=== PATIENT | female | born 1965 | race Caucasian/White ===

== ENCOUNTER → 2017-10-05 16:53 | Outpatient (CLI) | payer OTHER, SELFPAY ==
--- NOTE | 2017-10-05 17:00 | BI_ITS ---
MAMMOGRAPHY - BILATERAL SCREENING REASON FOR EXAM: Female, 51 years old. Routine annual screening examination. PERTINENT HISTORY: Grandmother with breast cancer. TECHNIQUE: Digital bilateral breast arabella (3D mammographic acquisition) in the CC and MLO projections. 2-D mediolateral oblique (MLO) and craniocaudad (CC) views of both breasts were obtained. CAD: Full Field Digital Mammography with Computer Added Detection was performed. COMPARISON: Comparison is made with prior study dated May 26, 2014. FINDINGS: Breast Composition: There are scattered areas of fibroglandular density. There are no dominant masses or suspicious calcifications. No other significant abnormalities are identified. There has been no significant change since the prior study. BI/SCREENING MAMM (CAD), BILAT IMPRESSION: Stable bilateral screening mammogram. Yearly follow-up mammogram recommended. (A) ASSESSMENT CATEGORY: BIRADS Category 1: Negative. A letter regarding these results will be sent to the patient by the facility within 30 days. Approximately 10% of breast cancers are not detected by mammography. A normal mammogram should not delay biopsy of a clinically suspicious abnormality. [id number] Electronically Signed: Almas Ramirez MD at 8:13 EDT Tel [phone], Service support ,
== END ==
PROVIDERS: Family Provider Family Medicine; PCP Family Medicine; Visit Provider Obstetrics & Gynecology
DX: Z12.31 Encounter for screening mammogram for malignant neoplasm of breast (principal)
CPT/HCPCS: 77063; 77067

== ENCOUNTER → 2017-11-21 07:52 | Outpatient (CLI) | payer OTHER, SELFPAY ==
[2017-11-21 08:50] LABS: Calcium,Total 8.8 mg/dL (8.5-10.1); Cholesterol 213 mg/dL (200); Glucose 103 mg/dL (74-106); High Density Lipoprotein 54 mg/dL; Triglycerides 186 mg/dL; Very Low Density Lipoprotein 37 mg/dL (5-40)
[2017-11-22 11:03] LABS: Vitamin D,25 Hydroxy 25.8 ng/mL (29.95-100.01)
== END ==
PROVIDERS: Family Provider Family Medicine; PCP Family Medicine; Visit Provider Family Medicine
DX: Z00.00 Encounter for general adult medical examination without abnormal findings (principal)
CPT/HCPCS: 36415; 80061; 82306; 82310; 82947

== ENCOUNTER 2017-11-24 06:16 | Day surgery (SDC) | payer OTHER, SELFPAY ==
[2017-11-24] VITALS (7 sets, daily range): BP systolic 87–112; BP diastolic 46–89; PULSE 60–78; RESP 14–16; TEMP 35.5–36.9; O2SAT 96–98; BMI 24.2
--- NOTE | 2017-11-24 06:53 | PCM.HP.STD ---
Problem List (1) Screening for intestinal cancer Status: Acute History of Present Illness Date of Admission: 11/24/17 The patient is a 52 year old F who presents for screening for intestinal cancer in the form of colonoscopy. She has never had a previous examination. She has no abdominal pain. No change of bowel habits. No bright red blood per rectum or melena. She is a good feeling of wellness. She enjoys good health. Past Medical History Allergies No Known Allergies Allergy (Verified 11/22/17 11:16) Home Medications: Ambulatory Orders Medication Instructions Recorded Aspirin/Acetaminophen/Caffeine 1 each PO PRN PRN 11/22/17 [Excedrin Extra Strength Caplet] Biocleanse 1 tab PO DAILY 11/22/17 Cetirizine HCl [Zyrtec] 10 mg PO DAILY 11/22/17 L.acidoph,Paracasei, B.lactis 1 each PO DAILY 11/22/17 [Probiotic] Naproxen Sodium [Aleve] 220 mg PO Q8H PRN PRN 11/22/17 Smoking Status: Never smoker Tobacco Use: Non-smoker Review of Systems Constitutional: Denies: Weight Change Eyes: Denies: Blurred vision, Vision Change HEENT: Denies: Ear Pain, Eye Pain Cardiovascular: Denies: Chest Pain, Claudication Respiratory: Denies: Cough, Shortness of Breath Gastrointestinal: Denies: Hematemesis, Hematochezia Genitourinary: Denies: Dysuria, Hematuria Musculoskeletal: Denies: Leg Pain Skin: Denies: Jaundice Neurological: Denies: Confusion Psychiatric: Denies: Depression Endocrine: Denies: Change in Body Habitus Hematologic/ Lymphatic: Denies: Easy Bleeding VTE Information - Inpt Only VTE Present on Admission: No Patient Problems: Active and Suspected Problems Screening for intestinal cancer (Acute) - Physical Exam General: Alert, Oriented x3, Cooperative, No apparent distress HEENT: Atraumatic Oral: Moist Mucosa Neck: Supple, No JVD Lungs: Clear to auscultation Cardiovascular: Regular rate, Regular Rhythm Abdomen: Bowel Sounds Present Extremities: No clubbing Skin: No rashes Musculoskeletal: No Tenderness to Palpation of Joints or Extremities Lymphatic: No Cervical, Supraclavicular, or Inguinal Adenopathy Neurological: Cranial nerves II-XII grossly intact Psych/Mental Status: Normal Affect Vital Signs Temp Pulse Resp BP Pulse Ox 96 F L 62 14 112/89 H 98 05/25/18 06:38 11/24/17 06:38 11/24/17 06:38 11/24/17 06:38 11/24/17 06:38 Oxygen Delivery Method Room Air Weight: 149 lb 14.629 oz Body Mass Index (BMI) 24.2 Assessment/Plan Active and Suspected Problems Screening for intestinal cancer (Acute) I plan to proceed with colonoscopy with possible biopsy or polypectomy is indicated. The patient is aware of the technique, benefits, risks, alternatives. She has had an opportunity to ask and have questions answered. She has tolerated her bowel preparation. She presents via open access. We will proceed as noted. Lee Hinkle M.D., F.A.C.S.
--- NOTE | 2017-11-24 07:23 | PCM.OPRPT ---
Problem List (1) Screening for intestinal cancer Status: Acute Report of Operation Date of Procedure: 11/24/17 Pre-Operative Diagnosis: Screening for intestinal cancer Post-Operative Diagnosis: Normal colonoscopy Surgery/Procedure Performed:: Colonoscopy Description of Surgical Findings:: Timeout and informed consent was obtained. 52-year-old female was taken to the endoscopy suite. Throughout the procedure she received a total of 100 mg Demerol and 4.5 mg of Versed is intravenous sedation. Digital rectal exam performed. Normal anal tone. No mass lesions. Flexible colonoscope inserted the rectum advanced through a quite tortuous sigmoid colon. Slowly and carefully the scope was advanced in the transverse colon the looping of the sigmoid could be reduced and then with transabdominal pressure the scope was advanced through the transverse colon to the cecum. The cecum ileocecal valve area was nicely achieved. Bowel prep was good there was still some liquid and scattered solid stool throughout the colon but it could be irrigated and aspirated for the most part. I felt that I had adequate visualization of mucosa. The scope was carefully withdrawn from the cecum ascending colon transverse colon descending colon and sigmoid. Again the distinct tortuosity of the sigmoid noted. Excess fluid and air was aspirated free the scope was retroflexed within the rectum anorectal verge inspected this too was not remarkable. The procedure was completed with the patient tolerating it well. Impression Normal colonoscopy with tortuous sigmoid colon. No previous screening examination. Next screening examination anticipated in 10 years. Cc: Dr. Ruddy Phelps Medications were given at 0700. Scope inserted at 0703. The cecum was reached at 0713.28. The procedure was completed at 0720.42. Lee Hinkle M.D., F.A.C.S. Type of Anesthesia:: IV Sedation
== END 2017-11-24 08:05 | disposition home or self-care (01) ==
LOC: EN 06:17 → AC 06:18
PROVIDERS: Family Provider Family Medicine; PCP Family Medicine; Visit Provider Surgery
PROC: 0DJD8ZZ Inspection of Lower Intestinal Tract, Via Natural or Artificial Opening Endoscopic (ICD-10-PCS; CPT 45378; principal; 2017-11-24 07:10)
DX: Z12.11 Encounter for screening for malignant neoplasm of colon (principal); Z79.82 Long term (current) use of aspirin
CPT/HCPCS: 45378; 99152; 99153; J7120

== ENCOUNTER → 2020-01-08 | Outpatient (CLI) | payer OTHER, SELFPAY ==
[2017-11-24 06:38] VITALS: BMI 24.2
[2020-01-08 17:00] LABS: Hematocrit 41.1 % (37-47); Hemoglobin 13.3 g/dL (12.0-15.0); Mean Corp Hgb Conc 32.4 g/dL (32-36); Mean Corpuscular Hgb 31.9 pg (27.0-32.0); Mean Corpuscular Volume 98.6 fL (81-99); Mean Platelet Vol. 10.3 fl (6.2-12.0); Platelet Count 387 K/mm3 (150-450); RBC Distribution Width CV 12.9 % (11.6-14.6); RBC Distribution Width SD 46.2 fl (35.1-43.9); Red Blood Count 4.17 M/mm3 (4.2-5.4); White Blood Count 8.6 K/mm3 (4.4-11.0)
[2020-01-08 17:36] LABS: ALB/GLOB Ratio 1.1 RATIO (0.9-2.4); AST(SGOT) 26 U/L (15-37); Alanine Aminotransfer ALT/SGPT 39 U/L (13-56); Albumin, Serum 3.8 g/dL (3.2-5.0); Alkaline Phosphatase 87 U/L (45-117); Anion Gap 6 (5-15); BUN 22 mg/dL (7-18); BUN/Creat Ratio 34.2 RATIO (10-20); Calcium,Total 8.3 mg/dL (8.5-10.1); Chloride 104 mmol/L (98-107); Creatinine, Serum 0.64 mg/dL (0.55-1.02); EST Glomerular Filtration Rate 102 mL/min (>60); Est Glom Filt Rate - Afr Amer 124 mL/min (>60); Globulin 3.5 g/dL (2.2-4.2); Glucose 88 mg/dL (74-106); Protein, Total 7.3 g/dL (6.4-8.2); Sodium Level 138 mmol/L (136-145); Thyroid Stim Hormone (TSH) 2.74 uIU/mL (0.358-3.74)
== END | disposition home or self-care (01) ==
LOC: LAB 16:30
PROVIDERS: PCP Nurse Practitioner Family; Referring Provider Nurse Practitioner Family; Visit Provider Nurse Practitioner Family
DX: R53.82 Chronic fatigue, unspecified (principal)
CPT/HCPCS: 36415; 80053; 84439; 84443; 85027

== ENCOUNTER → 2022-08-26 | Outpatient (CLI) | payer OTHER, SELFPAY ==
[2022-08-26 10:19] LABS: Hematocrit 44.3 % (37-47); Hemoglobin 14.1 g/dL (12.0-15.0); Mean Corp Hgb Conc 31.8 g/dL (32-36); Mean Corpuscular Hgb 30.9 pg (27.0-32.0); Mean Corpuscular Volume 97.1 fL (81-99); Mean Platelet Vol. 10.4 fl (6.2-12.0); Platelet Count 508 K/mm3 (150-450); RBC Distribution Width SD 46.5 fl (35.1-43.9); Red Blood Count 4.56 M/mm3 (4.2-5.4); White Blood Count 8.2 K/mm3 (4.4-11.0)
[2022-08-26 11:12] LABS: ALB/GLOB Ratio 1.1 RATIO (0.9-2.4); AST(SGOT) 17 U/L (15-37); Alanine Aminotransfer ALT/SGPT 26 U/L (13-56); Albumin, Serum 3.8 g/dL (3.2-5.0); Alkaline Phosphatase 90 U/L (45-117); Anion Gap 6 (5-15); BUN 24 mg/dL (7-18); BUN/Creat Ratio 34.4 RATIO (10-20); Calcium,Total 9.2 mg/dL (8.5-10.1); Chloride 105 mmol/L (98-107); Cholesterol 202 mg/dL (200); EST Glomerular Filtration Rate 92 mL/min (>60); Est Glom Filt Rate - Afr Amer 112 mL/min (>60); Globulin 3.6 g/dL (2.2-4.2); Glucose 112 mg/dL (74-106); High Density Lipoprotein 52 mg/dL; Potassium 4.3 mmol/L (3.5-5.1); Protein, Total 7.4 g/dL (6.4-8.2); Sodium Level 139 mmol/L (136-145); Thyroid Stim Hormone (TSH) 1.23 uIU/mL (0.358-3.74); Triglycerides 93 mg/dL; Very Low Density Lipoprotein 19 mg/dL (5-40)
== END | disposition home or self-care (01) ==
LOC: LAB 08:57
PROVIDERS: PCP Nurse Practitioner Family; Referring Provider Nurse Practitioner Family; Visit Provider Nurse Practitioner Family
DX: R53.82 Chronic fatigue, unspecified (principal); Z13.1 Encounter for screening for diabetes mellitus; Z13.6 Encounter for screening for cardiovascular disorders
CPT/HCPCS: 36415; 80053; 80061; 84443; 85027

== ENCOUNTER → 2022-11-18 | Outpatient (CLI) | payer OTHER, SELFPAY ==
--- NOTE | 2022-11-18 08:03 | BI_ITS ---
MAMMOGRAPHY - BILATERAL SCREENING REASON FOR EXAM: Female, 56 years old. Routine annual screening examination. PERTINENT HISTORY: Grandmother with breast cancer. History of prior bilateral breast reduction surgery. TECHNIQUE: Digital bilateral breast dajuan (3D mammographic acquisition) in the CC and MLO projections. 2-D mediolateral oblique (MLO) and craniocaudad (CC) views of both breasts were obtained. CAD: Full Field Digital Mammography with Computer Added Detection was performed. COMPARISON: Comparison is made with prior study dated October 05, 2017 and May 26, 2014. FINDINGS: Breast Composition: There are scattered areas of fibroglandular density. There are no dominant masses or suspicious calcifications. Since prior study, the patient underwent bilateral breast reduction surgery. No other significant abnormalities are identified. There has been no significant change since the prior study. BI/SCRN MAMM (CAD)W/DAJUAN BILAT IMPRESSION: Stable bilateral screening mammogram. Yearly follow-up mammogram recommended. (A) ASSESSMENT CATEGORY: BIRADS Category 2: Benign. A letter regarding these results will be sent to the patient by the facility within 30 days. Approximately 10% of breast cancers are not detected by mammography. A normal mammogram should not delay biopsy of a clinically suspicious abnormality. [id number] Electronically Signed: Almas Ramirez MD at 9:48 EDT ,
== END | disposition home or self-care (01) ==
LOC: OPBI 08:01
PROVIDERS: PCP Nurse Practitioner Family; Referring Provider Nurse Practitioner Family; Visit Provider Nurse Practitioner Family
DX: Z12.31 Encounter for screening mammogram for malignant neoplasm of breast (principal)
CPT/HCPCS: 77063; 77067

== ENCOUNTER → 2023-10-10 | Outpatient (CLI) | payer OTHER, SELFPAY ==
[2023-10-10 17:13] LABS: Absolute Lymphocyte Count 3.07 X10^3/uL (0.83-4.51); Absolute Neutrophil Count 4.6 X10^3/uL (2.0-7.7); Basophil# 0.09 X10^3/uL; Eosinophil# 0.19 X10^3/uL; Eosinophils% 2.2 % (0-5); Hematocrit 41.6 % (37-47); Hemoglobin 13.6 g/dL (12.0-15.0); Lymphocyte # 3.07 X10^3/ul (0.83-4.51); Lymphocyte % 35.3 % (19-41); Mean Corp Hgb Conc 32.7 g/dL (32-36); Mean Corpuscular Hgb 31.2 pg (27.0-32.0); Mean Corpuscular Volume 95.4 fL (81-99); Mean Platelet Vol. 10.1 fl (6.2-12.0); Monocyte# 0.69 X10^3/uL; Monocyte% 7.9 % (0-10); NRBC Flagged by Analyzer 0 % (0-5); Neutrophil # 4.63 X10^3/uL (2.7-7.7); Neutrophil % 53.4 % (47-70); Platelet Count 423 K/mm3 (150-450); RBC Distribution Width CV 13.4 % (11.6-14.6); RBC Distribution Width SD 47.6 fl (35.1-43.9); Red Blood Count 4.36 M/mm3 (4.2-5.4); White Blood Count 8.7 K/mm3 (4.4-11.0)
[2023-10-10 17:47] LABS: ALB/GLOB Ratio 1.1 RATIO (0.9-2.4); AST(SGOT) 25 U/L (15-37); Alanine Aminotransfer ALT/SGPT 45 U/L (13-56); Albumin, Serum 3.9 g/dL (3.2-5.0); Alkaline Phosphatase 76 U/L (45-117); Anion Gap 6 (5-15); BUN 23 mg/dL (7-18); BUN/Creat Ratio 29.8 RATIO (10-20); Calcium,Total 8.7 mg/dL (8.5-10.1); Chloride 105 mmol/L (98-107); Cholesterol 258 mg/dL (200); Creatinine, Serum 0.77 mg/dL (0.55-1.02); EST Glomerular Filtration Rate 82 mL/min (>60); Est Glom Filt Rate - Afr Amer 99 mL/min (>60); Globulin 3.4 g/dL (2.2-4.2); Glucose 102 mg/dL (74-106); High Density Lipoprotein 46 mg/dL; Potassium 3.8 mmol/L (3.5-5.1); Protein, Total 7.3 g/dL (6.4-8.2); Sodium Level 138 mmol/L (136-145); T4 Free Direct 0.84 ng/dL (0.76-1.46); Triglycerides 402 mg/dL
[2023-10-10 17:48] LABS: Hemoglobin A1c 5.9 % (3.8-5.6)
== END | disposition home or self-care (01) ==
LOC: LAB 16:41
PROVIDERS: PCP Nurse Practitioner Family; Referring Provider Nurse Practitioner Family; Visit Provider Nurse Practitioner Family
DX: Z00.00 Encounter for general adult medical examination without abnormal findings (principal); Z13.1 Encounter for screening for diabetes mellitus; E55.9 Vitamin D deficiency, unspecified; Z13.5 Encounter for screening for eye and ear disorders; Z13.6 Encounter for screening for cardiovascular disorders; E04.9 Nontoxic goiter, unspecified; D69.6 Thrombocytopenia, unspecified
CPT/HCPCS: 36415; 80053; 80061; 82306; 83036; 84439; 84443; 85025

== ENCOUNTER → 2023-11-24 | Outpatient (CLI) | payer OTHER, SELFPAY ==
--- NOTE | 2023-11-24 08:15 | BI_ITS ---
MAMMOGRAPHY - BILATERAL SCREENING 3-D TOMOSYNTHESIS REASON FOR EXAM: Female, 58 years old. SCREENING PERTINENT HISTORY: No significant family history. TECHNIQUE: 2-D mammograms and 3-D Tomosynthesis of the breast (s) were performed. CAD was performed. COMPARISON: 11/18/2022 FINDINGS: The breast composition is composed of scattered fibroglandular density. Scattered benign calcifications are seen. No dense spiculated masses or suspicious microcalcifications are identified. No architectural distortion is identified. There is no skin thickening or retraction. There has been no significant change since the prior study. BI/SCRN MAMM (CAD)W/DAJUAN BILAT IMPRESSION: No mammographic signs of malignancy. Routine yearly mammograms recommended. ASSESSMENT CATEGORY: BIRADS Category 1: Negative. A letter regarding these results will be sent to the patient by the facility within 30 days. FOLLOW UP RECOMMENDATION: Yearly follow up mammogram recommended. (A) Approximately 10% of breast cancers are not detected by mammography. A normal mammogram should not delay biopsy of a clinically suspicious abnormality. Electronically Signed: Andrea Felix MD at 18:26 EDT ,
[2023-11-24 09:59] LABS: Follicle Stimulating Hormone 67.7 mIU/mL
[2023-11-25 04:07] LABS: PROGESTERONE 0.2 ng/mL (.)
[2023-12-02 02:07] LABS: Estrogen, Total, Serum 120 pg/mL (40-244)
== END | disposition home or self-care (01) ==
PROVIDERS: PCP Nurse Practitioner Family; Referring Provider Family Medicine; Visit Provider Nurse Practitioner Family
DX: Z12.31 Encounter for screening mammogram for malignant neoplasm of breast (principal)
CPT/HCPCS: 36415; 77063; 77067; 82672; 83001; 83002; 84144

== ENCOUNTER → 2024-08-07 | Outpatient (CLI) | payer BC, SELFPAY ==
[2024-08-13 17:07] LABS: HPV APTIMA, High Risk Negative (Negative)
== END | disposition home or self-care (01) ==
PROVIDERS: PCP Nurse Practitioner Family; Visit Provider Advanced Practice Midwife
DX: Z12.4 Encounter for screening for malignant neoplasm of cervix (principal); Z78.0 Asymptomatic menopausal state
CPT/HCPCS: 87624; 88175; G0145

== ENCOUNTER → 2025-02-21 | Outpatient (CLI) | payer BC, SELFPAY ==
--- OUTSIDE RECORDS SUMMARY | 2025-02-21 07:12 | XMS RPT_ITS | CCD ---
Author Organization [facility] Team Providers Care Magnetizer Name Role Phone Ruddy Phelps DO Primary Care Provider Aure vailable Andrea Tapia CNP Primary Care Provider Andrea Tapia CNP Primary Care Provider ANDREA TAPIA Primary Care Unavailable ANDREA TAPIA Primary Care Unavailable MARYA MCDERMOTT Referring Unavailable ANDREA TAPIA Primary Care Unavailable ANDREA TAPIA Primary Care Unavailable Knox PATIENT CARE ASSOCIATE-C, Andrea Diggs Primary Care Provi layla Willie PATIENT CARE ASSOCIATE-C, Andrea Diggs Referring Provider Griselda PATIENT CARE ASSOCIATE-CMonet Attending Provider Monet Villalobos Attending Unavailable Knox PATIENT CARE ASSOCIATE, Andrea Diggs Primary Care Unav ailable Knox PATIENT CARE ASSOCIATE, Andrea Diggs Referring Unav ailable Monet Villalobos Attending Unavailable Willie PATIENT CARE ASSOCIATE, Andrea Diggs Referring Unav ailable Knox PATIENT CARE ASSOCIATE, Andrea Diggs Primary Care Unav ailable Kenny PATIENT CARE ASSOCIATERobi Attending Unavailable Knox PATIENT CARE ASSOCIATE, Andrea Diggs Primary Care Unav ailable Knox PATIENT CARE ASSOCIATE, Andrea Diggs Referring Unav ailable Knox PATIENT CARE ASSOCIATE, Andrea Diggs Primary Care Unav ailable Salena Robins Attending Unavailable Willie PATIENT CARE ASSOCIATE, Andrea Diggs Referring Unav ailable Monet Villalobos Attending Unavailable Willie PATIENT CARE ASSOCIATE, Andrea Diggs Referring Unav ailable Knox PATIENT CARE ASSOCIATE, Andrea Diggs Primary Care Unav ailTari Price Attending Unavailable Willie PATIENT CARE ASSOCIATE, Andrea Diggs Referring Unav ailable Willie PATIENT CARE ASSOCIATE, Andrea Diggs Primary Care Unav ailable Knox PATIENT CARE ASSOCIATE, Andrea Diggs Primary Care Unav ailSalena Lamb Attending Unavailable Allergies Allergy Classification Reported Allergen(s) Allergy Type Date of Onset Reaction(s) Facility (9 sources) Multivitamin Additive; Translations: [MULTIVITAMIN ADDITIVE] Drug Intolerance 2 Rash [facility] Work Phone: Medications Current Medications Medication Drug Class(es) Dates Sig (Normalized) Sig (Original) acetaminophen 250 mg / aspirin 250 mg / caffeine 65 mg oral tablet (4 sources) Platelet Aggregation Inhibitor, Nonsteroidal Anti-inflammatory Drug, Central Nervous System Stimulant, Methylxanthine Start: 11-22-2017 Aspirin-Acetamin ophen-Caffeine (Excedrin Extra Strength Caplet) 1 EACH tablet Active 1 NMA PO NEEDED as needed for Pain November 22, 2017 12:00am [id number] 200 actuat albuterol 0.09 mg/actuat metered dose inhaler (6 sources) beta2-Adrenergic Agonist Start: 07-02-2023 take 2 puff(s) by inhalation every six hours as needed albuterol HFA (PROAIR HFA) 90 mcg/actuation inhaler Inhale 2 Puffs as instructed every 6 hours as needed. 1 Each 07/02/2023 Active Comment on above: Inhale 2 Puffs as in structed every 6 hours as needed. apremilast 30 mg oral tablet (6 sources) Start: 02-06-2025 take 1 tablet by mouth once daily Apremilast (Otezla) 30 mg tablet Active 30 mg PO .COMPLEX February 06, 2025 12:00am 30 mg orally once a day; take 1 tablet by mouth twice shannan ly apremilast (OTEZLA) 30 mg tablet Take 30 mg by mouth two times a day. Active Comment on above: Take 30 mg by mouth two times a day. benzonatate 100 mg oral capsule (4 sources) Non-narcotic Antitussive Start: take 1 capsule by mouth every eight hours as needed benzonatate (TESSALON PERLES) 100 mg capsule Take 1 capsule by mouth three times a day as needed for cough. 28 capsule 08/01/2023 Active Comment on above: Take 1 capsule by [facility] three times a day as needed for cough. Collagen (1 source) Start: 5 collagen Active PO February 06, 2025 12:00am doxycycline hyclate 100 mg oral tablet (3 sources) Tetracycline-class Drug Start: 4 End: 4 take 1 tablet by mouth twice daily doxycycline (VIBRA-TABS) 100 mg tablet Take 1 tablet by mouth two times a day for 7 days. 14 tablet 0 08/03/2023 08/10/2023 Active Start: 07-02-2023 End: 07-09-2023 take 1 tablet by mouth twice daily doxycycline (VIBRA-TABS) 100 mg tablet Take 1 tablet by mouth two times a day for 7 days. 14 tablet 0 07/02/2023 07/09/2023 Active Comment on above: Take 1 tablet by dario th two times a day for 7 days. DULoxetine 60 mg delayed release oral capsule (8 sources) Serotonin and Norepinephrine Reuptake Inhibitor Start: 04-29-20 21 DULoxetine (CYMBALTA) 60 mg capsule 04/29/2021 Active escitalopram 10 mg oral tablet (8 sources) Serotonin Reuptake Inhibitor Start: 11-02-19 19 take 1 tablet by mouth once daily escitalopram oxalate (LEXAPRO) 10 mg tablet Take 1 tablet by mouth once daily. 11/01/2018 Active Comment on above: Take 1 tablet by dario th once daily. FLUoxetine 20 mg oral tablet (3 sources) Serotonin Reuptake Inhibitor Start: 07-21-19 25 take 1 tablet by mouth once daily Fluoxetine 20 mg tablet Active 20 mg PO daily July 21, 2024 1:00am take 1 capsule by mouth once shannan ly FLUoxetine (PROZAC) 20 mg capsule Take 20 mg by mouth once daily. Active fluticasone propionate 0.05 mg/actuat metered dose nasal spray (8 sources) Corticosteroid Start: 11-15-2018 take 2 spray(s) by mouth once daily fluticasone (FLONASE) 50 mcg/actuation nasal spray Indications: Sinusitis, unspecified chronicity, unspecified location Use 2 Sprays in each nostril once daily. Rinse mouth after use. 1 Bottle 11/15/2018 Active Comment on above: Use 2 Sprays in each nostril once daily. Rinse mouth after use. 12 hr guaiFENesin 600 mg extended release oral tablet (2 sources) Start: 08-03-2023 End: 08-10-2023 take 1 tablet by mouth twice daily as needed guaiFENesin (MUCINEX) 600 mg 12 hr tablet Take 1 tablet by mouth two times a day as needed for cold/allergy symptoms (cough) for up to 7 days. 14 tablet 0 08/03/2023 08/10/2023 Active Comment on above: Take 1 tablet by dario two times a day as needed for cold/allergy symptoms (cough) for up to 7 days. L.Acidoph, Paracasei,B. Lactis (3 sources) Start: 11-22-2017 L.Acidoph, Paracasei,B. Lactis Active 1 EACH PO DAILY November 22, 2017 12:00am Start: 11-22-2017 L.Acidoph, Par acasei,B. Lactis Active 1 EACH PO DAILY 2017 11:00pm L.Acidoph,Paracasei,B.Animal is 1 EACH capsule (1 source) Start: 11-22-2017 take 1 capsule by mouth once daily L.Acidoph,Paracasei,B.Animalis 1 EACH capsule Active 1 NMA PO DAILY November 22, 2017 12:00am Lactobacillus acidophilus (8 sources) Lactobacillus ac idophilus (PROBIOTIC ORAL) Take by mouth. Active Lactobacillus ac idophilus (PROBIOTIC ORAL) Take by mouth. 0 Active Comment on above: Take by mouth. levocetirizine dihydrochloride 5 mg oral tablet (1 source) Histamine-1 Receptor Antagonist Start: take 1 tablet by mouth once daily Levocetirizine (Xyzal) 5 mg tablet Active 5 mg PO daily February 06, 2025 12:00am meloxicam 15 mg oral tablet (8 sources) Nonsteroidal Anti-inflammatory Drug Start: meloxicam (MOBIC) 15 mg tablet 06/28/2021 Active Multivit With Min-Folic Acid 0.4 mg tablet (1 source) Start: Multivit With Min-Folic Acid 0.4 mg tablet Active {tbl} PO February 06, 2025 12:00am omeprazole 20 mg delayed release oral capsule (1 source) Proton Pump Inhibitor Start: take 1 capsule by mouth once daily Omeprazole 20 mg capsule,delayed release(DR/EC) Active 20 mg PO daily February 06, 2025 12:00am prebiotic (1 source) Start: prebiotic Active PO February 06, 2025 12:00am rOPINIRole 0.5 mg oral tablet (9 sources) Nonergot Dopamine Agonist Start: 025 take 1 tablet by mouth once daily Ropinirole 0.5 mg tablet Active 0.5 mg PO daily August 21, 2024 1:00am Start: 06-24-2022 rOPINIRole (RE QUIP) 0.5 mg tablet 06/24/2022 Active 1 mg dose 1.5 ml semaglutide 1.34 mg/ml pen injector (2 sources) Start: 07-10-2024 inject 1 mg by subcutaneous injection every week semaglutide (OZEMPIC) 1 mg/0.75 ml subcutaneous pen injector Inject 1 mg subcutaneously one time a week. 07/10/2024 Active Completed/Discontinued Medications Medication Drug Class(es) Dates Sig (Normalized) Sig (Original) amoxicillin 500 mg oral tablet (1 source) Penicillin-class Antibacterial Start: 07-21-2024 End: 07-31-2024 take 1 tablet by mouth every twelve hours Amoxicillin 500 mg tablet Discontinued 500 mg PO Q12H 20 10 0 July 21, 2024 1:00am July 30, 2024 1:00am July 31, 2024 1:09am Biocleanse (4 sources) Start: 11-22-2017 End: 08-21-2024 Biocleanse Discontinued 1 {tbl} PO DAILY November 22, 2017 12:00am August 21, 2024 9:17am Start: 11-22-2017 take 1 tablet by dario th once daily Biocleanse Active 1 TABLET PO DAILY November 22, 2017 12:00am Start: 11-22-2017 take 1 tablet by dario th once daily Biocleanse Active 1 TABLET PO DAILY 2017 11:00pm cetirizine hydrochloride 10 mg oral capsule (4 sources) Histamine-1 Receptor Antagonist Start: 11-22-2017 End: 08-21-2024 take 1 capsule by mouth once daily Cetirizine (Zyrtec) 10 MG capsule Discontinued 10 mg PO DAILY November 22, 2017 12:00am August 21, 2024 9:17am estradiol 0.1 mg/ml vaginal cream (1 source) Estrogen Start: 08-21-2024 End: 02-06-2025 Estradiol 0.01 % (0.1 mg/gram) cream Discontinued 0 VAGINAL DAILY 42.5 0 August 21, 2024 1:00am February 06, 2025 1:23pm pea sized amount using finger tip method every night x 2 weeks then 2-3 times a week there after. naproxen sodium 220 mg oral tablet (4 sources) Nonsteroidal Anti-inflammatory Drug Start: 11-22-2017 End: 08-21-2024 take 1 tablet by mouth every eight hours as needed for pain Naproxen Sodium (Aleve) 220 MG tablet Discontinued 220 mg PO EVERY 8 HOURS NEEDED as needed for Pain November 22, 2017 12:00am August 21, 2024 9:17am Semaglutide 3 mg tablet (1 source) Start: 08-21-2024 End: 02-06-2025 take 1 tablet by mouth once daily Semaglutide 3 mg tablet Discontinued 3 mg PO daily August 21, 2024 1:00am February 06, 2025 1:23pm Problems Active Problems Problem Classification Problem Date Documented Date Episodic/Chronic Fever of unknown origin (1 source) Fever; Translations: [Fever, unspecified] 08-03-2023 Episodic Menopausal disorders (2 sources) Atrophy of vagina; Translations: [Postmenopausal atrophic vaginitis] Onset: 09-05-2024 08-21-2024 Chronic Other lower respiratory disease (1 source) Lower respiratory tract infection; Translations: [Unspecified acute lower respiratory infection] 07-02-2023 Episodic Other lower respiratory disease (1 source) Cough; Translations: [Acute cough] 08-01-2023 Episodic Other nutritional; endocrine; and metabolic disorders (2 sources) Body mass index 25-29 - overweight; Translations: [Overweight] 08-21-2024 Episodic Residual codes; unclassified (2 sources) Postmenopausal state; Translations: [Asymptomatic menopausal state] 08-21-2024 Episodic Unclassified (1 source) Acute cough; Translations: [Acute cough] Onset: 08-01-2023 Viral infection (1 source) Viral disease; Translations: [Viral infection, unspecified] 08-03-2023 Episodic Past or Other Problems Problem Classification Problem Date Documented Da te Episodic/Chronic Malaise and fatigue (8 sources) Fatigue; Translations: [Other fatigue] Onset: 04-10-2012 04-10-2012 Episodic Other nutritional; endocrine; and metabolic disorders (1 source) Overweight; Translations: [Overweight] Onset: 09-05-2024 Episodic Other screening for suspected conditions (not mental disorders or infectious disease) (13 sources) Thyroid function tests abnormal; Translations: [Other specified abnormal findings of blood chemistry] Onset: 04-10-2012 04-10-2012 Episodic Other upper respiratory infections (6 sources) Viral upper respiratory tract infection; Translations: [Acute upper respiratory infection, unspecified] Onset: 07-29-2024 Episodic Residual codes; unclassified (1 source) Asymptomatic menopausal state; Translations: [Asymptomatic menopausal state] Onset: 09-05-2024 Episodic Results Test Name Value Interpretation Reference Range Facility Solvent Plant Treater Office Visit Reporton 02-06-2025 Solvent Plant Treater Office Visit Report [facility]'s [address], [address] [place] [address] OFFICE VISIT Date of Service: 02/06/25 MR#: [id number] Acct: [id number] Name: TOMEKA ALEXANDRE Rep #: [id number] : 1965 Provider: DAMIEN Leigh Age/Sex: 59/F [place] [facility] [place]: Signed Intake Vital Signs 08/21/24 08:14 01/31/25 08:41 02/06/25 13:17 Height 5 ft 6 in 5 ft 6 in 5 ft 6 in Weight: 161 lb 174 lb 9 oz BMI 25.9 28.1 BP 114/77 142/76 H Pulse 72 Intake Visit Reasons: NEW WEIGHT MANAGEMENT (ok per AW) Level Vial Inside Grinder Required: No Is patient in pain?: No Allergies No Known Allergies Allergy (Verified 02/06/25 13:16) Medications ???Medication ???Instructions ???Recorded ???Confirmed ???Type L.acidoph,paracasei,B .animalis 10 1 ea PO DAILY 11/22/17 02/06/25 H istory billion cell capsule aspirin-acetaminophen -caffeine 250 1 ea PO PRN PRN Pain 11/22/17 History mg-250 mg-65 mg tablet (Excedrin Extra Strength) fluoxetine 20 mg tablet 20 mg PO QDAY 07/21/24 02/06/25 Hi story ropinirole 0.5 mg tablet 0.5 mg PO QDAY 08/21/24 02/06/25 H istory apremilast 30 mg tablet (Otezla) 30 mg PO .COMPLEX 02/06/25 5 History collagen PO 02/06/25 02/06/25 History levocetirizine 5 mg tablet (Xyzal) 5 mg PO QDAY 02/06/25 02/06/25 H istory multivitamin with minerals-folic tab PO 02/06/25 02/06/25 History acid 0.4 mg tablet omeprazole 20 mg capsule,delayed 20 mg PO QDAY 02/06/25 02/06/25 Hi story release prebiotic PO 02/06/25 History Last Menstrual Period: 07/03/14 Zika: Zika virus screening: Negative : No Have you fallen in the past year?: No PFSH PFSH Medical History Pneumonia Kidney stones Headache Seasonal allergies Surgical History Hx of breast reduction, elective H/O splenectomy Family History Father Alcoholism Mother Diabetes Hypertension High cholesterol Social History adopted: No household members: spouse housing: house number of children: 2 current occupational status: employed current occupation: [employer] pets and animals: Yes pets and animals: cat(s) and dog(s) history of recent travel: No sexually active: Yes Smoking Status: Never smoker second hand exposure: No alcohol intake: never substance use type: does not use well-balanced diet: daily or most days caffeine: Yes Type: coffee Number of servings: 1 eating out: other details: during the past year weight has: remained stable what type of physical activity do you participate in: yoga frequency: 3-4 times per week yola/jainism: Hoahaoism seatbelt use: always do you feel safe at home: Yes additional social history: - Yossi CHRISTIANO 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 She reports she feels sluggish; feels disgusting. She eats right and exercises and feels she can still not find a budge in her weight loss. She would like to make changes now so that her future health can benefit from it. She was previously taking semaglutide (most recent) compounded and got sick from this (nausea/vomiting); was on 2.5mg dosing x 6 months. Prior to this she was taking phentermine--did well with this and lost approx 10-15 lbs. Female Reproductive History Last Menstrual Period: 07/03/14 ROS Const Reports as per HPI, Denies difficulty sleeping, Denies excessive sweating, Denies fatigue (new onset severe) and Denies fever(s) Eyes Denies change in vision and Denies diplopia ENT Denies dizziness Card Denies chest pain, Denies dyspnea, Denies dyspnea on exertion, Denies palpitations and Denies rapid heart rate Resp Denies dyspnea and Denies dyspnea on exertion GI Reports as per HPI, Denies abdominal pain and Denies constipation Musc Denies numbness Neuro No confusion, No dizziness, No memory loss and No numbness Psych Denies confusion, Denies depression, Denies memory loss, Denies mood swings and Denies suicidal ideation Endo Denies excessive sweating, Denies fatigue (new onset severe), Denies palpitations and Reports other (denies symptoms of hypoglycemia) Exam Const General: cooperative, healthy appearing, comfortable and no acute distress Orientation: alert HENMT Head: normal to inspection and normocephalic Eyes General: appearance normal, both eyes and all related structures Neck Neck: normal visual inspection, no lymphadenopathy and trachea midline Thyroid: thyroid normal Resp Effort Inspection: normal respiratory effort Auscultation: clear to auscult (more content not included)... Normal [facility] Solvent Plant Treater Office Visit Reporton 08-21-2024 Solvent Plant Treater Office Visit Report [facility] [address], [address] [place] [address] OFFICE VISIT Date of Service: 08/21/24 MR#: [id number] Acct: [id number] Name: TOMEKA ALEXANDRE Rep #: [id number] : 1965 Provider: DAMIEN Leigh Age/Sex: 58/F [place] [facility] [place]: Signed Intake Vital Signs 08/07/24 11:01 08/21/24 08:14 Height 5 ft 6 in 5 ft 6 in Weight: 161 lb BMI 25.9 BP 114/77 Intake Visit Reasons: HRT Level Vial Inside Grinder Required: No Is patient in pain?: No Allergies No Known Allergies Allergy (Verified 08/21/24 08:12) Medications ???Medication ???Instructions ???Recorded ???Confirmed ???Type L.acidoph,paracasei,B .animalis 10 1 ea PO DAILY 11/22/17 08/21/24 H istory billion cell capsule aspirin-acetaminophen -caffeine 250 1 ea PO PRN PRN Pain 11/22/17 History mg-250 mg-65 mg tablet (Excedrin Extra Strength) fluoxetine 20 mg tablet 20 mg PO QDAY 07/21/24 08/21/24 Hi story ropinirole 0.5 mg tablet 0.5 mg PO QDAY 08/21/24 08/21/24 H istory semaglutide 3 mg tablet 3 mg PO QDAY 08/21/24 08/21/24 His tory PFSH Medical History Pneumonia Kidney stones Headache Seasonal allergies Surgical History Hx of breast reduction, elective H/O splenectomy Family History Father Alcoholism Mother Diabetes Hypertension High cholesterol Social History adopted: No household members: spouse housing: house number of children: 2 current occupational status: employed current occupation: [employer] pets and animals: Yes pets and animals: cat(s) and dog(s) history of recent travel: No sexually active: Yes Smoking Status: Never smoker second hand exposure: No alcohol intake: never substance use type: does not use well-balanced diet: daily or most days caffeine: Yes Type: coffee Number of servings: 1 eating out: other details: during the past year weight has: remained stable what type of physical activity do you participate in: yoga frequency: 3-4 times per week yola/jainism: Hoahaoism seatbelt use: always do you feel safe at home: Yes additional social history: - [employer] HRT Details: TOMEKA ALEXANDRE is a 58 year old who presents for discussion regarding post menopausal symptoms. She reports she is experiencing low libido; vaginal dryness; and resistant weight loss. She is currently taking semaglutide compound. Previously took phentermine and did well on this. Female Reproductive History Menopausal Symptoms: Yes change in libido ROS Const Constitutional: Reports weight loss (with medication-intentiona l); Denies chills Cardio Card: Denies palpitations Resp Resp: Reports cough (ongoing since ) : Reports sexual dysfunction (painful due to dryness) and vaginal dryness; Denies pelvic pain, vaginal discharge, vaginal odor or vaginal pruritus Psych Psych: Reports change in libido Exam Const General: cooperative, healthy appearing, comfortable and no acute distress Orientation: alert, awake and oriented x3 Resp Effort Inspection: normal respiratory effort, able to speak in complete sentences and symmetric chest movement Skin General: no rashes or lesions noted Neuro General: patient alert, patient awake and patient oriented x3 Cognition: normal cognition Speech: speech normal Gait: normal gait Psych Appearance: grossly normal and well kempt Mental Status: mental status grossly normal Affect: normal affect Speech and Movement: speech and movement normal Attitude: cooperative Thought Process: normal Thought Content: normal Judgment: judgment good Coding Level of Care Code Established Pt Off vis,est,level 3 Patient Type Established Diagnoses Vaginal atrophy N95.2 Post-menopausal Z78.0 Overweight (BMI 25.0-29.9) E66.3 Assessment and Plan Assessment and Plan (1) Vaginal atrophy: Status: Acute Plan: Start estradiol-instruction s for use given to patient. Side effects advised. Expectations of results discussed. RTO for med check in 12 weeks. (2) Post-menopausal: Status: Acute Plan: Discussed HRT--will defer this treatment for now. Enroll into Weight Management Program--current BMI stable; interested in different lifestyle modifications. (3) Overweight (BMI 25.0-29.9): Status: Acute Plan: WM program--currently on compounded semaglutide--prescrib ed elsewhere. 08/21/24 7471 Date Monet QUEZADA Cosigner Signature: Date (if applicable) CC: Normal [facility] PAP IG HPV APTIMA 16/18,45on 08-13-2024 ADEQ Comment Normal . [facility] Comment on above: Order Comment: Speci men Comment: [id number] Specimen Comment: Source.............Cervix Specimen Comment: Other..............Post Menopausal Specimen Comment: No. of containers..01 ThinPrep Vial Result Comment: Sati sfactory for evaluation. Endocervical and/or squamous metaplastic cells (endocervical component) are present. Performed By: #### L 7400.0280 #### [facility] [address] [place], [address] COMM . Normal . [facility] Comment on above: Order Comment: Speci men Comment: [id number] Specimen Comment: Source.............Cervix Specimen Comment: Other..............Post Menopausal Specimen Comment: No. of containers..01 ThinPrep Vial Performed By: #### L 7400.0280 #### [facility] [address] [place], [address] COMMENT Comment Normal . [facility] Comment on above: Order Comment: Speci men Comment: [id number] Specimen Comment: Source.............Cervix Specimen Comment: Other..............Post Menopausal Specimen Comment: No. of containers..01 ThinPrep Vial Result Comment: This liquid based ThinPrep(R) pap test was screened with the use of an image guided system. Performed By: #### L 7400.0280 #### [facility] [address] [place], [place], [id number] DIAG Comment Normal . [facility] Comment on above: Order Comment: Speci men Comment: [id number] Specimen Comment: Source.............Cervix Specimen Comment: Other..............Post Menopausal Specimen Comment: No. of containers..01 ThinPrep Vial Result Comment: NEGA TIVE FOR INTRAEPITHELIAL LESION OR MALIGNANCY. Performed By: #### L [id number] #### [facility] [address] [place], [place], [id number] HPV APTIMA, HR Negative Normal Negative [facility] Comment on above: Order Comment: Speci men Comment: [id number] Specimen Comment: Source.............Cervix Specimen Comment: Other..............Post Menopausal Specimen Comment: No. of containers..01 ThinPrep Vial Result Comment: This nucleic acid amplification test detects fourteen high- risk HPV types (16,18,31,33,35,39,45,51,52,56,58,59,66,68) without differentiation. Performed By: #### L 7400.0280 #### [facility] [address] [facility] [place], [place], [id number] HPV Lynn Rfx Comment Normal . [facility] Comment on above: Order Comment: Speci men Comment: [id number] Specimen Comment: Source.............Cervix Specimen Comment: Other..............Post Menopausal Specimen Comment: No. of containers..01 ThinPrep Vial Result Comment: Crit eria not met, HPV Genotype not performed. Performed at: [address] [id number] Road[address] Engineer: Sultana Dela Cruz MD, Phone: [phone] Performed at: =[address] [id number] Road[address] Engineer: Sultana Dela Cruz MD, Phone: [phone] Performed By: #### L [id number] #### [facility] [address] [place], [address] PAPSMR Comment Normal . [facility] [facility] Comment on above: Order Comment: Speci men Comment: [id number] Specimen Comment: Source.............Cervix Specimen Comment: Other..............Post Menopausal Specimen Comment: No. of containers..01 ThinPrep Vial Result Comment: The Pap smear is a screening test designed to aid in the detection of premalignant and malignant conditions of the uterine cervix. It is not a diagnostic procedure and should not be used as the sole means of detecting cervical cancer. Both false-positive and false-negative reports do occur. Performed By: #### L [id number] #### [facility] [address] [place], [place], [address] PERFORM Comment Normal . [facility] Comment on above: Order Comment: Speci men Comment: [id number] Specimen Comment: Source.............Cervix Specimen Comment: Other..............Post Menopausal Specimen Comment: No. of containers..01 ThinPrep Vial Result Comment: Yas Mayberry, Material Combiner (ASCP) Performed By: #### L [id number] #### [facility] [address] [place], [place], [address] Solvent Plant Treater Office Visit Reporton 08-07-2024 Solvent Plant Treater Office Visit Report [facility] [address], [address] [place] [address] OFFICE VISIT Date of Service: 08/07/24 MR#: [id number] Acct: [id number] Name: TOMEKA ALEXANDRE Rep #: [id number] : 1965 Provider: DONOVAN Batista ams Age/Sex: 58/F Location[place] [facility] Status: Signed Intake Vital Signs 11/24/17 06:38 07/21/24 08:58 08/07/24 10:51 08/07/24 11:01 Height 5 ft 6 in 5 ft 6 in 5 ft 6 in 5 ft 6 in Weight: 160 lb BMI 25.8 BP 116/74 Intake Visit Reasons: Annual (LANDMEN) Level Vial Inside Grinder Required: No Is patient in pain?: No Allergies No Known Allergies Allergy (Verified 08/07/24 10:52) Medications ???Medication ???Instructions ???Recorded ???Confirmed ???Type Biocleanse 1 tab PO DAILY 11/22/17 08/07/24 H istory L.acidoph,paracasei,B .animalis 10 1 ea PO DAILY 11/22/17 08/07/24 H istory billion cell capsule aspirin-acetaminophen -caffeine 250 1 ea PO PRN PRN Pain 11/22/17 History mg-250 mg-65 mg tablet (Excedrin Extra Strength) cetirizine 10 mg capsule (Zyrtec) 10 mg PO DAILY 11/22/17 08/07/24 History naproxen sodium 220 mg tablet 220 mg PO Q8H PRN PRN Pain 8 08/07/24 History (Aleve) fluoxetine 20 mg tablet 20 mg PO QDAY 07/21/24 08/07/24 Hi story Post menopausal: Yes Patient : No : No Current gender identity: female [facility] Medical History (Updated 08/07/24 @ 11:01 by Martha Gray) Pneumonia Kidney stones Headache Seasonal allergies Surgical History (Updated 08/07/24 @ 10:59 by Martha Gray) Hx of breast reduction, elective H/O splenectomy Family History (Updated 08/07/24 @ 10:58 by Martha Gray) Father Alcoholism Mother Diabetes Hypertension High cholesterol Social History adopted: No household members: spouse housing: house number of children: 2 current occupational status: employed current occupation: [employer] pets and animals: Yes pets and animals: cat(s) and dog(s) history of recent travel: No sexually active: Yes Smoking Status: Never smoker second hand exposure: No alcohol intake: never substance use type: does not use well-balanced diet: daily or most days caffeine: Yes Type: coffee Number of servings: 1 eating out: other details: during the past year weight has: remained stable what type of physical activity do you participate in: yoga frequency: 3-4 times per week yola/jainism: Hoahaoism seatbelt use: always do you feel safe at home: Yes additional social history: - Yossi HPI Encounter for routine gynecological examination Details: TOMEKA ALEXANDRE is a 58 year old who presents for new annual exam. had yeast infection from antibiotics and was on Monistat. went through menopause at age 44 and does have some vaginal dryness. would like to try different lubricants for intercourse and vitamin E oil before any estrogen cream. On Semaglutide for weight loss without much success. would like to discuss weight loss options at follow up visit Last PAP: 2017 History of abnormal PAP: no Last mammogram: - ordered by PCP History of abnormal mammogram: no Colon cancer screenin Other preventative health care screenings: PCP Female Reproductive History Questions: metorrhagia: No, sexually active: Yes, dyspareunia: No and PCB: No ROS Const Constitutional: Reports system reviewed and no additional complaints, except as documented Cardio Card: Reports system reviewed and no additional complaints, except as documented Resp Resp: Reports system reviewed and no additional complaints, except as documented GI GI: Reports system reviewed and no additional complaints, except as documented : Reports system reviewed and no additional complaints, except as documented; Denies difficulty voiding, dysuria or urinary frequency Skin Skin/Breast: Reports system reviewed and no additional complaints, except as documented Neuro Neuro: Reports system reviewed and no additional complaints, except as documented Psych Psych: Reports system reviewed and no additional complaints, except as documented; Denies anhedonia, anxiety or depression Exam Const General: cooperative, healthy appearing, comfortable and no acute distress Orientation: alert, awake and oriented x3 Neck Neck: normal visual inspection and full ROM Thyroid: thyroid normal Chest Breast inspection: normal inspection of the breasts and normal inspection of the axillae Breast palpation: normal palpation of the breasts and normal palpation of the axillae Resp Effort Inspection: normal respiratory effort, able to speak in complete sentences and symmetric chest movement GI Inspection: normal to inspection Palpation: soft Rectal Exam: visual inspection normal External Female Exam: normal ext (more content not included)... Normal [facility] Mary Kate 07-21-2024 [facility] Telephone ([facility]) TOMEKA ALEXANDRE ([id number]) 1965 F Date Time Provider Department 07/21/24 MARYA MCDERMOTT [facility] During your visit today, we recorded the following information about you: Marya Mcdermott APRN.PROFESSOR OF FOOD BIOCHEMISTRY 07/21/2024 8:08 AM Signed You tested negative for COVID, Influenza, and RSV. Please contact us if your symptoms are worsening or not improving. Please advise Marya Mcdermott APRN.CNP 07/21/2024 8:29 AM Signed Attempted to call patient. Requested call back. Please discuss when calls back. Rohini Miller MA 07/22/2024 8:04 AM Signed Patient given results and verbalized understanding of instructions given. Rohini Miller MA Allergies As of Date: 07/21/2024 Noted Allergy Reaction MULTIVITAMIN ADDITIVE 04/10/2012 2 - Rash Comments: Took a multivitamin for energy which had lots of B vitamins. Broke out in a rash after 2 days. Date Reviewed: 07/20/2024 Reviewed by: Elsi Sampson LPN - Fully Assessed Reason for Visit: Results [95] Prescriptions as of 07/22/2024 - semaglutide (OZEMPIC) 1 mg/0.75 ml subcutaneous pen injector Inject 1 mg subcutaneously one time a week. - FLUoxetine (PROZAC) 20 mg capsule Take 20 mg by mouth once daily. - apremilast (OTEZLA) 30 mg tablet Take 30 mg by mouth two times a day. - benzonatate (TESSALON PERLES) 100 mg capsule Take 1 capsule by mouth three times a day as needed for cough. - albuterol HFA (PROAIR HFA) 90 mcg/actuation inhaler Inhale 2 Puffs as instructed every 6 hours as needed. - rOPINIRole (REQUIP) 0.5 mg tablet - meloxicam (MOBIC) 15 mg tablet - DULoxetine (CYMBALTA) 60 mg capsule - Lactobacillus acidophilus (PROBIOTIC ORAL) Take by mouth. - escitalopram oxalate (LEXAPRO) 10 mg tablet Take 1 tablet by mouth once daily. - fluticasone (FLONASE) 50 mcg/actuation nasal spray Use 2 Sprays in each nostril once daily. Rinse mouth after use. Problem List As Of Date 07/21/2024 Noted Resolved Abnormal thyroid blood test [R79.89] 04/10/2012 Fatigue [R53.83] 04/10/2012 Encounter Status:Closed by ROHINI MILLER on 07/22/24 Normal [facility] Urgent Care Visit Reporton 0 07-21-2024 Urgent Care Visit Report [facility] [address], [address] [place] [id number] OFFICE VISIT Date of Service: 07/21/24 MR#: [id number] Acct: [id number] Name: TOMEKA ALEXANDRE Rep #: [id number] : 1965 Provider: [facility] Age/Sex: 58/F Location[place] [facility] Status: Signed Intake Vital Signs 11/24/17 06:38 07/21/24 08:58 Height 5 ft 6 in 5 ft 6 in Weight: 161 lb BMI 25.9 Blood Pressure Location Lt brachial Position Sitting Respiration 12 Pulse 104 H Pulse Source NIBP Temp 99.2 F H Temp Source Oral Pulse Oximetry (%) 96 Oxygen Delivery Method room air Intake Visit Reasons: sore throat, drainage, fever Allergies No Known Allergies Allergy (Verified 07/21/24 08:59) Medications ???Medication ???Instructions ???Recorded ???Confirmed ???Type Biocleanse 1 tab PO DAILY 11/22/17 07/21/24 History L.acidoph,paracasei,B .animalis 10 1 ea PO DAILY 11/22/17 07/21/24 History billion cell capsule aspirin-acetaminophen -caffeine 250 1 ea PO PRN PRN Pain 11/22/17 07/21/24 History mg-250 mg-65 mg tablet (Excedrin Extra Strength) cetirizine 10 mg capsule (Zyrtec) 10 mg PO DAILY 11/22/17 07/21/24 History naproxen sodium 220 mg tablet 220 mg PO Q8H PRN PRN Pain 11/22/17 07/21/24 History (Deni) amoxicillin 500 mg tablet 500 mg PO Q12H 10 days #20 tabs 07/21/24 07/21/24 Rx fluoxetine 20 mg tablet 20 mg PO QDAY 07/21/24 07/21/24 History PFSH Social History Smoking Status: Never smoker HPI HPI Details: TOMEKA ALEXANDRE, is a 58 F who presents to the office today for fever, severe sore throat, white puss pockets on tonsils. Ran isaac strep test that was negative. This is worsening over the last two days. She has tried OTC medications with minimal relieve. She states probable sick contacts. ROS Const Constitutional: Positive for fever(s) (Tmax: 100.8); No body ache, chills, fatigue, headache(s) or change in appetite Eyes Eyes: No blurry vision, change in vision, double vision, irritation, discharge, vision loss, dry eyes, bulging eyes, floaters, visual disturbances, eye pain, Light sensitivity, spots in vision, tunnel vision or other ENT ENT: Positive for nasal congestion (at night), sinus pain, nasal discharge, post nasal drip, hoarseness, neck pain and sore throat; No ear or mastoid pain, ear discharge, ear pressure, tinnitus, dizziness/vertigo, nosebleed/epistaxis, nose pain, sinus pressure, headache(s), facial pain, dental pain, difficulty swallowing, bad breath, lip swelling, mouth lesions, mouth pain, tongue swelling or throat swelling Resp Respiratory: Positive for cough Cough: Yes non-productive; No change in phlegm color, chest congestion, hemoptysis, pain on inspiration, shortness of breath, pain with cough, stridor or wheezing Cardio Cardiology: No chest pain at rest, chest pain with exertion, shortness of breath, dyspnea on exertion or lightheadedness Gastro GI: No abdominal pain, change in bowel habits, constipation, diarrhea, difficulty swallowing, nausea/dyspepsia or vomiting Genitourinary-Female: No burning urination or urinary frequency Musc Musculoskeletal: Positive for neck pain; No joint pain Skin Skin: No rash Neuro Neurology: No headache(s) or visual disturbances Psych Psychiatric: No change in appetite Endo Endocrine: No fatigue Aller/Imm Allergy/Immunologic: No lip swelling, throat swelling, tongue swelling or wheezing Exam Const General: cooperative, healthy appearing, comfortable and no acute distress Orientation: alert, awake and oriented x3 [facility] Head: normal to inspection and normocephalic Ears: hearing grossly normal bilaterally, external ears normal and TM's normal bilaterally Nose: external nose normal, nares normal and no nasal discharge Face and sinus: normal facial exam and sinuses nontender Mouth: oral mucosae normal, lip normal, tongue normal, oropharynx normal and moist mucous membranes Throat: uvula midline, abnormal tonsil bilaterally exudates, posterior oropharynx abnormal erythema and exudates and postnasal drainage Eyes General: appearance normal, both eyes and all related structures Neck Neck: normal visual inspection and no lymphadenopathy Carotids: normal carotid upstroke Lymphatic: no lymphadenopathy noted Chest Chest palpation inspection: normal inspection of the chest Resp Effort Inspection: normal respiratory effort, able to speak in complete sentences, symmetric chest movement, no cough and no stridor Auscultation: Bilateral: Clear to Auscultation Cardio Rate: regular rate Rhythm: regular rhythm Heart Sounds: S1 normal, S2 normal and no murmurs GI Inspection: normal to inspection Auscultation: normal bowel sounds Palpation: soft Skin General: no rashes or lesions noted Neuro Speech: s (more content not included)... Normal [facility] CNOVon 07-20-2024 CNOV Office Visit (UCWSTR ) TOMEKA ALEXANDRE ([id number]) 1965 F Date Time Provider Department 07/20/24 9:45 AM RADHA SULTANA [facility] During your visit today, we recorded the following information about you: Temperature Pulse Respiration Blood pressure 99.4 degrees 93/minute 18/minute 110/71 Weight 75 kg Radha Sultana APRN.PROFESSOR OF FOOD BIOCHEMISTRY 07/20/2024 10:17 AM Signed Subjective HPI Tomeka Alexandre is a 58 year old female who presents with one day of fever, body aches, sore throat, headache. She has had some intermittent nausea. Fever at home was 100.5 F. She took tylenol this morning. A coworker's daughter was treated for strep last week. . Review of Systems Constitutional: Positive for fever. HENT: Positive for congestion and sore throat. Negative for ear pain. Respiratory: Negative for cough. Cardiovascular: Negative. Gastrointestinal: Negative for diarrhea, nausea and vomiting. Musculoskeletal: Positive for myalgias. Neurological: Positive for headaches. BP 110/71 Pulse 93 Temp 37.4 ?C (99.4 ?F) Resp 18 Wt 75 kg (165 lb 5.5 oz) LMP 04/15/2011 SpO2 96% BMI 26.69 kg/m? PAST MEDICAL HISTORY Diagnosis Date NEGATIVE MEDICAL HISTORY PAST SURGICAL HISTORY Procedure Laterality Date LIGATE FALLOPIAN TUBE 1998 REDUCTION OF LARGE BREAST 2018 REMOVAL OF SPLEEN TOTAL ALLERGIES Multivitamin Additive MEDICATIONS semaglutide (OZEMPIC) 1 mg/0.75 ml subcutaneous pen injector Inject 1 mg subcutaneously one time a week. FLUoxetine (PROZAC) 20 mg capsule Take 20 mg by mouth once daily. rOPINIRole (REQUIP) 0.5 mg tablet Lactobacillus acidophilus (PROBIOTIC ORAL) Take by mouth. apremilast (OTEZLA) 30 mg tablet Take 30 mg by mouth two times a day. (Patient not taking: Reported on 07/20/2024) benzonatate (TESSALON PERLES) 100 mg capsule Take 1 capsule by mouth three times a day as needed for cough. (Patient not taking: Reported on 07/20/2024) albuterol HFA (PROAIR HFA) 90 mcg/actuation inhaler Inhale 2 Puffs as instructed every 6 hours as needed. (Patient not taking: Reported on 08/01/2023) meloxicam (MOBIC) 15 mg tablet (Patient not taking: Reported on 07/10/2022) DULoxetine (CYMBALTA) 60 mg capsule (Patient not taking: Reported on 07/20/2024) escitalopram oxalate (LEXAPRO) 10 mg tablet Take 1 tablet by mouth once daily. (Patient not taking: Reported on 07/10/2022) fluticasone (FLONASE) 50 mcg/actuation nasal spray Use 2 Sprays in each nostril once daily. Rinse mouth after use. (Patient not taking: Reported on 07/02/2023) No family history on file. Social History Tobacco Use Smoking status: Never Smokeless tobacco: Never Vaping Use Vaping status: Never Used Substance Use Topics Alcohol use: Yes Comment: rare Drug use: Never Objective Physical Exam Vitals and nursing note reviewed. Constitutional: General: She is not in acute distress. Appearance: Normal appearance. She is not ill-appearing. HENT: Right Ear: Tympanic membrane, ear canal and external ear normal. Left Ear: Tympanic membrane, ear canal and external ear normal. Nose: Nose normal. Mouth/Throat: Mouth: Mucous membranes are moist. Pharynx: Oropharynx is clear. Uvula midline. No oropharyngeal exudate or posterior oropharyngeal erythema. Cardiovascular: Rate and Rhythm: Normal rate and regular rhythm. Heart sounds: Normal heart sounds. Pulmonary: Effort: Pulmonary effort is normal. No respiratory distress. Breath sounds: Normal breath sounds. No wheezing or rales. Musculoskeletal: Cervical back: Neck supple. Skin: General: Skin is warm and dry. Findings: No erythema or rash. Neurological: Mental Status: She is alert. ASSESSMENT/PLAN: 1. Sore throat - ICD9: 462, ICD10: J02.9 (primary diagnosis) - Group A strep molecular testing negative - Discussed supportive care treatment with fluids, rest and analgesia. - STREP A MOLECULAR (POC) 2. Viral URI - ICD9: 465.9, ICD10: J06.9 - Discussed viral etiology and rationale for treatment. - Symptomatic treatment with prn analgesia - Supportive care with fluids and rest - COVID AND INFLUENZA A/B AND RSV PCR, ROUTINE - Follow-up with your PCP in 3-5 days if symptoms have not improved or sooner if symptoms worsen - Discussed red flags and need for immediate medical evaluation if any occur. - Discussed supportive care treatment with fluids, rest and analgesia. - Discussed expected course of illness Radha Sultana APRN.Radha Vivas APRN.LUIS MIGUEL 07/20/2024 10:17 AM Signed ASSESSMENT/PLAN: 1. Sore throat - ICD9: 462, ICD10: J02.9 (primary diagnosis) - Group A strep molecular testing negative - Discussed supportive care treatment with fluids, rest and analgesia. - STREP A MOLECULAR (POC) 2. Viral URI - ICD9: 465.9, ICD10: J06.9 - Discussed viral etiology and rationale for treatment. - Symptomatic treatment with prn an (more content not included)... Normal [facility] COVID AND INFLUENZA A/B AND RSV PCR, ROUTINEon 07-20-2024 SARS-CoV-2 (COVID-19) RNA IVAN+probe Ql (Unsp spec) SARS-COV-2 (AGENT OF COVID-19) RNA: Not detected INFLUENZA A RNA: Not detected INFLUENZA B RNA: Not detected RESPIRATORY SYNCYTIAL VIRUS (RSV) RNA: Not detected Normal [facility] Comment on above: Performed By: #### C VFLRS #### [facility] CLIA [id number] [address] [place] [address] [place] STREP A MOLECULAR (POC)on Procedural Control Valid [facility] Strep A (POCT) Negative Negative [facility] Absolute lymphocyte countOrd ered By: Andrea Tapia on 10-10-2023 Lymphocytes Auto (Unsp spec) [#/Vol] 3.07 10*3/uL 0.83-4.51 [facility] Automated lymphocyte count a s percentage of total leukocytesOrdered By: Andrea Tapia on 10-10-2023 Lymphocytes/100 WBC Auto (Unsp spec) 35.3 % 19-41 [facility] Basophil percentageOrdered B y: Andrea Tapia on 10-10-2023 Basophils/100 WBC (Bld) 1.0 % 0-1 [facility] Bilirubin [Mass/Vol] 0.30 mg/dL 0.20-1.00 [facility] Comment on above: For patients on eltr ombopag therapy, use of Dimension [place] TBIL is not recommended. Chloride [Moles/Vol] 105 mmol/L 98-107 [facility] Cholesterol [Mass/Vol] 258 mg/dL <200 [facility] Comment on above: <200 mg/dL Desirable 200-240 mg/dL Borderline >240 mg/dL High Risk Eosinophils/100 WBC (Bld) 2.2 % 0-5 [facility] Glucose [Mass/Vol] 102 mg/dL 74-106 [facility] Comment on above: Fasting Glucose resu lt from 100 to 125 mg/dL suggests IMPAIRED HOMEOSTASIS per A.D.A. criteria. Hemoglobin (Bld) [Mass/Vol] 13.6 g/dL 12.0-15.0 [facility] Monocytes/100 WBC (Bld) 7.9 % 0-10 [facility] Neutrophils (Bld) [#/Vol] 4.6 10*3/uL 2.0-7.7 [facility] Neutrophils/100 WBC (Bld) 53.4 % 47-70 [facility] Potassium [Moles/Vol] 3.8 mmol/L 3.5-5.1 [facility] Protein [Mass/Vol] 7.3 g/dL 6.4-8.2 [facility] Sodium [Moles/Vol] 138 mmol/L 136-145 [facility] Triglyceride [Mass/Vol] 402 mg/dL <199 [facility] Comment on above: The drugs N-Acetylcy steine and Metamizole may falsely depress this assay. TRIGLYCERIDE IS GREATER THAN 400 mg/dL. LDL RESULT IS INVALID AND WILL NOT BE REPORTED.Serum Triglycerides Reference Interval Normal <150 mg/dL Borderline high 150 - 199 mg/dL High 200 - 499 mg/dL Very High > or = 500 mg/dL WBC (Bld) [#/Vol] 8.7 10*3/uL 4.4-11.0 [facility] Determination of erythrocyte mean corpuscular volume (MCV)Ordered By: Andrea Tapia on 10-10-2023 MCV (RBC) [Entitic vol] 95.4 fL 81-99 [facility] Erythrocyte distribution wid th ratioOrdered By: Andrea Tapia on 10-10-2023 Erythrocyte distribution width (RBC) [Ratio] 13.4 % 11.6-14.6 [facility] Erythrocyte distribution wid th standard deviationOrdered By: Andrea Tapia on 10-10-2023 Erythrocyte distribution width (RBC) [Entitic vol] 47.6 fL 35.1-43.9 [facility] Hematocrit Auto (Bld) [Volum e fraction]Ordered By: Andrea Tapia on 10-10-2023 Hematocrit (Bld) [Volume fraction] 41.6 % 37-47 [facility] Immature granulocytes/100 WB C Auto (Bld)Ordered By: Andrea Tapia on 10-10-2023 Immature granulocytes/100 WBC (Bld) 0.200 % 0.0-0.9 [facility] Comment on above: IG% - Immature Granu locytes (promyelocytes, myelocytes and metamyelocytes) > 1% indicates that a LEFT SHIFT is Present. Laboratory - Chemistry and C hemistry - challengeOrdered By: Andrea Tapia on 10-10-2023 Albumin/Globulin [Mass ratio] 1.1 {ratio} 0.9-2.4 [facility] ALP [Catalytic activity/Vol] 76 U/L 45-117 [facility] ALT [Catalytic activity/Vol] 45 U/L 13-56 [facility] Cholesterol in HDL [Mass/Vol] 46 mg/dL >40 [facility] Comment on above: The drugs N-Acetylcy steine and Metamizole may falsely depress this assay. Reference Range HDL <40 mg/dL Low HDL Cholesterol HDL >or= 60 mg/dL High HDL Cholesterol CO2 [Moles/Vol] 27.0 mmol/L 21.0-32.0 [facility] Globulin (S) [Mass/Vol] 3.4 g/dL 2.2-4.2 [facility] Urea nitrogen/Creatinine [Mass ratio] 29.8 mg/mg 10-20 [facility] - Hematology and Cell countsOrdered By: Andrea Tapia on 10-10-2023 MCH (RBC) [Entitic mass] 31.2 pg 27.0-32.0 [facility] MCHC (RBC) [Mass/Vol] 32.7 g/dL 32-36 [facility] Nucleated RBC/100 WBC (Bld) [Ratio] 0 % 0-5 [facility] Platelet mean volume (Bld) [Entitic vol] 10.1 fL 6.2-12.0 [facility] Platelets (Bld) [#/Vol] 423 10*3/uL 150-450 [facility] No Panel InformationOrdered By: Andrea Tapia on 10-10-2023 Estimated GFR (MDRD) Amer 99 mL/min >60 [facility] Comment on above: GFR Calc Estimated GFR (MDRD) Non-Af Amer 82 mL/min >60 [facility] Comment on above: Non- GFR Calc LDL Cholesterol TNP [facility] Comment on above: Test not performed Vitamin D 25-Hydroxy 34.0 ng/mL [facility] Comment on above: Vitamin D 25(OH) Sta tus Range Deficiency <20 ng/mL (50nmol/L) Insufficiency 20 - 30 ng/mL (50 - 75 nmol/L) Sufficiency 30 - 100 ng/mL (75 - 250 nmol/L) Toxicity >100 ng/mL (>250 nmol/L) VLDL Cholesterol TNP [facility] Comment on above: Test not performed RBC Auto (Bld) [#/Vol]Ordere d By: Andrea Tapia on 10-10-2023 RBC (Bld) [#/Vol] 4.36 10*6/uL 4.2-5.4 [facility] Serum or plasma calcium case urement (mass/volume)Ordered By: Andrea Tapia on 10-10-2023 Calcium [Mass/Vol] 8.7 mg/dL 8.5-10.1 [facility] Serum or plasma creatinine m easurement (mass/volume)Ordered By: Andrea Tapia on 10-10-2023 Creatinine [Mass/Vol] 0.77 mg/dL 0.55-1.02 [facility] Comment on above: The validity of the calculated GFR & GFRAA in patients over 70 years has not been determined. Clinical correlation is essential. Serum or plasma thyroid stim ulating hormone (TSH) measurement (units/volume)Ordered By: Andrea Tapia on 10-10-2023 TSH Qn 1.30 uIU/mL 0.358-3.74 [facility] Serum or plasma urea nitroge n measurement (mass/volume)Ordered By: Andrea Tapia on 10-10-2023 Urea nitrogen [Mass/Vol] 23 mg/dL 7-18 [facility] Thin prep Papanicolaou smear with manual screeningOrdered By: Andrea Tapia on 10-10-2023 Thin prep Papanicolaou smear with manual screening 3.9 g/dL 3.2-5.0 [facility] Thin prep Papanicolaou smear with manual screening 25 U/L 15-37 [facility] Thin prep Papanicolaou smear with manual screening 6 5-15 [facility] Thin prep Papanicolaou smear with manual screening 0.84 ng/dL 0.76-1.46 [facility] Whole blood hemoglobin A1c/t otal hemoglobin ratio (mass fraction)Ordered By: Andrea Tapia on 10-10-2023 HbA1c (Bld) [Mass fraction] 5.9 % 3.8-5.6 [facility] Comment on above: Normal < 5.7 % Predi abetic 5.7 - 6.4 % Diabetic >or= 6.5 % Please note range changes. Mary Kate [facility] TOMEKA ALEXANDRE ([id number]) 1965 F Date Time Provider Department 08/04/23 PIA HENSON [facility] During your visit today, we recorded the following information about you: Pia Henson PA 08/04/2023 7:17 AM Signed Please let patient know she tested positive for influenza A. She is out of the window for treatment with Tamiflu. Supportive measures at home. Jeanine Garsia MA 08/04/2023 9:21 AM Signed Left VM instructing patient to return call to receive results. MOISES Foreman Sandra, LPN 08/04/2023 5:42 PM Signed Still unable to reach patient but she did review her results on my chart.Denise Blackmon LPN Allergies As of Date: 08/04/2023 Noted Allergy Reaction MULTIVITAMIN ADDITIVE 04/10/2012 2 - Rash Comments: Took a multivitamin for energy which had lots of B vitamins. Broke out in a rash after 2 days. Date Reviewed: 08/03/2023 Reviewed by: Regis Flowers APRN.PROFESSOR OF FOOD BIOCHEMISTRY - Fully Assessed Reason for Visit: Results [95] Prescriptions as of 08/04/2023 - guaiFENesin (MUCINEX) 600 mg 12 hr tablet Take 1 tablet by mouth two times a day as needed for cold/allergy symptoms (cough) for up to 7 days. - doxycycline (VIBRA-TABS) 100 mg tablet Take 1 tablet by mouth two times a day for 7 days. - apremilast (OTEZLA) 30 mg tablet Take 30 mg by mouth two times a day. - benzonatate (TESSALON PERLES) 100 mg capsule Take 1 capsule by mouth three times a day as needed for cough. - albuterol HFA (PROAIR HFA) 90 mcg/actuation inhaler Inhale 2 Puffs as instructed every 6 hours as needed. - rOPINIRole (REQUIP) 0.5 mg tablet - meloxicam (MOBIC) 15 mg tablet - DULoxetine (CYMBALTA) 60 mg capsule - Lactobacillus acidophilus (PROBIOTIC ORAL) Take by mouth. - escitalopram oxalate (LEXAPRO) 10 mg tablet Take 1 tablet by mouth once daily. - fluticasone (FLONASE) 50 mcg/actuation nasal spray Use 2 Sprays in each nostril once daily. Rinse mouth after use. Problem List As Of Date 08/04/2023 Noted Resolved Abnormal thyroid blood test [R79.89] 04/10/2012 Fatigue [R53.83] 04/10/2012 Encounter Status:Closed by DENISE BLACKMON on 08/04/23 Normal [facility] COVID & INFLUENZA A/B & RSV NAAT, ROUTINEon 08-04-2023 FLUAV RNA IVAN+probe Ql (Unsp spec) Detected Abnormal Not Detected [facility] FLUBV RNA IVAN+probe Ql (Unsp spec) Not detected Not Detected [facility] RSV A RNA IVAN+probe Ql (Unsp spec) Not detected Not Detected [facility] SARS-CoV-2 (COVID-19) RNA IVAN+probe Ql (Resp) Not detected See comment Zakiya hooper [facility] CNOVon 08-03-2023 CNOV Office Visit (UCWSTR ) TOMEKA ALEXANDRE ([id number]) 1965 F Date Time Provider Department 2/1/24 2:30 PM [facility] During your visit today, we recorded the following information about you: Temperature Pulse Respiration Blood pressure 100.7 degrees 92/minute 18/minute 120/74 Weight 76.2 kg LionelRegisAPRN.PROFESSOR OF FOOD BIOCHEMISTRY 08/03/2023 2:51 PM Signed Subjective HPI Nontoxic-appearing female presents urgent care chief complaint of cough and fever. Duration of symptoms 4 days. Associated symptoms fever body aches chills nasal congestion cough. Was seen here on Monday diagnosed with acute cough negative chest x-ray negative vocbu-in-sobw flu. States symptoms have stayed persistent. Most bothersome symptom today is cough body aches and fever. No known sick contacts. Has been using OTC medications have helped some. Denies any productive cough chest pain shortness of breath pleuritic pain hemoptysis nausea vomiting abdominal pain change in bowel or bladder meds. Past medical history prescription medication use allergies reviewed. Risk factors removal spleen. .Patient presents with: Flu Like Symptoms: Fever, body aches, sinus drainage, cough, x 4 days PAST MEDICAL HISTORY Diagnosis Date NEGATIVE MEDICAL HISTORY PAST SURGICAL HISTORY Procedure Laterality Date LIGATE FALLOPIAN TUBE 1998 REDUCTION OF LARGE BREAST 2017 REMOVAL OF SPLEEN TOTAL ALLERGIES Multivitamin Additive MEDICATIONS apremilast (OTEZLA) 30 mg tablet Take 30 mg by mouth two times a day. benzonatate (TESSALON PERLES) 100 mg capsule Take 1 capsule by mouth three times a day as needed for cough. rOPINIRole (REQUIP) 0.5 mg tablet DULoxetine (CYMBALTA) 60 mg capsule Lactobacillus acidophilus (PROBIOTIC ORAL) Take by mouth. albuterol HFA (PROAIR HFA) 90 mcg/actuation inhaler Inhale 2 Puffs as instructed every 6 hours as needed. (Patient not taking: Reported on 08/01/2023) meloxicam (MOBIC) 15 mg tablet (Patient not taking: Reported on 07/10/2022) escitalopram oxalate (LEXAPRO) 10 mg tablet Take 1 tablet by mouth once daily. (Patient not taking: Reported on 07/10/2022) fluticasone (FLONASE) 50 mcg/actuation nasal spray Use 2 Sprays in each nostril once daily. Rinse mouth after use. (Patient not taking: Reported on 07/02/2023) History reviewed. No pertinent family history. Social History Tobacco Use Smoking status: Never Smokeless tobacco: Never Vaping Use Vaping Use: Never used Substance Use Topics Alcohol use: Yes Comment: rare Drug use: Never BP 120/74 Pulse 92 Temp (!) 38.2 ?C (100.7 ?F) Resp 18 Wt 76.2 kg (168 lb) LMP 04/15/2011 SpO2 96% BMI 27.12 kg/m? Review of Systems Constitutional: Positive for chills, fever and malaise/fatigue. HENT: Positive for congestion and sore throat. Negative for ear discharge, ear pain and sinus pain. Eyes: Negative for blurred vision, pain, discharge and redness. Respiratory: Positive for cough. Negative for hemoptysis, sputum production, shortness of breath, wheezing and stridor. Cardiovascular: Negative for chest pain. Gastrointestinal: Negative for abdominal pain, diarrhea, nausea and vomiting. Musculoskeletal: Positive for myalgias. Skin: Negative for itching and rash. Neurological: Negative for dizziness and headaches. Objective Physical Exam Constitutional: General: She is not in acute distress. Appearance: She is not diaphoretic. HENT: Head: Normocephalic. Jaw: No trismus, tenderness, swelling or pain on movement. Right Ear: Tympanic membrane, ear canal and external ear normal. Left Ear: Tympanic membrane, ear canal and external ear normal. Nose: Congestion present. Mouth/Throat: Mouth: Mucous membranes are moist. Pharynx: Oropharynx is clear. Uvula midline. No pharyngeal swelling, oropharyngeal exudate, posterior oropharyngeal erythema or uvula swelling. Eyes: Conjunctiva/sclera: Conjunctivae normal. Pupils: Pupils are equal, round, and reactive to light. Cardiovascular: Rate and Rhythm: Normal rate and regular rhythm. Heart sounds: Normal heart sounds. Pulmonary: Effort: Pulmonary effort is normal. No tachypnea, accessory muscle usage or respiratory distress. Breath sounds: Normal breath sounds. No stridor. No wheezing, rhonchi or rales. Abdominal: General: There is no distension. Palpations: Abdomen is soft. Tenderness: There is no abdominal tenderness. There is no guarding or rebound. Musculoskeletal: Cervical back: Normal range of motion and neck supple. No edema, erythema, rigidity or tenderness. No pain with movement. Normal range of motion. Lymphadenopathy: Cervical: No cervical adenopathy. Skin: General: Skin is warm and dry. Neurological: Mental Status: She is alert and oriented to person, place, and time. ASSESSMENT/PLAN: 1. Viral illness - ICD9: 079.99, ICD10: B34.9 (primary diagn (more content not included)... Normal [facility] COVID AND INFLUENZA A/B AND RSV NAAT, ROUTINEon 08-03-2023 SARS-CoV-2 (COVID-19) RNA IVAN+probe Ql (Unsp spec) COVID 19 RESULT: Not detected The method used is RT-PCR or an equivalent NAAT method. Reference Range (the expected result in uninfected individuals): Not detected INFLUENZA A PCR: Detected INFLUENZA B PCR: Not detected RSV PCR: Not detected Abnormal [facility] Comment on above: Performed By: #### C VFLRS #### [facility] CLIA [id number] [address] [place] [address] OF [facility] CNOVon 08-01-2023 CNOV Office Visit (WSTR ) TOMEKA ALEXANDRE ([id number]) 1965 F Date Time Provider Department 08/01/23 9:15 AM MARYA MCDERMOTT [facility] During your visit today, we recorded the following information about you: Temperature Pulse Respiration Blood pressure 99.6 degrees 118/minute 21/minute 156/90 Weight 77.1 kg Marya Mcdermott APRN.PROFESSOR OF FOOD BIOCHEMISTRY 08/01/2023 9:56 AM Signed This note was created using [employer]. Subjective Tomeka Alexandre is a 57 year old female. 57 year old female with psoriasis, RLS, depression presents for illness. Acute onset yesterday Upon awakening + headache + cough +chest tightness +winded with activity +body aches +fatigue +chills Denies fever Denies ear, nose, or throat Denies tobacco usage Mucinex @ 0600 Endorses that she was treated for a pneumonia 07/02/23. The history is provided by the patient. No retail office manager was used. Cough This is a new problem. The current episode started yesterday. The problem occurs constantly. The problem has been gradually worsening. The cough is Non-productive. There has been no fever. Associated symptoms include chills, headaches and myalgias. Pertinent negatives include no chest pain, no sweats, no weight loss, no ear congestion, no ear pain, no rhinorrhea, no sore throat, no shortness of breath, no wheezing and no eye redness. She has tried decongestants for the symptoms. The treatment provided no relief. She is not a smoker. Her past medical history does not include bronchitis, pneumonia, bronchiectasis, COPD, emphysema or asthma. PAST MEDICAL HISTORY Diagnosis Date NEGATIVE MEDICAL HISTORY PAST SURGICAL HISTORY Procedure Laterality Date LIGATE FALLOPIAN TUBE 1998 REDUCTION OF LARGE BREAST 2017 REMOVAL OF SPLEEN TOTAL ALLERGIES Multivitamin Additive MEDICATIONS apremilast (OTEZLA) 30 mg tablet Take 30 mg by mouth two times a day. rOPINIRole (REQUIP) 0.5 mg tablet DULoxetine (CYMBALTA) 60 mg capsule Lactobacillus acidophilus (PROBIOTIC ORAL) Take by mouth. benzonatate (TESSALON PERLES) 100 mg capsule Take 1 capsule by mouth three times a day as needed for cough. albuterol HFA (PROAIR HFA) 90 mcg/actuation inhaler Inhale 2 Puffs as instructed every 6 hours as needed. (Patient not taking: Reported on 08/01/2023) meloxicam (MOBIC) 15 mg tablet (Patient not taking: Reported on 07/10/2022) escitalopram oxalate (LEXAPRO) 10 mg tablet Take 1 tablet by mouth once daily. (Patient not taking: Reported on 07/10/2022) fluticasone (FLONASE) 50 mcg/actuation nasal spray Use 2 Sprays in each nostril once daily. Rinse mouth after use. (Patient not taking: Reported on 07/02/2023) No family history on file. Social History Tobacco Use Smoking status: Never Smokeless tobacco: Never Vaping Use Vaping Use: Never used Substance Use Topics Alcohol use: Yes Comment: rare Drug use: Never Review of Systems Constitutional: Positive for chills and fatigue. Negative for weight loss. HENT: Positive for congestion. Negative for ear pain, rhinorrhea and sore throat. Eyes: Negative for discharge, redness and itching. Respiratory: Positive for cough. Negative for apnea, chest tightness, shortness of breath and wheezing. Cardiovascular: Negative for chest pain. Gastrointestinal: Negative for abdominal pain, diarrhea, nausea and vomiting. Musculoskeletal: Positive for myalgias. Skin: Negative for color change, pallor, rash and wound. Allergic/Immunologic: Negative for environmental allergies, food allergies and immunocompromised state. Neurological: Positive for headaches. Negative for dizziness and facial asymmetry. Hematological: Negative for adenopathy. Does not bruise/bleed easily. Psychiatric/Behaviora l: Negative for agitation and behavioral problems. Objective BP 156/90 Pulse 118 Temp 37.6 ?C (99.6 ?F) Resp 21 Wt 77.1 kg (170 lb) LMP 04/15/2011 SpO2 96% BMI 27.44 kg/m? Physical Exam Vitals and nursing note reviewed. Constitutional: General: She is not in acute distress. Appearance: Normal appearance. She is normal weight. She is not ill-appearing, toxic-appearing or diaphoretic. HENT: Head: Normocephalic and atraumatic. Right Ear: Ear canal and external ear normal. Left Ear: Ear canal and external ear normal. Nose: Congestion present. No rhinorrhea. Mouth/Throat: Mouth: Mucous membranes are moist. Pharynx: Posterior oropharyngeal erythema present. No oropharyngeal exudate. Eyes: General: Right eye: No discharge. Left eye: No discharge. Extraocular Movements: Extraocular movements intact. Conjunctiva/sclera: Conjunctivae normal. Pupils: Pupils are equal, round, and reactive to light. Cardiovascular: Rate and Rhythm: Normal rate and regular rhythm. Pulses: Normal pulses. Heart sounds: Normal heart sounds. No murmur heard. No friction rub. Pulmonary: Effort: Pulmonary e (more content not included)... Normal [facility] XR CHEST 2V FRONTAL/LATon XR CHEST 2V FRONTAL/LAT * * *Final Repor t* * * DATE OF EXAM: Aug 01 2023 9:39AM WOX [id number] - XR CHEST 2V FRONTAL/LAT / PROCEDURE REASON: Acute cough * * * * Physician Interpretation * * * * EXAMINATION: CHEST RADIOGRAPH (2 VIEW FRONTAL and LATERAL) CLINICAL HISTORY: Acute cough MQ: XC2_6 EXAM DATE/TIME: 08/01/2023 9:39 AM COMPARISON: No relevant prior studies available. RESULT: Lines, tubes, and devices: None. Lungs and pleura: No consolidation. No lung mass. No pleural effusion. No pneumothorax. Cardiomediastinal silhouette: Normal cardiomediastinal silhouette. Bones and soft tissues: Unremarkable. IMPRESSION: No acute radiographic abnormality. Timber Selector: PSCB Transcribe Date/Time: Aug 01 2023 9:41A Dictated by : TARIQ PEARL MD This examination was interpreted and the report reviewed and electronically signed by: TARIQ PEARL MD on Aug 01 2023 9:43AM EST [id number] Normal [facility] XR Chest PA and Lateralon IMPRESSION: No acute radiographic abnormality. Timber Selector: PSCB Transcribe Date/Time: Aug 01 2023 9:41A Dictated by : TARIQ PEARL MD This examination was interpreted and the report reviewed and electronically signed by: TARIQ PEARL MD on Aug 01 2023 9:43AM EST DIVISION OF RADIOLOGY * * *Final Report* * * DATE OF EXAM: Aug 01 2023 9:39AM WOX [id number] - XR CHEST 2V FRONTAL/LAT / PROCEDURE REASON: Acute cough * * * * Physician Interpretation * * * * EXAMINATION: CHEST RADIOGRAPH (2 VIEW FRONTAL & LATERAL) CLINICAL HISTORY: Acute cough MQ: XC2_6 EXAM DATE/TIME: 08/01/2023 9:39 AM COMPARISON: No relevant prior studies available. RESULT: Lines, tubes, and devices: None. Lungs and pleura: No consolidation. No lung mass. No pleural effusion. No pneumothorax. Cardiomediastinal silhouette: Normal cardiomediastinal silhouette. Bones and soft tissues: Unremarkable. DIVISION OF RADIOLOGY Provider, [facility] - 08/01/2023 * * *Final Report* * * DATE OF EXAM: Aug 01 2023 9:39AM WOX [id number] - XR CHEST 2V FRONTAL/LAT / PROCEDURE REASON: Acute cough * * * * Physician Interpretation * * * * EXAMINATION: CHEST RADIOGRAPH (2 VIEW FRONTAL & LATERAL) CLINICAL HISTORY: Acute cough MQ: XC2_6 EXAM DATE/TIME: 08/01/2023 9:39 AM COMPARISON: No relevant prior studies available. RESULT: Lines, tubes, and devices: None. Lungs and pleura: No consolidation. No lung mass. No pleural effusion. No pneumothorax. Cardiomediastinal silhouette: Normal cardiomediastinal silhouette. Bones and soft tissues: Unremarkable. IMPRESSION IMPRESSION: No acute radiographic abnormality. Timber Selector: PSCB Transcribe Date/Time: Aug 01 2023 9:41A Dictated by : TARIQ PEARL MD This examination was interpreted and the report reviewed and electronically signed by: TARIQ PEARL MD on Aug 01 2023 9:43AM EST [facility] Radiology Study observation (narrative) Zakiya hooper [facility] XR Chest PA and LateralOrder ed By: [facility] Provider on 08-01-2023 [facility] STREP A MOLECULAR (POC)on Procedural Control Valid [facility] Strep A (POCT) Negative Negative [facility] Basophil percentageOrdered B y: Andrea Tapia on 08-26-2022 Bilirubin [Mass/Vol] 0.40 mg/dL 0.20-1.00 [facility] Comment on above: For patients on eltr ombopag therapy, use of Dimension [place] TBIL is not recommended. Chloride [Moles/Vol] 105 mmol/L 98-107 [facility] Cholesterol [Mass/Vol] 202 mg/dL <200 [facility] Comment on above: <200 mg/dL Desirable 200-240 mg/dL Borderline >240 mg/dL High Risk Glucose [Mass/Vol] 112 mg/dL 74-106 [facility] Comment on above: Fasting Glucose resu lt from 100 to 125 mg/dL suggests IMPAIRED HOMEOSTASIS per A.D.A. criteria. Potassium [Moles/Vol] 4.3 mmol/L 3.5-5.1 [facility] Protein [Mass/Vol] 7.4 g/dL 6.4-8.2 [facility] Sodium [Moles/Vol] 139 mmol/L 136-145 [facility] Triglyceride [Mass/Vol] 93 mg/dL <199 [facility] Comment on above: The drugs N-Acetylcy steine and Metamizole may falsely depress this assay.Serum Triglycerides Reference Interval Normal <150 mg/dL Borderline high 150 - 199 mg/dL High 200 - 499 mg/dL Very High > or = 500 mg/dL WBC (Bld) [#/Vol] 8.2 10*3/uL 4.4-11.0 [facility] Blood erythrocytes count (nu mber/volume)Ordered By: Andrea Tapia on 08-26-2022 RBC (Bld) [#/Vol] 4.56 10*6/uL 4.2-5.4 [facility] Blood hemoglobin measurement (mass/volume)Ordered By: Andrea Tapia on 08-26-2022 Hemoglobin (Bld) [Mass/Vol] 14.1 g/dL 12.0-15.0 [facility] Blood platelet mean volumeOr dered By: Andrea Tapia on 08-26-2022 Platelet mean volume (Bld) [Entitic vol] 10.4 fL 6.2-12.0 [facility] Determination of erythrocyte mean corpuscular volume (MCV)Ordered By: Andrea Tapia on 08-26-2022 MCV (RBC) [Entitic vol] 97.1 fL 81-99 [facility] Hematocrit Auto (Bld) [Volum e fraction]Ordered By: Andrea Tapia on 08-26-2022 Hematocrit (Bld) [Volume fraction] 44.3 % 37-47 [facility] Laboratory - Chemistry and C hemistry - challengeOrdered By: Andrea Tapia on 08-26-2022 ALP [Catalytic activity/Vol] 90 U/L 45-117 [facility] ALT [Catalytic activity/Vol] 26 U/L 13-56 [facility] CO2 [Moles/Vol] 28.0 mmol/L 21.0-32.0 [facility] Globulin (S) [Mass/Vol] 3.6 g/dL 2.2-4.2 [facility] Urea nitrogen/Creatinine [Mass ratio] 34.4 mg/mg 10-20 [facility] Laboratory - Hematology and Cell countsOrdered By: Andrea Tapia on 08-26-2022 Erythrocyte distribution width (RBC) [Entitic vol] 46.5 fL 35.1-43.9 [facility] Erythrocyte distribution width (RBC) [Ratio] 13.0 % 11.6-14.6 [facility] MCH (RBC) [Entitic mass] 30.9 pg 27.0-32.0 [facility] MCHC Auto (RBC) [Mass/Vol]Or dered By: Andrea Tapia on 08-26-2022 MCHC (RBC) [Mass/Vol] 31.8 g/dL 32-36 [facility] No Panel InformationOrdered By: Andrea Tapia on 08-26-2022 Estimated GFR (MDRD) Amer 112 mL/min >60 [facility] Comment on above: GFR Calc Estimated GFR (MDRD) Non-Af Amer 92 mL/min >60 [facility] Comment on above: Non- GFR Calc Thyroid Stimulating Hormone (TSH) 1.23 uIU/mL 0.358-3.74 [facility] Platelets bldOrdered By: Andrea Tapia on 08-26-2022 Platelets (Bld) [#/Vol] 508 10*3/uL 150-450 [facility] Serum or plasma albumin case urement (mass/volume)Ordered By: nAdrea Tapia on 08-26-2022 Albumin [Mass/Vol] 3.8 g/dL 3.2-5.0 [facility] Serum or plasma albumin/glob ulin mass ratioOrdered By: Andrea Tapia on 08-26-2022 Albumin/Globulin [Mass ratio] 1.1 {ratio} 0.9-2.4 [facility] Serum or plasma calcium case urement (mass/volume)Ordered By: Andrea Tapia on 08-26-2022 Calcium [Mass/Vol] 9.2 mg/dL 8.5-10.1 [facility] Serum or plasma cholesterol in HDL measurement (mass/volume)Ordered By: Andrea Tapia on 08-26-2022 Cholesterol in HDL [Mass/Vol] 52 mg/dL >40 [facility] Comment on above: The drugs N-Acetylcy steine and Metamizole may falsely depress this assay. Reference Range HDL <40 mg/dL Low HDL Cholesterol HDL >or= 60 mg/dL High HDL Cholesterol Serum or plasma cholesterol in VLDL measurement (mass/volume)Ordered By: Andrea Tapia on 08-26-2022 Cholesterol in VLDL [Mass/Vol] 19 mg/dL 5-40 [facility] Serum or plasma creatinine m easurement (mass/volume)Ordered By: Andrea Tapia on 08-26-2022 Creatinine [Mass/Vol] 0.70 mg/dL 0.55-1.02 [facility] Comment on above: The validity of the calculated GFR & GFRAA in patients over 70 years has not been determined. Clinical correlation is essential. Serum or plasma low density lipoprotein (LDL) cholesterol measurement (mass/volume)Ordered By: Andrea Tapia on 08-26-2022 Cholesterol in LDL [Mass/Vol] 131 mg/dL 0-130 [facility] Serum or plasma urea nitroge n measurement (mass/volume)Ordered By: Andrea Tapia on 08-26-2022 Urea nitrogen [Mass/Vol] 24 mg/dL 7-18 [facility] Thin prep Papanicolaou smear with manual screeningOrdered By: Andrea Tapia on 08-26-2022 Thin prep Papanicolaou smear with manual screening 17 U/L 15-37 [facility] Thin prep Papanicolaou smear with manual screening 6 5-15 [facility] STREP A MOLECULAR (POC)on Procedural Control Valid [facility] Strep A (POCT) Negative Negative [facility] Vital Signs Date Time Vital Sign Value Performing Clinician Facility 02-06-2025 13:17-0400 Body height 167.64 cm Andrea Tapia PATIENT CARE ASSOCIATE-C Work Phone: [facility] 02-06-2025 13:17-0400 Body mass index (BMI) [Ratio] 28.1 kg/m2 Andrea Tapia PATIENT CARE ASSOCIATE-C Work Phone: [facility] 02-06-2025 13:17-0400 Body weight 79.18 kg Andrea Tapia PATIENT CARE ASSOCIATE-C Work Phone: [facility] 02-06-2025 13:17-0400 Diastolic blood pressure 76 mm[Hg] Andrea Tapia PATIENT CARE ASSOCIATE-C Work Phone: [facility] 02-06-2025 13:17-0400 Heart rate 72 /min Andrea Sterlingpkins PATIENT CARE ASSOCIATE-C Work Phone: [facility] 02-06-2025 13:17-0400 Systolic blood pressure 142 mm[Hg] Andrea Tapia PATIENT CARE ASSOCIATE-C Work Phone: [facility] 07-20-2024 09:56-0500 Body mass index (BMI) [Ratio] 26.69 kg/m2 Radha Praisler-Wood PUBLIC HEALTH MICROBIOLOGIST.PROFESSOR OF FOOD BIOCHEMISTRY Work Phone: [facility] 07-20-2024 09:56-0500 Body temperature 99.39 [degF] Radha Praisler-Wood PUBLIC HEALTH MICROBIOLOGIST.PROFESSOR OF FOOD BIOCHEMISTRY Work Phone: [facility] 07-20-2024 09:56-0500 Body weight 75 kg Radha Praisler-Wood PUBLIC HEALTH MICROBIOLOGIST.PROFESSOR OF FOOD BIOCHEMISTRY Work Phone: [facility] 07-20-2024 09:56-0500 Diastolic blood pressure 71 mm[Hg] Radha Praisler-Wood PUBLIC HEALTH MICROBIOLOGIST.PROFESSOR OF FOOD BIOCHEMISTRY Work Phone: [facility] 07-20-2024 09:56-0500 Heart rate 93 /min Radha Praisler-Wood PUBLIC HEALTH MICROBIOLOGIST.PROFESSOR OF FOOD BIOCHEMISTRY Work Phone: [facility] 07-20-2024 09:56-0500 Respiratory rate 18 /min Radha Praisler-Wood PUBLIC HEALTH MICROBIOLOGIST.PROFESSOR OF FOOD BIOCHEMISTRY Work Phone: [facility] 07-20-2024 09:56-0500 SaO2% (BldA) [Mass fraction] 96 % Radha Praisler-Wood PUBLIC HEALTH MICROBIOLOGIST.PROFESSOR OF FOOD BIOCHEMISTRY Work Phone: [facility] 07-20-2024 09:56-0500 Systolic blood pressure 110 mm[Hg] Radha Praisler-Wood PUBLIC HEALTH MICROBIOLOGIST.PROFESSOR OF FOOD BIOCHEMISTRY Work Phone: [facility] 08-03-2023 14:24-0500 Body temperature 100.71 [degF] Regis Flowers PUBLIC HEALTH MICROBIOLOGIST.PROFESSOR OF FOOD BIOCHEMISTRY Work Phone: [facility] 08-03-2023 14:24-0500 Body weight 76.2 kg Regis Flowers PUBLIC HEALTH MICROBIOLOGIST.PROFESSOR OF FOOD BIOCHEMISTRY Work Phone: [facility] 08-03-2023 14:24-0500 Diastolic blood pressure 74 mm[Hg] [facility] PUBLIC HEALTH MICROBIOLOGIST.PROFESSOR OF FOOD BIOCHEMISTRY Work Phone: [facility] 08-03-2023 14:24-0500 Heart rate 92 /min [facility] PUBLIC HEALTH MICROBIOLOGIST.PROFESSOR OF FOOD BIOCHEMISTRY Work Phone: [facility] 08-03-2023 14:24-0500 Respiratory rate 18 /min [facility] PUBLIC HEALTH MICROBIOLOGIST.PROFESSOR OF FOOD BIOCHEMISTRY Work Phone: [facility] 08-03-2023 14:24-0500 SaO2% (BldA) [Mass fraction] 96 % [facility] PUBLIC HEALTH MICROBIOLOGIST.PROFESSOR OF FOOD BIOCHEMISTRY Work Phone: [facility] 08-03-2023 14:24-0500 Systolic blood pressure 120 mm[Hg] [facility] PUBLIC HEALTH MICROBIOLOGIST.PROFESSOR OF FOOD BIOCHEMISTRY Work Phone: [facility] 07-02-2023 09:19-0500 Body temperature 98.01 [degF] Polina Athy PA-C Work Phone: [facility] 07-02-2023 09:19-0500 Body weight 78.93 kg Polina Athy PA-C Work Phone: [facility] 07-02-2023 09:19-0500 Diastolic blood pressure 80 mm[Hg] Polina Athy PA-C Work Phone: [facility] 07-02-2023 09:19-0500 Heart rate 84 /min Polina Athy PA-C Work Phone: [facility] 07-02-2023 09:19-0500 Respiratory rate 16 /min Polina Athy PA-C Work Phone: [facility] 07-02-2023 09:19-0500 SaO2% (BldA) [Mass fraction] 94 % Polina Athy PA-C Work Phone: [facility] 07-02-2023 09:19-0500 Systolic blood pressure 126 mm[Hg] Polina Athy PA-C Work Phone: [facility] 03-15-2023 07:26-0400 Body temperature 99.5 [degF] [facility] PUBLIC HEALTH MICROBIOLOGIST.PROFESSOR OF FOOD BIOCHEMISTRY Work Phone: [facility] 03-15-2023 07:26-0400 Body weight 77.11 kg [facility] PUBLIC HEALTH MICROBIOLOGIST.PROFESSOR OF FOOD BIOCHEMISTRY Work Phone: [facility] 03-15-2023 07:26-0400 Diastolic blood pressure 80 mm[Hg] [facility] PUBLIC HEALTH MICROBIOLOGIST.PROFESSOR OF FOOD BIOCHEMISTRY Work Phone: [facility] 03-15-2023 07:26-0400 Heart rate 106 /min [facility] PUBLIC HEALTH MICROBIOLOGIST.PROFESSOR OF FOOD BIOCHEMISTRY Work Phone: [facility] 03-15-2023 07:26-0400 Respiratory rate 16 /min [facility] PUBLIC HEALTH MICROBIOLOGIST.PROFESSOR OF FOOD BIOCHEMISTRY Work Phone: [facility] 03-15-2023 07:26-0400 SaO2% (BldA) [Mass fraction] 98 % [facility] PUBLIC HEALTH MICROBIOLOGIST.PROFESSOR OF FOOD BIOCHEMISTRY Work Phone: [facility] 03-15-2023 07:26-0400 Systolic blood pressure 122 mm[Hg] [facility] PUBLIC HEALTH MICROBIOLOGIST.PROFESSOR OF FOOD BIOCHEMISTRY Work Phone: [facility] 07-10-2022 14:54-0500 Body temperature 99.7 [degF] Polina Athy PA-C Work Phone: [facility] 07-10-2022 14:54-0500 Body weight 76.66 kg Polina Athy PA-C Work Phone: [facility] 07-10-2022 14:54-0500 Diastolic blood pressure 86 mm[Hg] Polina Athy PA-C Work Phone: [facility] 07-10-2022 14:54-0500 Heart rate 93 /min Polina Athy PA-C Work Phone: [facility] 07-10-2022 14:54-0500 Respiratory rate 16 /min Polina Athy PA-C Work Phone: [facility] 07-10-2022 14:54-0500 SaO2% (BldA) [Mass fraction] 97 % Polina Stone PA-C Work Phone: [facility] 07-10-2022 14:54-0500 Systolic blood pressure 114 mm[Hg] Polina Stone PA-C Work Phone: [facility] Encounters Encounter Date Encounter Type Care Provider Facility Start: 02-28-2025 ambulatory Tari Pan lity:[facility] Start: 02-06-2025 End: 02-06-2025 Patient encounter procedure Monet Villalobos PATIENT CARE ASSOCIATE-C -[facility] Work Phone: Start: 02-06-2025 End: 02-06-2025 ambulatory Andrea Tapia PATIENT CARE ASSOCIATE-C Work Phone: -[facility] Start: 08-21-2024 End: 08-21-2024 ambulatory Monet Villalobos [place] Start: 08-07-2024 Encounter for gynecological examination (general) (routine) without abnormal findings Salena Robins [facility] Start: 08-07-2024 End: 08-07-2024 ambulatory Andrea Tapia PATIENT CARE ASSOCIATE [place] Start: 08-07-2024 End: 08-07-2024 ambulatory Andrea Tapia PATIENT CARE ASSOCIATE Facility:[facility] Start: 07-21-2024 End: 07-22-2024 Telephone encounter Marya Mcdermott APRN.PROFESSOR OF FOOD BIOCHEMISTRY Work Phone: [facility] Comment on above: Results Start: 07-21-2024 End: 07-21-2024 ambulatory Robi Cox PATIENT CARE ASSOCIATE Facility[place] Start: 07-20-2024 End: 07-20-2024 ambulatory ANDREA TAPIA Facility:[facility] Start: 07-20-2024 End: 07-20-2024 Patient encounter procedure Radha Sultana APRN.CNP Work Phone: [facility] Comment on above: Sore throat (Primary Dx); Viral URI Start: 03-13-2024 ambulatory Monet Vilallobos Facility :[facility] Start: 10-10-2023 End: 10-10-2023 ambulatory [facility] Work Phone: Start: 10-10-2023 End: 10-10-2023 Patient encounter procedure [facility]Labor[facility] Work Phone: Start: 08-04-2023 Telephone encounter Pia SLAUGHTER Work Phone: [facility] Comment on above: Results Start: 08-03-2023 End: 08-03-2023 ambulatory ANDREA STERLINGPKINS Facility:[facility] Start: 08-03-2023 End: 08-03-2023 Office outpatient visit 25 minutes Regis Flowers APRN.PROFESSOR OF FOOD BIOCHEMISTRY Work Phone: [facility] Comment on above: Viral illness (Prima ry Dx); Fever, unspecified fever cause Start: 08-01-2023 End: 08-01-2023 Subsequent hospital visit by physician Xr [facility] Work Phone: Radiology Comment on above: Acute cough [R05.1] Start: 08-01-2023 End: 08-01-2023 ambulatory ANDREA STERLINGPKINS Facility:[facility] Start: 07-02-2023 End: 07-02-2023 Patient encounter procedure Polina Stone PA-C Work Phone: [facility] Comment on above: Lower resp. tract in fection (Primary Dx) Start: 03-15-2023 End: 03-15-2023 Office outpatient visit 15 minutes Regis Flowers APRN.PROFESSOR OF FOOD BIOCHEMISTRY Work Phone: [facility] Comment on above: Viral URI (Primary D x) Start: 11-18-2022 End: 11-18-2022 ambulatory [facility] Work Phone: Start: 11-18-2022 End: 11-18-2022 Patient encounter procedure [facility] Work Phone: Start: 08-26-2022 End: 08-26-2022 ambulatory [facility] Work Phone: Start: 08-26-2022 End: 08-26-2022 Patient encounter procedure [facility] Start: 07-10-2022 End: 07-10-2022 Patient encounter procedure Polina Stone PA-C Work Phone: [facility] Comment on above: Viral URI (Primary D x) Procedures Date Procedure Procedure Detail Performing Clinician Start: 07-20-2024 STREP A MOLECULAR (POC) Pia SLAUGHTER Work Phone: Start: 08-03-2023 COVID & INFLUENZA A/ B & RSV NAAT, ROUTINE Regis Flowers PUBLIC HEALTH MICROBIOLOGIST.PROFESSOR OF FOOD BIOCHEMISTRY Work Phone: Start: 08-01-2023 Radiologic exam ches t 2 views Marya Mcdermott PUBLIC HEALTH MICROBIOLOGIST.PROFESSOR OF FOOD BIOCHEMISTRY Work Phone: Start: 07-02-2023 STREP A MOLECULAR (POC) Polina Stone PA-C Work Phone: Start: 11-18-2022 Screening mammography Start: 07-10-2022 STREP A MOLECULAR (POC) Polina Stone PA-C Work Phone: Plan of Treatment Date Care Activity Detail Author Start: 07-05-2026 HPV TESTING HPV TESTING [facility] Start: 07-05-2026 PAP TESTING PAP TESTING [facility] Start: 07-05-2026 Screening for malign ant neoplasm of cervix [facility] Start: 03-03-2024 Influenza vaccination Influenza Vacc ine (#1) [facility] Start: 07-03-2023 Depression Assessment Depression Ass essment [facility] Start: 03-03-2023 Influenza vaccination Influenza Vacc ine (#1) [facility] Start: 07-10-2022 End: 07-24-2022 Influenza virus A and B RNA and SARS-CoV-2 (COVID-19) N gene panel - Respiratory specimen by IAVN with probe detection [facility] Work Phone: Comment on above: Expected: 07/10/2022 , Expires: 07/24/2022 Start: 07-05-2022 Screening for malign ant neoplasm of cervix Cervical Cancer Screening [facility] Start: 07-03-2022 DEPRESSION ASSESSMENT DEPRESSION ASS ESSMENT [facility] Start: 03-03-2022 Influenza vaccination INFLUENZA (#1) [facility] Start: 2016 SHINGRIX VACCINE (1 of 2) SHINGRIX VACCINE (1 of 2) [facility] Start: 11-22-2011 COLOGUARD (FIT-DNA) COLOGUARD (FIT-D NA) [facility] Start: 11-22-2011 Colonoscopy COLONOSCOPY [facility] Start: 11-22-2011 COLORECTAL CANCER SCREENING COLORECTAL CANCER SCREENING [facility] Start: 11-22-[address] COLONOGRAPHY [facility] Start: 11-22-2011 DIABETES SCREEN DIABETES SCREEN [facility] Start: 11-22-2011 Diabetes Screening Diabetes Screenin g [facility] Start: 11-22-2011 FECAL OCCULT BLOOD FECAL OCCULT BLOO D [facility] Start: 11-22-2011 Lipid 1996 panel - S pushpa or Plasma Lipid Screening [facility] Start: 11-22-2011 Lipid panel Lipid Screening [facility] Start: 11-22-2011 LIPID SCREEN LIPID SCREEN [facility] Start: 11-22-2011 Screening for malign ant neoplasm of colon [facility] Start: 11-22-2011 SIGMOIDOSCOPY SIGMOIDOSCOPY [facility] Start: 2006 Mammography [facility] Start: 2006 Screening for malign ant neoplasm of breast Mammogram Screening [facility] Start: 1985 Hepatitis B Vaccine (1 of 3 - 19+ 3-dose series) Hepatitis B Vaccine (1 of 3 - 19+ 3-dose series) [facility] Start: 1985 Pneumococcal Vaccine : 50+ (1 of 2 - PCV) Pneumococcal Vaccine: 50+ (1 of 2 - PCV) [facility] Start: 1985 Shingrix Vaccine (1 of 2) Shingrix Vaccine (1 of 2) [facility] Start: 1985 Urine microalbumin profile [facility] Start: 1984 Anxiety Screening Anxiety Screening [facility] Start: 1984 Depression Screening Depression Scre ening [facility] Start: 1984 HEPATITIS C SCREENING HEPATITIS C [facility] Start: 1984 Hepatitis C screening Hepatitis C [facility] Start: 1984 HIV SCREENING HIV SCREENING [facility] Start: 1984 HIV screening HIV Screening [facility] Start: 1972 Pneumococcal vaccination Pneum ococcal Vaccine (1 of 2 - PCV) [facility] Start: 11-22-1971 Covid-19 Vaccine (#1) Covid-19 Vacci ne (#1) [facility] Start: 05-24-1967 COVID-19 VACCINE (#1) COVID-19 VACCI NE (#1) [facility] Start: 1966 HEPATITIS B (1 of 3 - 3-dose series) HEPATITIS B (1 of 3 - 3-dose series) [facility] Start: 1966 Hepatitis B Vaccine (1 of 3 - 3-dose series) Hepatitis B Vaccine (1 of 3 - 3-dose series) [facility] COVID & INFLUENZA A/ B & RSV PCR, ROUTINE COVID & INFLUENZA A/B & RSV PCR, ROUTINE Microbiology Routine Viral URI Ordered: 07/20/2024 [facility] Work Phone: Comment on above: Ordered: 07/20/2024 [facility] c Payers Date Payer Category Payer Unknown [id number] 2024 Self-pay [id number] 2021 Unknown [id number] 2021 Unknown [id number] Unknown [id number] Unknown [id number] Unknown [id number] [id number] Unknown [id number] Unknown [id number] [id number] [id number] Unknown [id number] Unknown [id number] [id number] Social History Date Type Detail Facility Start: 07-10-2022 End: 02-06-2025 Tobacco smoking status NHIS Never smoked tobacco [facility] Start: 07-10-2022 Tobacco use and exposure Smokeless tobacco non-user [facility] Start: 07-10-2022 End: 07-20-2024 Alcohol intake Current drinker of alcohol (finding) [facility] Start: 07-05-2021 Alcohol Comment rare [facility] Start: 1965 Sex Assigned At Not on file [facility] Start: 11-24-2017 End: 11-24-2017 Tobacco smoking status NHIS Unknown if ever smoked [facility] Start: 11-24-2017 Non-smoker [facility] Start: 1965 Sex Assigned At Female [facility] Start: 06-10-2020 End: 03-15-2023 History of Social function [facility] Start: 06-10-2020 End: 03-15-2023 Tobacco use panel [facility] National Score (1-100), lower number is lower risk Not on file [facility] Clinical Notes 07-10-2022 to 07-22-2024 Telephone Encounter - Rohini Miller MA - 07/22/2024 8:04 AM ESTTelephone Encounter - Rohini Miller MA - 07/22/2024 8:04 AM ESTPatient InstructionsPatient Instructions Note Date & Type Note Facility 07-22-2024 Telephone encount er Note Patient given results and verbalized understanding of instructions given. Rohini Miller MA [facility] 07-22-2024 Miscellaneous Notes Formattin g of this note might be different from the original. Patient given results and verbalized understanding of instructions given. Rohini Miller MA Attempted to call patient. Requested call back. Please discuss when calls back. You tested negative for COVID, Influenza, and RSV. Please contact us if your symptoms are worsening or not improving. Please advise documented in this encounter [facility] 07-21-2024 Telephone encount er Note Attempted to call patient. Requested call back. Please discuss when calls back. [facility] 07-21-2024 Telephone encount er Note You tested negative for COVID, Influenza, and RSV. Please contact us if your symptoms are worsening or not improving. Please advise [facility] 07-20-2024 Radha Tovar APRN.CNP - 07/20/2024 10:17 AM EST ASSESSMENT/PLAN: 1. Sore throat - ICD9: 462, ICD10: J02.9 (primary diagnosis) - Group A strep molecular testing negative - Discussed supportive care treatment with fluids, rest and analgesia. - STREP A MOLECULAR (POC) 2. Viral URI - ICD9: 465.9, ICD10: J06.9 - Discussed viral etiology and rationale for treatment. - Symptomatic treatment with prn analgesia - Supportive care with fluids and rest - COVID & INFLUENZA A/B & RSV PCR, ROUTINE - Follow-up with your PCP in 3-5 days if symptoms have not improved or sooner if symptoms worsen - Discussed red flags and need for immediate medical evaluation if any occur. - Discussed supportive care treatment with fluids, rest and analgesia. - Discussed expected course of illness Radha Sultana APRN.CNP Treatment for Viral Upper Respiratory Tract Infections Your body will kill off the virus by itself. Additionally, you can prime your body's immune system. This may help you get better more quickly. Drink lots of fluids Make sure you are eating well Get plenty of rest We do not have any medications that kill off these viruses. Antibiotics are used to treat bacterial infections; however, they are not active against viral infections. There are some things that might help you feel better, though. Vaporizers, humidifiers, hot showers, and hot fluids help open respiratory and sinus passages [employer] may offer relief of nasal and head congestion [employer]'s Vapor Rub may relieve congestion Tylenol and Advil help control fevers and headaches Salt water gargles help relieve sore throats Chloraceptic spray or throat lozenges may also help relieve sore throat symptoms Occasionally, viral infections turn into something more serious. You should see your doctor or return to the Urgent Care if: You have fevers for longer than five days You have fevers above 102 degrees You are still sick after 10 days You have shortness of breath or wheezing After several days you are getting worse rather than better documented in this encounter [facility] 07-20-2024 Note HNO ID: [id number] Author: RADHA SULTANA APRN.PROFESSOR OF FOOD BIOCHEMISTRY Service: ? Author Type: Nurse Practitioner Type: Progress Notes Filed: 07/20/2024 10:17 Note Text: Subjective HPI Tomeka Alexandre is a 58 year old female who presents with one day of fever, body aches, sore throat, headache. She has had some intermittent nausea. Fever at home was 100.5 F. She took tylenol this morning. A coworker's daughter was treated for strep last week. . Review of Systems Constitutional: Positive for fever. HENT: Positive for congestion and sore throat. Negative for ear pain. Respiratory: Negative for cough. Cardiovascular: Negative. Gastrointestinal: Negative for diarrhea, nausea and vomiting. Musculoskeletal: Positive for myalgias. Neurological: Positive for headaches. BP 110/71 Pulse 93 Temp 37.4 ?C (99.4 ?F) Resp 18 Wt 75 kg (165 lb 5.5 oz) LMP 04/15/2011 SpO2 96% BMI 26.69 kg/m? PAST MEDICAL HISTORY Diagnosis Date NEGATIVE MEDICAL HISTORY PAST SURGICAL HISTORY Procedure Laterality Date LIGATE FALLOPIAN TUBE 1998 REDUCTION OF LARGE BREAST 2018 REMOVAL OF SPLEEN TOTAL ALLERGIES Multivitamin Additive MEDICATIONS semaglutide (OZEMPIC) 1 mg/0.75 ml subcutaneous pen injector Inject 1 mg subcutaneously one time a week. FLUoxetine (PROZAC) 20 mg capsule Take 20 mg by mouth once daily. rOPINIRole (REQUIP) 0.5 mg tablet Lactobacillus acidophilus (PROBIOTIC ORAL) Take by mouth. apremilast (OTEZLA) 30 mg tablet Take 30 mg by mouth two times a day. (Patient not taking: Reported on 07/20/2024) benzonatate (TESSALON PERLES) 100 mg capsule Take 1 capsule by mouth three times a day as needed for cough. (Patient not taking: Reported on 07/20/2024) albuterol HFA (PROAIR HFA) 90 mcg/actuation inhaler Inhale 2 Puffs as instructed every 6 hours as needed. (Patient not taking: Reported on 08/01/2023) meloxicam (MOBIC) 15 mg tablet (Patient not taking: Reported on 07/10/2022) DULoxetine (CYMBALTA) 60 mg capsule (Patient not taking: Reported on 07/20/2024) escitalopram oxalate (LEXAPRO) 10 mg tablet Take 1 tablet by mouth once daily. (Patient not taking: Reported on 07/10/2022) fluticasone (FLONASE) 50 mcg/actuation nasal spray Use 2 Sprays in each nostril once daily. Rinse mouth after use. (Patient not taking: Reported on 07/02/2023) No family history on file. Social History Tobacco Use Smoking status: Never Smokeless tobacco: Never Vaping Use Vaping status: Never Used Substance Use Topics Alcohol use: Yes Comment: rare Drug use: Never Objective Physical Exam Vitals and nursing note reviewed. Constitutional: General: She is not in acute distress. Appearance: Normal appearance. She is not ill-appearing. HENT: Right Ear: Tympanic membrane, ear canal and external ear normal. Left Ear: Tympanic membrane, ear canal and external ear normal. Nose: Nose normal. Mouth/Throat: Mouth: Mucous membranes are moist. Pharynx: Oropharynx is clear. Uvula midline. No oropharyngeal exudate or posterior oropharyngeal erythema. Cardiovascular: Rate and Rhythm: Normal rate and regular rhythm. Heart sounds: Normal heart sounds. Pulmonary: Effort: Pulmonary effort is normal. No respiratory distress. Breath sounds: Normal breath sounds. No wheezing or rales. Musculoskeletal: Cervical back: Neck supple. Skin: General: Skin is warm and dry. Findings: No erythema or rash. Neurological: Mental Status: She is alert. ASSESSMENT/PLAN: 1. Sore throat - ICD9: 462, ICD10: J02.9 (primary diagnosis) - Group A strep molecular testing negative - Discussed supportive care treatment with fluids, rest and analgesia. - STREP A MOLECULAR (POC) 2. Viral URI - ICD9: 465.9, ICD10: J06.9 - Discussed viral etiology and rationale for treatment. - Symptomatic treatment with prn analgesia - Supportive care with fluids and rest - COVID AND INFLUENZA A/B AND RSV PCR, ROUTINE - Follow-up with your PCP in 3-5 days if symptoms have not improved or sooner if symptoms worsen - Discussed red flags and need for immediate medical evaluation if any occur. - Discussed supportive care treatment with fluids, rest and analgesia. - Discussed expected course of illness Radha Sultana APRN.[facility] 07-20-2024 History of Presen t illness Narrative Subjective HPI Tomeka Alexandre is a 58 year old female who presents with one day of fever, body aches, sore throat, headache. She has had some intermittent nausea. Fever at home was 100.5 F. She took tylenol this morning. A coworker's daughter was treated for strep last week. . Review of Systems Constitutional: Positive for fever. HENT: Positive for congestion and sore throat. Negative for ear pain. Respiratory: Negative for cough. Cardiovascular: Negative. Gastrointestinal: Negative for diarrhea, nausea and vomiting. Musculoskeletal: Positive for myalgias. Neurological: Positive for headaches. BP 110/71 Pulse 93 Temp 37.4 C (99.4 F) Resp 18 Wt 75 kg (165 lb 5.5 oz) LMP 04/15/2011 SpO2 96% BMI 26.69 kg/m PAST MEDICAL HISTORY Diagnosis Date NEGATIVE MEDICAL HISTORY PAST SURGICAL HISTORY Procedure Laterality Date LIGATE FALLOPIAN TUBE 1998 REDUCTION OF LARGE BREAST 2017 REMOVAL OF SPLEEN TOTAL ALLERGIES Multivitamin Additive MEDICATIONS semaglutide (OZEMPIC) 1 mg/0.75 ml subcutaneous pen injector Inject 1 mg subcutaneously one time a week. FLUoxetine (PROZAC) 20 mg capsule Take 20 mg by mouth once daily. rOPINIRole (REQUIP) 0.5 mg tablet Lactobacillus acidophilus (PROBIOTIC ORAL) Take by mouth. apremilast (OTEZLA) 30 mg tablet Take 30 mg by mouth two times a day. (Patient not taking: Reported on 07/20/2024) benzonatate (TESSALON PERLES) 100 mg capsule Take 1 capsule by mouth three times a day as needed for cough. (Patient not taking: Reported on 07/20/2024) albuterol HFA (PROAIR HFA) 90 mcg/actuation inhaler Inhale 2 Puffs as instructed every 6 hours as needed. (Patient not taking: Reported on 08/01/2023) meloxicam (MOBIC) 15 mg tablet (Patient not taking: Reported on 07/10/2022) DULoxetine (CYMBALTA) 60 mg capsule (Patient not taking: Reported on 07/20/2024) escitalopram oxalate (LEXAPRO) 10 mg tablet Take 1 tablet by mouth once daily. (Patient not taking: Reported on 07/10/2022) fluticasone (FLONASE) 50 mcg/actuation nasal spray Use 2 Sprays in each nostril once daily. Rinse mouth after use. (Patient not taking: Reported on 07/02/2023) No family history on file. Social History Tobacco Use Smoking status: Never Smokeless tobacco: Never Vaping Use Vaping status: Never Used Substance Use Topics Alcohol use: Yes Comment: rare Drug use: Never Objective Physical Exam Vitals and nursing note reviewed. Constitutional: General: She is not in acute distress. Appearance: Normal appearance. She is not ill-appearing. HENT: Right Ear: Tympanic membrane, ear canal and external ear normal. Left Ear: Tympanic membrane, ear canal and external ear normal. Nose: Nose normal. Mouth/Throat: Mouth: Mucous membranes are moist. Pharynx: Oropharynx is clear. Uvula midline. No oropharyngeal exudate or posterior oropharyngeal erythema. Cardiovascular: Rate and Rhythm: Normal rate and regular rhythm. Heart sounds: Normal heart sounds. Pulmonary: Effort: Pulmonary effort is normal. No respiratory distress. Breath sounds: Normal breath sounds. No wheezing or rales. Musculoskeletal: Cervical back: Neck supple. Skin: General: Skin is warm and dry. Findings: No erythema or rash. Neurological: Mental Status: She is alert. ASSESSMENT/PLAN: 1. Sore throat - ICD9: 462, ICD10: J02.9 (primary diagnosis) - Group A strep molecular testing negative - Discussed supportive care treatment with fluids, rest and analgesia. - STREP A MOLECULAR (POC) 2. Viral URI - ICD9: 465.9, ICD10: J06.9 - Discussed viral etiology and rationale for treatment. - Symptomatic treatment with prn analgesia - Supportive care with fluids and rest - COVID & INFLUENZA A/B & RSV PCR, ROUTINE - Follow-up with your PCP in 3-5 days if symptoms have not improved or sooner if symptoms worsen - Discussed red flags and need for immediate medical evaluation if any occur. - Discussed supportive care treatment with fluids, rest and analgesia. - Discussed expected course of illness Radha Sultana APRN.PROFESSOR OF FOOD BIOCHEMISTRY documented in this encounter [facility] 08-04-2023 Miscellaneous Notes Formattin g of this note might be different from the original. Still unable to reach patient but she did review her results on my chart.Denise Blackmon LPN Left VM instructing patient to return call to receive results. Jeanine Garsia MA Please let patient know she tested positive for influenza A. She is out of the window for treatment with Tamiflu. Supportive measures at home. documented in this encounter [facility] 08-03-2023 Note HNO ID: [id number] Author: REGIS FLOWERS APRN.PROFESSOR OF FOOD BIOCHEMISTRY Service: ? Author Type: Nurse Practitioner Type: Progress Notes Filed: 08/03/2023 14:51 Note Text: Subjective HPI Nontoxic-appearing female presents urgent care chief complaint of cough and fever. Duration of symptoms 4 days. Associated symptoms fever body aches chills nasal congestion cough. Was seen here on Monday diagnosed with acute cough negative chest x-ray negative [id number] flu. States symptoms have stayed persistent. Most bothersome symptom today is cough body aches and fever. No known sick contacts. Has been using OTC medications have helped some. Denies any productive cough chest pain shortness of breath pleuritic pain hemoptysis nausea vomiting abdominal pain change in bowel or bladder meds. Past medical history prescription medication use allergies reviewed. Risk factors removal spleen. .Patient presents with: Flu Like Symptoms: Fever, body aches, sinus drainage, cough, x 4 days PAST MEDICAL HISTORY Diagnosis Date NEGATIVE MEDICAL HISTORY PAST SURGICAL HISTORY Procedure Laterality Date LIGATE FALLOPIAN TUBE 1998 REDUCTION OF LARGE BREAST 2018 REMOVAL OF SPLEEN TOTAL ALLERGIES Multivitamin Additive MEDICATIONS apremilast (OTEZLA) 30 mg tablet Take 30 mg by mouth two times a day. benzonatate (TESSALON PERLES) 100 mg capsule Take 1 capsule by mouth three times a day as needed for cough. rOPINIRole (REQUIP) 0.5 mg tablet DULoxetine (CYMBALTA) 60 mg capsule Lactobacillus acidophilus (PROBIOTIC ORAL) Take by mouth. albuterol HFA (PROAIR HFA) 90 mcg/actuation inhaler Inhale 2 Puffs as instructed every 6 hours as needed. (Patient not taking: Reported on 08/01/2023) meloxicam (MOBIC) 15 mg tablet (Patient not taking: Reported on 07/10/2022) escitalopram oxalate (LEXAPRO) 10 mg tablet Take 1 tablet by mouth once daily. (Patient not taking: Reported on 07/10/2022) fluticasone (FLONASE) 50 mcg/actuation nasal spray Use 2 Sprays in each nostril once daily. Rinse mouth after use. (Patient not taking: Reported on 07/02/2023) History reviewed. No pertinent family history. Social History Tobacco Use Smoking status: Never Smokeless tobacco: Never Vaping Use Vaping Use: Never used Substance Use Topics Alcohol use: Yes Comment: rare Drug use: Never BP 120/74 Pulse 92 Temp (!) 38.2 ?C (100.7 ?F) Resp 18 Wt 76.2 kg (168 lb) LMP 04/15/2011 SpO2 96% BMI 27.12 kg/m? Review of Systems Constitutional: Positive for chills, fever and malaise/fatigue. HENT: Positive for congestion and sore throat. Negative for ear discharge, ear pain and sinus pain. Eyes: Negative for blurred vision, pain, discharge and redness. Respiratory: Positive for cough. Negative for hemoptysis, sputum production, shortness of breath, wheezing and stridor. Cardiovascular: Negative for chest pain. Gastrointestinal: Negative for abdominal pain, diarrhea, nausea and vomiting. Musculoskeletal: Positive for myalgias. Skin: Negative for itching and rash. Neurological: Negative for dizziness and headaches. Objective Physical Exam Constitutional: General: She is not in acute distress. Appearance: She is not diaphoretic. HENT: Head: Normocephalic. Jaw: No trismus, tenderness, swelling or pain on movement. Right Ear: Tympanic membrane, ear canal and external ear normal. Left Ear: Tympanic membrane, ear canal and external ear normal. Nose: Congestion present. Mouth/Throat: Mouth: Mucous membranes are moist. Pharynx: Oropharynx is clear. Uvula midline. No pharyngeal swelling, oropharyngeal exudate, posterior oropharyngeal erythema or uvula swelling. Eyes: Conjunctiva/sclera: Conjunctivae normal. Pupils: Pupils are equal, round, and reactive to light. Cardiovascular: Rate and Rhythm: Normal rate and regular rhythm. Heart sounds: Normal heart sounds. Pulmonary: Effort: Pulmonary effort is normal. No tachypnea, accessory muscle usage or respiratory distress. Breath sounds: Normal breath sounds. No stridor. No wheezing, rhonchi or rales. Abdominal: General: There is no distension. Palpations: Abdomen is soft. Tenderness: There is no abdominal tenderness. There is no guarding or rebound. Musculoskeletal: Cervical back: Normal range of motion and neck supple. No edema, erythema, rigidity or tenderness. No pain with movement. Normal range of motion. Lymphadenopathy: Cervical: No cervical adenopathy. Skin: General: Skin is warm and dry. Neurological: Mental Status: She is alert and oriented to person, place, and time. ASSESSMENT/PLAN: 1. Viral illness - ICD9: 079.99, ICD10: B34.9 (primary diagnosis) - COVID AND INFLUENZA A/B AND RSV NAAT, ROUTINE 2. Fever, unspecified fever cause - ICD9: 780.60, ICD10: R50.9 Diagnosed with viral illness and fever. Suspicious of viral etiology at this point. No evidence of bacterial infection noted on today exam. No adventitious lung sounds. (more content not included)... [facility] 08-03-2023 History of Presen t illness Narrative Subjective HPI Nontoxic-appearing female presents urgent care chief complaint of cough and fever. Duration of symptoms 4 days. Associated symptoms fever body aches chills nasal congestion cough. Was seen here on Monday diagnosed with acute cough negative chest x-ray negative [id number] flu. States symptoms have stayed persistent. Most bothersome symptom today is cough body aches and fever. No known sick contacts. Has been using OTC medications have helped some. Denies any productive cough chest pain shortness of breath pleuritic pain hemoptysis nausea vomiting abdominal pain change in bowel or bladder meds. Past medical history prescription medication use allergies reviewed. Risk factors removal spleen. .Patient presents with: Flu Like Symptoms: Fever, body aches, sinus drainage, cough, x 4 days PAST MEDICAL HISTORY Diagnosis Date NEGATIVE MEDICAL HISTORY PAST SURGICAL HISTORY Procedure Laterality Date LIGATE FALLOPIAN TUBE 1998 REDUCTION OF LARGE BREAST 2017 REMOVAL OF SPLEEN TOTAL ALLERGIES Multivitamin Additive MEDICATIONS apremilast (OTEZLA) 30 mg tablet Take 30 mg by mouth two times a day. benzonatate (TESSALON PERLES) 100 mg capsule Take 1 capsule by mouth three times a day as needed for cough. rOPINIRole (REQUIP) 0.5 mg tablet DULoxetine (CYMBALTA) 60 mg capsule Lactobacillus acidophilus (PROBIOTIC ORAL) Take by mouth. albuterol HFA (PROAIR HFA) 90 mcg/actuation inhaler Inhale 2 Puffs as instructed every 6 hours as needed. (Patient not taking: Reported on 08/01/2023) meloxicam (MOBIC) 15 mg tablet (Patient not taking: Reported on 07/10/2022) escitalopram oxalate (LEXAPRO) 10 mg tablet Take 1 tablet by mouth once daily. (Patient not taking: Reported on 07/10/2022) fluticasone (FLONASE) 50 mcg/actuation nasal spray Use 2 Sprays in each nostril once daily. Rinse mouth after use. (Patient not taking: Reported on 07/02/2023) History reviewed. No pertinent family history. Social History Tobacco Use Smoking status: Never Smokeless tobacco: Never Vaping Use Vaping Use: Never used Substance Use Topics Alcohol use: Yes Comment: rare Drug use: Never BP 120/74 Pulse 92 Temp (!) 38.2 C (100.7 F) Resp 18 Wt 76.2 kg (168 lb) LMP 04/15/2011 SpO2 96% BMI 27.12 kg/m Review of Systems Constitutional: Positive for chills, fever and malaise/fatigue. HENT: Positive for congestion and sore throat. Negative for ear discharge, ear pain and sinus pain. Eyes: Negative for blurred vision, pain, discharge and redness. Respiratory: Positive for cough. Negative for hemoptysis, sputum production, shortness of breath, wheezing and stridor. Cardiovascular: Negative for chest pain. Gastrointestinal: Negative for abdominal pain, diarrhea, nausea and vomiting. Musculoskeletal: Positive for myalgias. Skin: Negative for itching and rash. Neurological: Negative for dizziness and headaches. Objective Physical Exam Constitutional: General: She is not in acute distress. Appearance: She is not diaphoretic. HENT: Head: Normocephalic. Jaw: No trismus, tenderness, swelling or pain on movement. Right Ear: Tympanic membrane, ear canal and external ear normal. Left Ear: Tympanic membrane, ear canal and external ear normal. Nose: Congestion present. Mouth/Throat: Mouth: Mucous membranes are moist. Pharynx: Oropharynx is clear. Uvula midline. No pharyngeal swelling, oropharyngeal exudate, posterior oropharyngeal erythema or uvula swelling. Eyes: Conjunctiva/sclera: Conjunctivae normal. Pupils: Pupils are equal, round, and reactive to light. Cardiovascular: Rate and Rhythm: Normal rate and regular rhythm. Heart sounds: Normal heart sounds. Pulmonary: Effort: Pulmonary effort is normal. No tachypnea, accessory muscle usage or respiratory distress. Breath sounds: Normal breath sounds. No stridor. No wheezing, rhonchi or rales. Abdominal: General: There is no distension. Palpations: Abdomen is soft. Tenderness: There is no abdominal tenderness. There is no guarding or rebound. Musculoskeletal: Cervical back: Normal range of motion and neck supple. No edema, erythema, rigidity or tenderness. No pain with movement. Normal range of motion. Lymphadenopathy: Cervical: No cervical adenopathy. Skin: General: Skin is warm and dry. Neurological: Mental Status: She is alert and oriented to person, place, and time. ASSESSMENT/PLAN: 1. Viral illness - ICD9: 079.99, ICD10: B34.9 (primary diagnosis) - COVID & INFLUENZA A/B & RSV NAAT, ROUTINE 2. Fever, unspecified fever cause - ICD9: 780.60, ICD10: R50.9 Diagnosed with viral illness and fever. Suspicious of viral etiology at this point. No evidence of bacterial infection noted on today exam. No adventitious lung sounds. Will test for COVID-19. Treat accordingly test results. If COVID-19 test is negative fever still persist will take doxycycline follow-up PCP. Patient was educated on supportive therapies. Patient will follow up with primary care provider as needed. Patient was instructed to immediately proceed to emergency room for any new, worsening, or symptoms lasting longer than anticipated. The patient's clinical presentation is otherwise unremarkable at this time. Based on exam and clinical finding, the patient is stable for discharge. Plan of care was discussed with patient. Patient verbalizes understanding and agrees to plan of care. This note was generated using [employer] software. It may contain errors in wording, punctuation, or spelling. Regis Flowers APRN.LUIS MIGUEL documented in this encounter [facility] 08-03-2023 Instructions Regis Flowers APRN.LUIS MIGUEL - 08/03/2023 2:40 PM EST How to Manage Common Symptoms Associated with COVID for Adults Fever- Fever is a temperature over 100.4 F and can occur when the body is fighting an infection. To help treat a fever: Drink plenty of fluids and stay well hydrated. Eat small amounts of easy to digest food. Rest. Your body needs rest to recover, but getting up and moving around the house frequently is a good idea. You should try to continue doing your normal daily activities (bathing, toileting, grooming, cooking), though you will probably feel tired, and need to rest often. Avoid any heavy activity or exercise, as this will increase your body temperature. Dress in light clothing and stay covered in a light sheet. Keep the room temperature cool. Take a slightly warm (not cold or cool) bath, or apply damp washcloths to the forehead and wrists. Cough- Cough is a common symptom associated with COVID and can be bothersome. To help treat a cough: Stay well hydrated. Try warm water or tea with lemon and/or honey to help soothe the cough. Use a humidifier to add moisture to the air. Try a product with menthol, like a cough drop or a rub for your chest such as Vicks, which can help reduce cough. Try cough drops. Avoid smoking and other strong odors or perfumes. Try breathing exercises to keep your lungs open and clear. Take a big deep breath through your nose and hold for 5 seconds before slowly releasing. Repeat frequently, while you are awake. Congestion- Runny nose or nasal congestion can occur with COVID. Treatment can help relieve symptoms: Try OTC nasal saline spray, or nasal saline rinse to relieve mucus congestion. Nasal strips can help keep nasal passages open, to increase airflow. Elevating your head with an extra pillow in bed can help reduce congestion. Using a humidifier can increase moisture in the air, and make breathing easier. Sore Throat- Another common symptom with COVID, can be managed at home by: Stay well hydrated. Gargle with salt water - mix teaspoon salt with 1 cup of warm water and gargle. This helps to loosen mucus in the back of the throat and may reduce discomfort. Try ice chips, popsicles or lozenges to soothe the throat. Nausea/Vomiting/Diarrhea- These are common symptoms, and staying hydrated is most important. If you are nauseous or vomiting, start with small sips of water every 10-15 minutes and increase as tolerated. You can try sucking an ice cube too. If tolerating, you can try pedialyte or Gatorade, or flat sprite or kate-sarah. Start slowly and increase as you are able to. Instead of meals, try smaller, more frequent snacks. Try eating bland foods like crackers, toast, rice, and applesauce. Avoid spicy, greasy or fried foods and dairy containing foods. Even if you aren't feeling hungry due to lack of smell or taste, it is important to try to take in some food when you are able. After drinking and eating, rest in an upright position for up to two hours as needed to help decrease nauseous feelings. Try closing your eyes, avoid moving and watching TV. Avoid strong odors that can make you feel more nauseated. When to seek emergency medical attention Look for emergency warning signs for COVID-19. If having any of these symptoms, seek emergency medical care immediately: Trouble breathing Persistent pain or pressure in the chest New confusion Inability to wake or stay awake Bluish lips or face *This list is not all possible symptoms. Please call your medical provider for any other symptoms that are severe or concerning to you. documented in this encounter [facility] 08-01-2023 History of Presen t illness Narrative Radiology Service Progress Note PATIENT NAME: Tomeka Alexandre DATE OF SERVICE: August 01, 2023 TIME: 9:32 AM PATIENT IDENTITY VERIFICATION COMPLETED USING TWO (2) IDENTIFIERS: Name and Date of confirmed by patient verbally. FALL SCREENING: Has the patient had 2 falls in the last year or 1 fall with injury or currently using an Ambulatory Assistive Device (Walker, Cane, Wheelchair, Crutches, etc.)? No PATIENT GENDER DATA: Female. status: : No status: NO. PATIENT RELEVANT IMPLANT DATA REVIEWED: Yes PATIENT PRESENTS WITH AN IMPLANTABLE OR ATTACHED ARTIFICIAL LEATHER CALENDER OPERATOR: No RADIOLOGY DEPARTMENT: General X-ray: Exam(s) Completed: Chest X-Ray PERIPHERAL IV DATA: Not applicable SIGNED BY: RT Estephanie(R) August 01, 2023 9:32 AM documented in this encounter [facility] 08-01-2023 Note HNO ID: [id number] Author: SELAM CURTIS RT(Rosey) Service: ? Author Type: Test Pilot Type: Progress Notes Filed: 08/01/2023 09:38 Note Text: Radiology Service Progress Note PATIENT NAME: Tomeka Alexandre DATE OF SERVICE: August 01, 2023 TIME: 9:32 AM PATIENT IDENTITY VERIFICATION COMPLETED USING TWO (2) IDENTIFIERS: Name and Date of confirmed by patient verbally. FALL SCREENING: Has the patient had 2 falls in the last year or 1 fall with injury or currently using an Ambulatory Assistive Device (Walker, Cane, Wheelchair, Crutches, etc.)? No PATIENT GENDER DATA: Female. status: : No status: NO. PATIENT RELEVANT IMPLANT DATA REVIEWED: Yes PATIENT PRESENTS WITH AN IMPLANTABLE OR ATTACHED ARTIFICIAL LEATHER CALENDER OPERATOR: No RADIOLOGY DEPARTMENT: General X-ray: Exam(s) Completed: Chest X-Ray PERIPHERAL IV DATA: Not applicable SIGNED BY: RT Estephanie(R) August 01, 2023 9:32 AM [facility] 08-01-2023 Note HNO ID: [id number] Author: MARYA MCDERMOTT APRN.PROFESSOR OF FOOD BIOCHEMISTRY Service: ? Author Type: Nurse Practitioner Type: Progress Notes Filed: 08/01/2023 09:56 Note Text: This note was created using [employer]. Subjective Tomeka Alexandre is a 57 year old female. 57 year old female with psoriasis, RLS, depression presents for illness. Acute onset yesterday Upon awakening + headache + cough +chest tightness +winded with activity +body aches +fatigue +chills Denies fever Denies ear, nose, or throat Denies tobacco usage Mucinex @ 0600 Endorses that she was treated for a pneumonia 07/02/23. The history is provided by the patient. No retail office manager was used. Cough This is a new problem. The current episode started yesterday. The problem occurs constantly. The problem has been gradually worsening. The cough is Non-productive. There has been no fever. Associated symptoms include chills, headaches and myalgias. Pertinent negatives include no chest pain, no sweats, no weight loss, no ear congestion, no ear pain, no rhinorrhea, no sore throat, no shortness of breath, no wheezing and no eye redness. She has tried decongestants for the symptoms. The treatment provided no relief. She is not a smoker. Her past medical history does not include bronchitis, pneumonia, bronchiectasis, COPD, emphysema or asthma. PAST MEDICAL HISTORY Diagnosis Date NEGATIVE MEDICAL HISTORY PAST SURGICAL HISTORY Procedure Laterality Date LIGATE FALLOPIAN TUBE 1998 REDUCTION OF LARGE BREAST 2018 REMOVAL OF SPLEEN TOTAL ALLERGIES Multivitamin Additive MEDICATIONS apremilast (OTEZLA) 30 mg tablet Take 30 mg by mouth two times a day. rOPINIRole (REQUIP) 0.5 mg tablet DULoxetine (CYMBALTA) 60 mg capsule Lactobacillus acidophilus (PROBIOTIC ORAL) Take by mouth. benzonatate (TESSALON PERLES) 100 mg capsule Take 1 capsule by mouth three times a day as needed for cough. albuterol HFA (PROAIR HFA) 90 mcg/actuation inhaler Inhale 2 Puffs as instructed every 6 hours as needed. (Patient not taking: Reported on 08/01/2023) meloxicam (MOBIC) 15 mg tablet (Patient not taking: Reported on 07/10/2022) escitalopram oxalate (LEXAPRO) 10 mg tablet Take 1 tablet by mouth once daily. (Patient not taking: Reported on 07/10/2022) fluticasone (FLONASE) 50 mcg/actuation nasal spray Use 2 Sprays in each nostril once daily. Rinse mouth after use. (Patient not taking: Reported on 07/02/2023) No family history on file. Social History Tobacco Use Smoking status: Never Smokeless tobacco: Never Vaping Use Vaping Use: Never used Substance Use Topics Alcohol use: Yes Comment: rare Drug use: Never Review of Systems Constitutional: Positive for chills and fatigue. Negative for weight loss. HENT: Positive for congestion. Negative for ear pain, rhinorrhea and sore throat. Eyes: Negative for discharge, redness and itching. Respiratory: Positive for cough. Negative for apnea, chest tightness, shortness of breath and wheezing. Cardiovascular: Negative for chest pain. Gastrointestinal: Negative for abdominal pain, diarrhea, nausea and vomiting. Musculoskeletal: Positive for myalgias. Skin: Negative for color change, pallor, rash and wound. Allergic/Immunologic: Negative for environmental allergies, food allergies and immunocompromised state. Neurological: Positive for headaches. Negative for dizziness and facial asymmetry. Hematological: Negative for adenopathy. Does not bruise/bleed easily. Psychiatric/Behavioral: Negative for agitation and behavioral problems. Objective BP 156/90 Pulse 118 Temp 37.6 ?C (99.6 ?F) Resp 21 Wt 77.1 kg (170 lb) LMP 04/15/2011 SpO2 96% BMI 27.44 kg/m? Physical Exam Vitals and nursing note reviewed. Constitutional: General: She is not in acute distress. Appearance: Normal appearance. She is normal weight. She is not ill-appearing, toxic-appearing or diaphoretic. HENT: Head: Normocephalic and atraumatic. Right Ear: Ear canal and external ear normal. Left Ear: Ear canal and external ear normal. Nose: Congestion present. No rhinorrhea. Mouth/Throat: Mouth: Mucous membranes are moist. Pharynx: Posterior oropharyngeal erythema present. No oropharyngeal exudate. Eyes: General: Right eye: No discharge. Left eye: No discharge. Extraocular Movements: Extraocular movements intact. Conjunctiva/sclera: Conjunctivae normal. Pupils: Pupils are equal, round, and reactive to light. Cardiovascular: Rate and Rhythm: Normal rate and regular rhythm. Pulses: Normal pulses. Heart sounds: Normal heart sounds. No murmur heard. No friction rub. Pulmonary: Effort: Pulmonary effort is normal. No respiratory distress. Breath sounds: Normal breath sounds. No stridor. No wheezing, rhonchi or rales. Chest: Chest wall: No tenderness. Abdominal: General: Abdomen is flat. There is no distension. Palpations: Abdomen is soft. There is no mass. Tenderness: (more content not included)... [facility] 07-02-2023 History of Presen t illness Narrative This note was created using [employer]. Subjective Tomeka Alexandre is a 57 year old female. HPI Presents with a chief complaint of cough and congestion over the past 8 days. She had a fever last night of 101. She had not had a fever otherwise during her illness. She states cough is not improving. She has used some Mucinex [id number]. No diarrhea or vomiting. No home COVID test done. She states it does hurt in her chest when she coughs. She is not a smoker. Denies history of asthma. Review of Systems Constitutional: Positive for fatigue and fever. HENT: Positive for congestion and sore throat. Negative for ear pain. Respiratory: Positive for cough and chest tightness. Negative for shortness of breath and wheezing. Cardiovascular: Negative. Gastrointestinal: Negative. Genitourinary: Negative. Musculoskeletal: Negative. All other systems reviewed and are negative. PAST MEDICAL HISTORY Diagnosis Date NEGATIVE MEDICAL HISTORY Current Outpatient Medications Medication Sig Dispense Refill rOPINIRole (REQUIP) 0.5 mg tablet DULoxetine (CYMBALTA) 60 mg capsule Lactobacillus acidophilus (PROBIOTIC ORAL) Take by mouth. doxycycline (VIBRA-TABS) 100 mg tablet Take 1 tablet by mouth two times a day for 7 days. 14 tablet 0 albuterol HFA (PROAIR HFA) 90 mcg/actuation inhaler Inhale 2 Puffs as instructed every 6 hours as needed. 1 Each 0 meloxicam (MOBIC) 15 mg tablet (Patient not taking: Reported on 07/10/2022) escitalopram oxalate (LEXAPRO) 10 mg tablet Take 1 tablet by mouth once daily. (Patient not taking: Reported on 07/10/2022) fluticasone (FLONASE) 50 mcg/actuation nasal spray Use 2 Sprays in each nostril once daily. Rinse mouth after use. (Patient not taking: Reported on 07/02/2023) 1 Bottle 0 No current facility-administered medications for this visit. PAST SURGICAL HISTORY Procedure Laterality Date LIGATE FALLOPIAN TUBE 1998 REDUCTION OF LARGE BREAST 2018 REMOVAL OF SPLEEN TOTAL No family history on file. Social History Tobacco Use Smoking status: Never Smokeless tobacco: Never Vaping Use Vaping Use: Never used Substance Use Topics Alcohol use: Yes Comment: rare Drug use: Never Objective BP 126/80 Pulse 84 Temp 36.7 C (98 F) Resp 16 Wt 78.9 kg (174 lb) LMP 04/15/2011 SpO2 94% BMI 28.08 kg/m Physical Exam Vitals reviewed. Constitutional: Appearance: Normal appearance. HENT: Head: Normocephalic and atraumatic. Right Ear: Tympanic membrane, ear canal and external ear normal. Left Ear: Tympanic membrane, ear canal and external ear normal. Nose: Congestion present. Mouth/Throat: Mouth: Mucous membranes are moist. Pharynx: Oropharynx is clear. Cardiovascular: Rate and Rhythm: Normal rate and regular rhythm. Heart sounds: Normal heart sounds. Pulmonary: Effort: Pulmonary effort is normal. Breath sounds: Normal breath sounds. Musculoskeletal: Cervical back: Neck supple. Skin: General: Skin is warm and dry. Neurological: Mental Status: She is alert. Assessment and Plan ASSESSMENT/PLAN: 1. Lower resp. tract infection - ICD9: 519.8, ICD10: J22 Has been ill for 8 days, she did have a fever on day 7 yesterday. Concerning for secondary bacterial infection/pneumonia. Strep test is negative. Will treat with doxycycline empirically. X-ray not available today. Discussed if not improving by Monday to be seen again. Patient agreeable with plan. - STREP A MOLECULAR (POC) Polina Stone PA-C documented in this encounter [facility] 03-15-2023 History of Presen t illness Narrative Subjective HPI Nontoxic-appearing female presents to urgent care with chief complaint of fever and cough. Duration of symptoms 2 days Associated symptoms with today's chief complaint are on and off headache, muscle aches, fatigue, sore throat, nonproductive cough, and fever. Patient stated symptoms started abruptly. Patient states they have used [id number] medication with some success. No known sick contacts. Patient denies any pain at this time. Patient denies any visual changes, visual disturbance, shortness of breath, rash, exercise intolerance, pleuritic pain, productive cough, abdominal pain, nausea, vomiting, chest pain, or change in bowel or bladder habits. Past medical history prescription medication use allergies reviewed. .Patient presents with: Head Congestion: sinus pressure, drainage, bodyaches, sore throat and fever x 2 days PAST MEDICAL HISTORY Diagnosis Date NEGATIVE MEDICAL HISTORY PAST SURGICAL HISTORY Procedure Laterality Date LIGATE FALLOPIAN TUBE 1998 REDUCTION OF LARGE BREAST 2018 REMOVAL OF SPLEEN TOTAL ALLERGIES Multivitamin Additive MEDICATIONS rOPINIRole (REQUIP) 0.5 mg tablet DULoxetine (CYMBALTA) 60 mg capsule Lactobacillus acidophilus (PROBIOTIC ORAL) Take by mouth. fluticasone (FLONASE) 50 mcg/actuation nasal spray Use 2 Sprays in each nostril once daily. Rinse mouth after use. meloxicam (MOBIC) 15 mg tablet (Patient not taking: Reported on 07/10/2022) escitalopram oxalate (LEXAPRO) 10 mg tablet Take 1 tablet by mouth once daily. (Patient not taking: Reported on 07/10/2022) No family history on file. Social History Tobacco Use Smoking status: Never Smokeless tobacco: Never Vaping Use Vaping Use: Never used Substance Use Topics Alcohol use: Yes Comment: rare Drug use: Never BP 122/80 Pulse 106 Temp 37.5 C (99.5 F) Resp 16 Wt 77.1 kg (170 lb) LMP 04/15/2011 SpO2 98% BMI 27.44 kg/m Hr 92 Review of Systems Constitutional: Positive for chills, fever and malaise/fatigue. HENT: Positive for congestion and sore throat. Negative for ear discharge, ear pain and sinus pain. Eyes: Negative for blurred vision, pain, discharge and redness. Respiratory: Positive for cough. Negative for hemoptysis, sputum production, shortness of breath, wheezing and stridor. Cardiovascular: Negative for chest pain. Gastrointestinal: Negative for abdominal pain, diarrhea, nausea and vomiting. Musculoskeletal: Positive for myalgias. Skin: Negative for itching and rash. Neurological: Positive for headaches. Negative for dizziness. Objective Physical Exam Constitutional: General: She is not in acute distress. Appearance: She is not diaphoretic. HENT: Head: Normocephalic. Jaw: No trismus, tenderness, swelling or pain on movement. Right Ear: Tympanic membrane, ear canal and external ear normal. Left Ear: Tympanic membrane, ear canal and external ear normal. Nose: Congestion present. Mouth/Throat: Mouth: Mucous membranes are moist. Pharynx: Oropharynx is clear. Uvula midline. No pharyngeal swelling, oropharyngeal exudate, posterior oropharyngeal erythema or uvula swelling. Eyes: Conjunctiva/sclera: Conjunctivae normal. Pupils: Pupils are equal, round, and reactive to light. Cardiovascular: Rate and Rhythm: Normal rate and regular rhythm. Heart sounds: Normal heart sounds. Pulmonary: Effort: Pulmonary effort is normal. No tachypnea, accessory muscle usage or respiratory distress. Breath sounds: Normal breath sounds. No stridor. No wheezing, rhonchi or rales. Abdominal: General: There is no distension. Palpations: Abdomen is soft. Tenderness: There is no abdominal tenderness. There is no guarding or rebound. Musculoskeletal: Cervical back: Normal range of motion and neck supple. No edema, erythema, rigidity or tenderness. No pain with movement. Normal range of motion. Lymphadenopathy: Cervical: No cervical adenopathy. Skin: General: Skin is warm and dry. Neurological: Mental Status: She is alert and oriented to person, place, and time. ASSESSMENT/PLAN: 1. Viral URI - ICD9: 465.9, ICD10: J06.9 No evidence of bacterial infection. Suspicious of viral etiology of symptoms. COVID-19 influenza test offered declined testing at this time. Treat conservatively. Patient was educated on supportive therapies. Patient will follow up with primary care provider as needed. Patient was instructed to immediately proceed to emergency room for any new, worsening, or symptoms lasting longer than anticipated. The patient's clinical presentation is otherwise unremarkable at this time. Based on exam and clinical finding, the patient is stable for discharge. Plan of care was discussed with patient. Patient verbalizes understanding and agrees to plan of care. This note was generated using [employer] software. It may contain errors in wording, punctuation, or spelling. Regis Flowers APRN.LUIS MIGUEL documented in this encounter [facility] 07-10-2022 History of Presen t illness Narrative This note was created using [employer]. Subjective Tomeka Alexandre is a 56 year old female. HPI Patient presents with sore throat, postnasal drip and cough with fever over the past day. No chest pain or shortness of breath. No vomiting or diarrhea. She has had some body aches. Denies sick contacts. Review of Systems Constitutional: Positive for chills, fatigue and fever. HENT: Positive for congestion, postnasal drip and sore throat. Respiratory: Positive for cough. Cardiovascular: Negative. Gastrointestinal: Negative. Genitourinary: Negative. Musculoskeletal: Negative. All other systems reviewed and are negative. PAST MEDICAL HISTORY Diagnosis Date NEGATIVE MEDICAL HISTORY Current Outpatient Medications Medication Sig Dispense Refill rOPINIRole (REQUIP) 0.5 mg tablet DULoxetine (CYMBALTA) 60 mg capsule Lactobacillus acidophilus (PROBIOTIC ORAL) Take by mouth. fluticasone (FLONASE) 50 mcg/actuation nasal spray Use 2 Sprays in each nostril once daily. Rinse mouth after use. 1 Bottle 0 meloxicam (MOBIC) 15 mg tablet (Patient not taking: Reported on 07/10/2022) escitalopram oxalate (LEXAPRO) 10 mg tablet Take 1 tablet by mouth once daily. (Patient not taking: Reported on 07/10/2022) No current facility-administered medications for this visit. PAST SURGICAL HISTORY Procedure Laterality Date LIGATE FALLOPIAN TUBE 1998 REDUCTION OF LARGE BREAST 2018 REMOVAL OF SPLEEN TOTAL No family history on file. Social History Tobacco Use Smoking status: Never Smokeless tobacco: Never Vaping Use Vaping Use: Never used Substance Use Topics Alcohol use: Yes Comment: rare Drug use: Never Objective BP 114/86 Pulse 93 Temp 37.6 C (99.7 F) Resp 16 Wt 76.7 kg (169 lb) LMP 04/15/2011 SpO2 97% BMI 27.28 kg/m Physical Exam Vitals reviewed. Constitutional: Appearance: Normal appearance. HENT: Head: Normocephalic and atraumatic. Right Ear: Tympanic membrane, ear canal and external ear normal. Left Ear: Tympanic membrane, ear canal and external ear normal. Nose: Congestion present. Mouth/Throat: Mouth: Mucous membranes are moist. Pharynx: Pharyngeal swelling, oropharyngeal exudate and posterior oropharyngeal erythema present. No uvula swelling. Tonsils: No tonsillar exudate or tonsillar abscesses. 1+ on the right. 1+ on the left. Cardiovascular: Rate and Rhythm: Normal rate and regular rhythm. Heart sounds: Normal heart sounds. Pulmonary: Effort: Pulmonary effort is normal. Breath sounds: Normal breath sounds. Musculoskeletal: Cervical back: Neck supple. Lymphadenopathy: Cervical: No cervical adenopathy. Skin: General: Skin is warm and dry. Neurological: General: No focal deficit present. Mental Status: She is alert and oriented to person, place, and time. Assessment and Plan ASSESSMENT/PLAN: 1. Viral URI - ICD9: 465.9, ICD10: J06.9 - Discussed viral etiology and rationale for treatment. - Alere Strep Test negative, no culture pending - Symptomatic treatment with prn analgesia - Supportive care with fluids and rest - The patient may also use OTC cough and cold meds as needed. - Follow up in 3-5 days if symptoms persist or sooner if worsening of symptoms - STREP A MOLECULAR (POC) - COVID WITH FLUA+B, ROUTINE Polina Stone PA-C documented in this encounter [facility] Evaluation note Diagnosis Viral URI- Primary Acute upper respiratory infections of unspecified site documented in this encounter [facility] noteNo assessment information availableWLakeHealth [facility] Work Phone: Evaluation note* Diagnosis Viral URI- Primary Acute upper respiratory infections of unspecified site documented in this encounter [facility] note* Diagnosis Lower resp. tract infection- Primary Other diseases of respiratory system, not elsewhere classified documented in this encounter [facility] note* Diagnosis Viral illness- Primary Unspecified viral infection, in conditions classified elsewhere and of unspecified site Fever, unspecified fever cause documented in this encounter [facility] note* Diagnosis Acute cough documented in this encounter [facility] note* Diagnosis Sore throat- Primary Acute pharyngitis Viral URI Acute upper respiratory infections of unspecified site documented in this encounter [facility] note* Diagnosis Onset Date Resolution Status Admit Date Overweight (BMI 25.0-29.9) acute February 06, 2025 1:10pm Post-menopausal acute January 1:10pm [facility] Work Phone: Reason for referral (narrative)No reason for referral information availableBlLong Beach [facility] Work Phone: Health Concerns Infection Onset Date Last Indicated Resolved Time COVID-19 Rule-Out 07/10/2022 07/10/2022 Infection Onset Date Last Indicated Resolved Time COVID-19 Rule-Out 08/03/2023 08/03/2023 08/04/2023 1:47 AM EST Infection Onset Date Last Indicated Resolved Time COVID-19 Rule-Out 08/03/2023 08/03/2023 08/04/2023 1:47 AM EST Influenza 08/03/2023 08/03/2023 Advance Directives No Advanced Directives Records Found Advance Directive Response Recorded Date/ Time Living Will No November 22, 2017 1 0:18am Power of Emergency Response Officer No November 22, 2017 10:18am Advance Directive Response Recorded Date/ Time Living Will No November 22, 2017 1 1:18am Power of Emergency Response Officer No November 22, 2017 11:18am Chief Complaint and Reason for Visit Chief Complaint SCREENING Chief Complaint Admit Date NEW WEIGHT MANAGEMENT (ok per AW) February 06, 2025 1:10pm Reason for Visit Admit Date Overweight (BMI 25.0-29.9) February 06 025 1:10pm Post-menopausal February 06, 2025 1:1 0pm Summary Purpose Family History No Family History Records Found Relationship Condition Age at Onset Recorded Date/T gin father Alcoholism Unknown mother Diabetes mellitus Unknown Hypertension Unknown High blood cholesterol Unknown Additional Source Comments Source Comments (unrecognize d section and content) In the event this informatio n is protected by the Federal Confidentiality of Alcohol and Drug Abuse Patient Records regulations: The Federal rules restrict any use of the information to criminally investigate or prosecute any alcohol or drug abuse patient.[facility] the event this information is protected by the Federal Confidentiality of Alcohol and Drug Abuse Patient Records regulations: The Federal rules restrict any use of the information to criminally investigate or prosecute any alcohol or drug abuse patient.[facility] HospitalIn the event this information is protected by the Federal Confidentiality of Alcohol and Drug Abuse Patient Records regulations: The Federal rules restrict any use of the information to criminally investigate or prosecute any alcohol or drug abuse patient.[facility] HospitalIn the event this information is protected by the Federal Confidentiality of Alcohol and Drug Abuse Patient Records regulations: The Federal rules restrict any use of the information to criminally investigate or prosecute any alcohol or drug abuse patient.[facility] HospitalIn the event this information is protected by the Federal Confidentiality of Alcohol and Drug Abuse Patient Records regulations: The Federal rules restrict any use of the information to criminally investigate or prosecute any alcohol or drug abuse patient.[facility] HospitalIn the event this information is protected by the Federal Confidentiality of Alcohol and Drug Abuse Patient Records regulations: The Federal rules restrict any use of the information to criminally investigate or prosecute any alcohol or drug abuse patient.[facility] Hospital[facility] the event this information is protected by the Federal Confidentiality of Alcohol and Drug Abuse Patient Records regulations: The Federal rules restrict any use of the information to criminally investigate or prosecute any alcohol or drug abuse patient.[facility] HospitalIn the event this information is protected by the Federal Confidentiality of Alcohol and Drug Abuse Patient Records regulations: The Federal rules restrict any use of the information to criminally investigate or prosecute any alcohol or drug abuse patient.[facility] Reason for Visit (unrecogniz ed section and content) Reason Comments Sore Throat With fever x 1 day Reason Comments Head Congestion sinus pressure, drai nage, bodyaches, sore throat and fever x 2 days Reason Comments Sore Throat With cough, chest co ngestion x 1 wk Reason Comments Flu Like Symptoms Fever, body aches, s inus drainage, cough, x 4 days Reason Comments Results Care Teams (unrecognized sec tion and content) Magnetizer Relationship Specialty Start Date End Date Ruddy Phelps DO PCP - General Genetics 05/16/11 Team Status: Active Member Role Status Dates Dr. Ruddy Phelps DO Family Provider Active Andrea Tapia PATIENT CARE ASSOCIATE, PATIENT CARE ASSOCIATE-C Primary Care Provider Active Team Status: Inactive Member Role Status Dates Andrea Tapia PATIENT CARE ASSOCIATE, PATIENT CARE ASSOCIATE-C Primary Care Provider, Attending Provider, Referring Provider Active Magnetizer Relationship Specialty Start Date End Date Andrea Tapia, LUIS MIGUEL [address] [facility] [place] [address] PCP - General Family Medicine 03/15/23 Magnetizer Relationship Specialty Start Date End Date Andrea Tapia, LUIS MIGUEL [address] [facility] [place] [address] PCP - General Family Medicine 03/15/23 Magnetizer Relationship Specialty Start Date End Date Andrea Tapia, LUIS MIGUEL [address] [facility] [place] [address] PCP - General Family Medicine 03/15/23 Magnetizer Relationship Specialty Start Date End Date Andrea Tapia, PROFESSOR OF FOOD BIOCHEMISTRY [address] [facility] [place] [address] PCP - General Family Medicine 03/15/23 Magnetizer Relationship Specialty Start Date End Date Andrea Tapia, PROFESSOR OF FOOD BIOCHEMISTRY [address] [facility] [place] [address] PCP - General Family Medicine 03/15/23 Magnetizer Relationship Specialty Start Date End Date Andrea Tapia, PROFESSOR OF FOOD BIOCHEMISTRY [address] [facility] [place], [place] [address] PCP - General Family Medicine 03/15/23 Team Status: Active Member Role/Relationship Status Dates Dr. uRddy Phelps , DO Family Provider Active Andrea Tapia PATIENT CARE ASSOCIATE, PATIENT CARE ASSOCIATE-C Primary Care Provider Active Team Status: Inactive Member Role/Relationship Status Dates Andrea Tapia NP, PATIENT CARE ASSOCIATE-C Primary Care Provider Active Start: February 06, 2025 End: February 06, 2025 Andrea Tapia NP, PATIENT CARE ASSOCIATE-C Referring Provider Ac tive Start: February 06, 2025 End: February 06, 2025 Monet Villalobos NP-Donaldo Attending Provider Active Start: February 06, 2025 End: February 06, 2025 Goals (unrecognized section and content) Goals may be documented in a n alternate sectionGoals may be documented in an alternate sectionGoals may be documented in an alternate sectionGoals may be documented in an alternate section INFORMATION SOURCE (unrecogn ized section and content) DATE CREATED AUTHOR 07/22/2024 [facility] DATE CREATED AUTHOR 'S COLTEN GONZALEZ 02/21/2025 [facility] FOR RECORDS PERTAINING TO PATIENTS WHO ARE OR HAVE BEEN ENROLLED IN A CHEMICAL DEPENDENCY/SUBSTANCEABUSE PROGRAM, SOME INFORMATION MAY BE OMITTED. This clinical summary was aggregated from multiple sources. Caution should be exercised in using it in the provision of clinical care. This summary normalizes information from multiple sources, and as a consequence, information in this document may materially change the coding, format and clinical context of patient data. In addition, data may be omitted in some cases. CLINICAL DECISIONS SHOULD BE BASED ON THE PRIMARY CLINICAL RECORDS. [employer] [facility]. provides no warranty or guarantee of the accuracy or completeness of information in this document.
[2025-02-21 08:11] LABS: Hematocrit 40.6 % (37-47); Hemoglobin 13.7 g/dL (12.0-15.0); Immature Granulocytes Count 0.020 X10^3/uL (0.0-0.0); Mean Corp Hgb Conc 33.7 g/dL (32-36); Mean Corpuscular Volume 93.1 fL (81-99); Mean Platelet Vol. 10.4 fl (6.2-12.0); NRBC Flagged by Analyzer 0 % (0-5); Platelet Count 438 K/mm3 (150-450); RBC Distribution Width CV 12.7 % (11.6-14.6); RBC Distribution Width SD 43.9 fl (35.1-43.9); Red Blood Count 4.36 M/mm3 (4.2-5.4); White Blood Count 8.1 K/mm3 (4.4-11.0)
[2025-02-21 09:11] LABS: AST(SGOT) 27 U/L (<=31); Alanine Aminotransfer ALT/SGPT 32 U/L (<=34); Albumin, Serum 4.2 g/dL (3.5-5.0); Alkaline Phosphatase 71 U/L (35-104); Anion Gap 12 (5-15); BUN 22 mg/dL (4-19); BUN/Creat Ratio 32.3 RATIO (10-20); Calcium,Total 9.1 mg/dL (7.6-11.0); Carbon Dioxide 24.0 mmol/L (21.0-32.0); Chloride 103 mmol/L (98-108); Cholesterol 222 mg/dL (<=200); Globulin 2.7 g/dL (2.2-4.2); Glucose 110 mg/dL (70-99); Low Density Lipoprotein Calc. 139 mg/dL; Potassium 4.3 mmol/L (3.3-5.1); Triglycerides 133 mg/dL; Very Low Density Lipoprotein 27 mg/dL (5-40); Vitamin D,25 Hydroxy 36.9 ng/mL (30-100); cholesterol:hdl ratio screen 3.94
== END | disposition home or self-care (01) ==
PROVIDERS: PCP Family Medicine; Referring Provider Nurse Practitioner Family; Visit Provider Nurse Practitioner Family
DX: E66.3 Overweight (principal); Z78.0 Asymptomatic menopausal state; Z13.1 Encounter for screening for diabetes mellitus; Z13.220 Encounter for screening for lipoid disorders; Z13.21 Encounter for screening for nutritional disorder; Z13.29 Encounter for screening for other suspected endocrine disorder
CPT/HCPCS: 36415; 80053; 80061; 82306; 83036; 84439; 84443; 85025

== ENCOUNTER → 2025-02-26 | Outpatient (CLI) | payer BC, SELFPAY ==
--- NOTE | 2025-02-26 07:00 | EKG12_ITS ---
Test Reason : MED ASSESS Blood Pressure : */* mmHG Vent. Rate : 66 BPM Atrial Rate : 66 BPM P-R Int : 144 ms QRS Dur : 98 ms QT Int : 420 ms P-R-T Axes : 44 80 58 degrees QTcB Int : 440 ms Normal sinus rhythm Normal ECG Confirmed by POPEYE LAGUNA ([id number]), subeditor JHON RAMIRES ([id number]) on 02/26/2025 1:48:44 PM Referred By: Tari Jaime Confirmed By: POPEYE LAGUNA
--- OUTSIDE RECORDS SUMMARY | 2025-02-26 07:09 | XMS RPT_ITS | CCD ---
Author Organization [facility] Care Team Providers Care Metal Patternmaker Name Role Phone Ruddy Phelps DO Primary Care Provider Aure vailable Andrea Tapia CNP Primary Care Provider Andrea Tapia CNP Primary Care Provider ANDREA TAPIA Primary Care Unavailable ANDREA TAPIA Primary Care Unavailable MARYA MCDERMOTT Referring Unavailable ANDREA TAPIA Primary Care Unavailable ANDREA TAPIA Primary Care Unavailable Willie MANAGER BABY-C, Andrea Diggs Primary Care Provi layla Willie MANAGER BABY-CAndrea Referring Provider Griselda MANAGER BABY-C, Monet Attending Provider [place] MANAGER BABY, Andrea Diggs Primary Care Unav ailable Willie MANAGER BABY, Andrea Diggs Referring Unav ailable Tari Jaime Attending Unavailable Monet Villalobos Attending Unavailable Willie MANAGER BABY, Andrea Diggs Referring Unav ailable [place] MANAGER BABY, Andrea Diggs Primary Care Unav ailable Monet Villalobos Attending Unavailable [place] MANAGER BABY, Andrea Diggs Primary Care Unav ailable Willie MANAGER BABY, Andrea Diggs Referring Unav ailable [place] MANAGER BABY, Andrea Diggs Primary Care Unav ailable Salena Robins Attending Unavailable Monet Villalobos Attending Unavailable Beto Nevarez Primary Care Unavailable Monet Villalobos Referring Unavailable [place] MANAGER BABY, Andrea Diggs Referring Unav ailable Salena Robins Attending Unavailable Willie MANAGER BABY, Andrea Diggs Primary Care Unav ailable Roof MANAGER BABY, Robi Mcdermott Attending Unavailable [place] MANAGER BABY, Andrea Diggs Referring Unav ailable Willie MANAGER BABY, Andrea Diggs Primary Care Unav ailable Mnoet Villalobos Attending Unavailable Willie MANAGER BABY, Andrea Dontae Primary Care Unav ailable Willie SLADE, Andrea Diggs Referring Unav ailable Allergies Allergy Classification Reported Allergen(s) Allergy Type Date of Onset Reaction(s) Facility (9 sources) Multivitamin Additive; Translations: [MULTIVITAMIN ADDITIVE] Drug Intolerance 2 Rash [facility] Work Phone: Medications Current Medications Medication Drug Class(es) Dates Sig (Normalized) Sig (Original) acetaminophen 250 mg / aspirin 250 mg / caffeine 65 mg oral tablet (4 sources) Platelet Aggregation Inhibitor, Nonsteroidal Anti-inflammatory Drug, Central Nervous System Stimulant, Methylxanthine Start: 11-22-2017 Aspirin-Acetamin ophen-Caffeine (Excedrin Extra Strength Caplet) 1 EACH tablet Active 1 NMA PO NEEDED as needed for Pain November 22, 2017 12:00am [id number] 200 actuat albuterol 0.09 mg/actuat metered dose [...] Comment on above: Take 1 capsule by [facility] three times a day as needed for [...] tablet by dario two times a day for 7 days. [...] on above: Take 1 tablet by dario once daily. FLUoxetine 20 mg oral tablet [...] 25-29 - overweight; Translations: [Overweight] 08-21-2024 Episodic Other nutritional; endocrine; and metabolic disorders (2 sources) Overweight; Translations: [Overweight] Onset: 09-05-2024 Episodic Other screening for suspected conditions (not mental disorders or infectious disease) (17 sources) Thyroid function tests abnormal; Translations: [Other specified abnormal findings of blood chemistry] Onset: 04-10-2012 04-10-2012 Episodic Residual codes; unclassified (2 sources) Postmenopausal state; Translations: [Asymptomatic menopausal state] 08-21-2024 Episodic Residual codes; unclassified (2 sources) Asymptomatic menopausal state; Translations: [Asymptomatic menopausal state] Onset: 09-05-2024 Episodic Unclassified (1 source) Acute cough; Translations: [Acute cough] Onset: 08-01-2023 Viral infection (1 source) Viral disease; Translations: [Viral infection, unspecified] 08-03-2023 Episodic Past or Other Problems Problem Classification Problem Date Documented Da te Episodic/Chronic Malaise and fatigue (8 sources) Fatigue; Translations: [Other fatigue] Onset: 04-10-2012 04-10-2012 Episodic Other upper respiratory infections (6 sources) Viral upper respiratory tract infection; Translations: [Acute upper respiratory infection, unspecified] Onset: 07-29-2024 Episodic Results Test Name Value Interpretation Reference Range Facility CBC W/Diff, Automatedon 02-01 Absolute Lymph 3.15 X10 3/uL Normal 0.83-4.51 [facility] Comment on above: Performed By: #### L 506.1001, L501.9985, L100.0100, L500.4100, L500.4050, L501.9520, L506.0400 #### [facility] [address] [place], [address] Absolute Neut 3.9 X10 3/uL Normal 2.0-7.7 [facility] Comment on above: Performed By: #### L 506.1001, L501.9985, L100.0100, L500.4100, L500.4050, L501.9520, L506.0400 #### [facility] [address] [place], [address] Basophils/100 WBC (Bld) 1.1 % High 0-1 [facility] Comment on above: Performed By: #### L 506.1001, L501.9985, L100.0100, L500.4100, L500.4050, L501.9520, L506.0400 #### [facility] [address] [place], [address] Eosinophils/100 WBC (Bld) 3.1 % Normal 0-5 [facility] Comment on above: Performed By: #### L 506.1001, L501.9985, L100.0100, L500.4100, L500.4050, L501.9520, L506.0400 #### [facility] [address] [place], [address] Erythrocyte distribution width (RBC) [Ratio] 12.7 % Normal 11.6-14.6 [facility] Comment on above: Performed By: #### L 506.1001, L501.9985, L100.0100, L500.4100, L500.4050, L501.9520, L506.0400 #### [facility] [address] [place], [address] Hematocrit (Bld) [Volume fraction] 40.6 % Normal 37-47 [facility] Comment on above: Performed By: #### L 506.1001, L501.9985, L100.0100, L500.4100, L500.4050, L501.9520, L506.0400 #### [facility] [address] [place], [address] Hemoglobin (Bld) [Mass/Vol] 13.7 g/dL Normal 12.0-15.0 [facility] Comment on above: Performed By: #### L 506.1001, L501.9985, L100.0100, L500.4100, L500.4050, L501.9520, L506.0400 #### [facility] [address] [place], [address] IG% 0.200 Normal 0.0-0.9 [facility] Comment on above: Result Comment: IG% - Immature Granulocytes (promyelocytes, myelocytes and metamyelocytes) > 1% indicates that a LEFT SHIFT is Present. Performed By: #### L 506.1001, L501.9985, L100.0100, L500.4100, L500.4050, L501.9520, L506.0400 #### [facility] [address] [place], [address] Lymphocytes/100 WBC (Bld) 39.1 % Normal 19-41 [facility] Comment on above: Performed By: #### L 506.1001, L501.9985, L100.0100, L500.4100, L500.4050, L501.9520, L506.0400 #### [facility] [address] [place], [address] MCH (RBC) [Entitic mass] 31.4 pg Normal 27.0-32.0 [facility] Comment on above: Performed By: #### L 506.1001, L501.9985, L100.0100, L500.4100, L500.4050, L501.9520, L506.0400 #### [facility] [address] [place], [address] MCHC (RBC) [Mass/Vol] 33.7 g/dL Normal 32-36 [facility] Comment on above: Performed By: #### L 506.1001, L501.9985, L100.0100, L500.4100, L500.4050, L501.9520, L506.0400 #### [facility] [address] [place], [address] MCV (RBC) [Entitic vol] 93.1 fL Normal 81-99 [facility] Comment on above: Performed By: #### L 506.1001, L501.9985, L100.0100, L500.4100, L500.4050, L501.9520, L506.0400 #### [facility] [address] [place], [address] Monocytes/100 WBC (Bld) 8.0 % Normal 0-10 [facility] Comment on above: Performed By: #### L 506.1001, L501.9985, L100.0100, L500.4100, L500.4050, L501.9520, L506.0400 #### [facility] [address] [place], [address] Neutrophils/100 WBC (Bld) 48.5 % Normal 47-70 [facility] Comment on above: Performed By: #### L 506.1001, L501.9985, L100.0100, L500.4100, L500.4050, L501.9520, L506.0400 #### [facility] [address] [place], [address] Nucleated RBC (Bld) [#/Vol] 0 10*3/uL Normal 0-5 [facility] Comment on above: Performed By: #### L 506.1001, L501.9985, L100.0100, L500.4100, L500.4050, L501.9520, L506.0400 #### [facility] [address] [place], [address] Platelet mean volume (Bld) [Entitic vol] 10.4 fL Normal 6.2-12.0 [facility] Comment on above: Performed By: #### L 506.1001, L501.9985, L100.0100, L500.4100, L500.4050, L501.9520, L506.0400 #### [facility] [address] [place], [address] Platelets (Bld) [#/Vol] 438 10*3/uL Normal 150-450 [facility] Comment on above: Performed By: #### L 506.1001, L501.9985, L100.0100, L500.4100, L500.4050, L501.9520, L506.0400 #### [facility] [address] [place], [address] RBC (Bld) [#/Vol] 4.36 10*6/uL Normal 4.2-5.4 [facility] Comment on above: Performed By: #### L 506.1001, L501.9985, L100.0100, L500.4100, L500.4050, L501.9520, L506.0400 #### [facility] [address] [place], [address] RDW SD 43.9 fl Normal 35.1-43.9 [facility] Comment on above: Performed By: #### L 506.1001, L501.9985, L100.0100, L500.4100, L500.4050, L501.9520, L506.0400 #### [facility] [address] [place], [address] WBC (Bld) [#/Vol] 8.1 10*3/uL Normal 4.4-11.0 [facility] Comment on above: Performed By: #### L 506.1001, L501.9985, L100.0100, L500.4100, L500.4050, L501.9520, L506.0400 #### [facility] [address] [place], [address] Comprehensive Metabolic Prof [facility] 02-21-2025 Albumin [Mass/Vol] 4.2 g/dL Normal 3.5-5.0 [facility] Comment on above: Performed By: #### L 506.1001, L501.9985, L100.0100, L500.4100, L500.4050, L501.9520, L506.0400 #### [facility] [address] [place], [address] Albumin/Globulin [Mass ratio] 1.6 {ratio} Normal 0.9-2.4 [facility] Comment on above: Performed By: #### L 506.1001, L501.9985, L100.0100, L500.4100, L500.4050, L501.9520, L506.0400 #### [facility] [address] [place], [address] ALK PHOS 71 U/L Normal 35-104 [facility] Comment on above: Performed By: #### L 506.1001, L501.9985, L100.0100, L500.4100, L500.4050, L501.9520, L506.0400 #### [facility] [address] [place], [place], [address] ALT [Catalytic activity/Vol] 32 U/L Normal <=34 [facility] Comment on above: Performed By: #### L 506.1001, L501.9985, L100.0100, L500.4100, L500.4050, L501.9520, L506.0400 #### [facility] [address] [place], [place], [address] AST [Catalytic activity/Vol] 27 U/L Normal <=31 [facility] Comment on above: Performed By: #### L 506.1001, L501.9985, L100.0100, L500.4100, L500.4050, L501.9520, L506.0400 #### [facility] [address] [place], [place], [address] Bilirubin [Mass/Vol] 0.43 mg/dL Normal 0.00-1.30 [facility] Comment on above: Performed By: #### L 506.1001, L501.9985, L100.0100, L500.4100, L500.4050, L501.9520, L506.0400 #### [facility] [address] [place], [address] BUN/CRE 32.3 RATIO High 10-20 [facility] Comment on above: Performed By: #### L 506.1001, L501.9985, L100.0100, L500.4100, L500.4050, L501.9520, L506.0400 #### [facility] [address] [place], [address] Calcium [Mass/Vol] 9.1 mg/dL Normal 7.6-11.0 [facility] Comment on above: Performed By: #### L 506.1001, L501.9985, L100.0100, L500.4100, L500.4050, L501.9520, L506.0400 #### [facility] [address] [place], [address] Chloride [Moles/Vol] 103 mmol/L Normal 98-108 [facility] Comment on above: Performed By: #### L 506.1001, L501.9985, L100.0100, L500.4100, L500.4050, L501.9520, L506.0400 #### [facility] [address] [place], [address] CO2 [Moles/Vol] 24.0 mmol/L Normal 21.0-32.0 [facility] Comment on above: Performed By: #### L 506.1001, L501.9985, L100.0100, L500.4100, L500.4050, L501.9520, L506.0400 #### [facility] [address] [place], [address] Creatinine [Mass/Vol] 0.67 mg/dL Low 0.70-1.20 [facility] Comment on above: Performed By: #### L 506.1001, L501.9985, L100.0100, L500.4100, L500.4050, L501.9520, L506.0400 #### [facility] [address] [place], [address] GAP 12 Normal 5-15 [facility] Comment on above: Performed By: #### L 506.1001, L501.9985, L100.0100, L500.4100, L500.4050, L501.9520, L506.0400 #### [facility] [address] [place], [address] GFR/1.73 sq M.predicted among non-blacks MDRD (S/P/Bld) [Vol rate/Area] 101 mL/min/{1.73_m2} Normal >60 [facility] Comment on above: Result Comment: mL/m in/1.73m2 CKD-EPI Creatinine Equation (2020) Performed By: #### L 506.1001, L501.9985, L100.0100, L500.4100, L500.4050, L501.9520, L506.0400 #### [facility] [address] [place], [address] Globulin (S) [Mass/Vol] 2.7 g/dL Normal 2.2-4.2 [facility] Comment on above: Performed By: #### L 506.1001, L501.9985, L100.0100, L500.4100, L500.4050, L501.9520, L506.0400 #### [facility] [address] [place], [address] Glucose [Mass/Vol] 110 mg/dL High 70-99 [facility] Comment on above: Performed By: #### L 506.1001, L501.9985, L100.0100, L500.4100, L500.4050, L501.9520, L506.0400 #### [facility] [address] [place], [address] Potassium [Moles/Vol] 4.3 mmol/L Normal 3.3-5.1 [facility] Comment on above: Performed By: #### L 506.1001, L501.9985, L100.0100, L500.4100, L500.4050, L501.9520, L506.0400 #### [facility] [address] [place], [address] Sodium [Moles/Vol] 140 mmol/L Normal 133-145 [facility] Comment on above: Performed By: #### L 506.1001, L501.9985, L100.0100, L500.4100, L500.4050, L501.9520, L506.0400 #### [facility] [address] [place], [address] T PROT 6.9 g/dL Normal 5.9-8.4 [facility] Comment on above: Performed By: #### L 506.1001, L501.9985, L100.0100, L500.4100, L500.4050, L501.9520, L506.0400 #### [facility] [address] [place], [address] Urea nitrogen [Mass/Vol] 22 mg/dL High - [facility] Comment on above: Performed By: #### L 506.1001, L501.9985, L100.0100, L500.4100, L500.4050, L501.9520, L506.0400 #### [facility] [address] [place], [address] Hemoglobin A1con 02-21-2025 HbA1c (Bld) [Mass fraction] 6.1 % High <=5.6 [facility] Comment on above: Result Comment: Norm al < 5.7 % Prediabetic 5.7 - 6.4 % Diabetic >or= 6.5 % Please note range changes. Performed By: #### L 506.1001, L501.9985, L100.0100, L500.4100, L500.4050, L501.9520, L506.0400 #### [facility] [address] [place], [address] Lipid Profileon 02-21-2025 CHOL:HDL 3.[address] [facility] Comment on above: Performed By: #### L 506.1001, L501.9985, L100.0100, L500.4100, L500.4050, L501.9520, L506.0400 #### [facility] [address] [place], [address] Cholesterol [Mass/Vol] 222 mg/dL High <=200 [facility] Comment on above: Result Comment: Chol esterol level, Desirable <200 mg/dL Borderline high cholesterol 200-239 mg/dL High cholesterol >=240 mg/dL Recommendations of the NCEP Adult Treatment Panel for the following risk-cutoff thresholds for the [place] population. Performed By: #### L 506.1001, L501.9985, L100.0100, L500.4100, L500.4050, L501.9520, L506.0400 #### [facility] [address] [place], [address] Cholesterol in HDL [Mass/Vol] 56 mg/dL Normal [facility] Comment on above: Result Comment: Molly onal Cholesterol Education Program (NCEP) guidelines: <40 mg/dL: Low HDL-cholesterol (major risk factor for CHD) >= 60 mg/dL: High HDL-cholesterol (negative risk factor for CHD) HDL-cholesterol is affected by a number of factors, e.g. smoking, exercise, hormones, sex and age. Performed By: #### L 506.1001, L501.9985, L100.0100, L500.4100, L500.4050, L501.9520, L506.0400 #### [facility] [address] [place], [address] Cholesterol in LDL [Mass/Vol] 139 mg/dL Normal [facility] Comment on above: Result Comment: Bord qzstuv=240-973 mg/dL Higher Fyoj=191 mg/dL or greater Friedwald Equation for LDL-C Performed By: #### L 506.1001, L501.9985, L100.0100, L500.4100, L500.4050, L501.9520, L506.0400 #### [facility] [address] [place], [address] Cholesterol in VLDL [Mass/Vol] 27 mg/dL Normal 5-40 [facility] Comment on above: Performed By: #### L 506.1001, L501.9985, L100.0100, L500.4100, L500.4050, L501.9520, L506.0400 #### [facility] [address] [place], [address] Triglyceride [Mass/Vol] 133 mg/dL Normal [facility] Comment on above: Result Comment: The drugs N-Acetylcysteine and Metamizole may falsely depress this assay. Normal range: <150 mg/dL Borderline High: 150-199 mg/dL High: 200-499 mg/dL Very High: >500 mg/dL Performed By: #### L 506.1001, L501.9985, L100.0100, L500.4100, L500.4050, L501.9520, L506.0400 #### [facility] [address] [place], [address] T4 Free Directon 02-21-2025 T4 FREE DIRECT 1.00 ng/dL Normal 0.76-1.46 [facility] Comment on above: Performed By: #### L 506.1001, L501.9985, L100.0100, L500.4100, L500.4050, L501.9520, L506.0400 #### [facility] [address] [place], [address] Thyroid Stim Hormone (TSH)on 02-21-2025 TSH 1.850 uIU/mL Normal 0.300-4.200 [facility] Comment on above: Performed By: #### L 506.1001, L501.9985, L100.0100, L500.4100, L500.4050, L501.9520, L506.0400 #### [facility] [address] [place], [address] Vitamin D,25 Hydroxyon 02-21 Vitamin D 25-OH 36.9 ng/mL Normal 30-100 [facility] Comment on above: Result Comment: Jeri min D Status Deficiency: <20 ng/mL (50nmol/L) Insufficiency: 20-30 ng/mL (50-75 nmol/L) Sufficiency: 30-100 ng/mL (75-250 nmol/L) Toxicity: >100 ng/mL (>250 nmol/L) Performed By: #### L 506.1001, L501.9985, L100.0100, L500.4100, L500.4050, L501.9520, L506.0400 ####[facility] [address] [place], [address] Sales Training Coordinator Office Visit Reporton 02-06-2025 Sales Training Coordinator Office Visit Report [facility], [address] [place] [address] OFFICE VISIT Date of Service: 02/06/25 MR#: [id number] Acct: [id number] Name: TOMEKA ALEXANDRE Rep #: [id number] : 1965 Provider: DAMIEN Leigh Age/Sex: 59/F [place] [facility] [place] Status: Signed Intake Vital Signs 08/21/24 08:14 01/31/25 08:41 02/06/25 13:17 Height 5 ft 6 in 5 ft 6 in 5 ft 6 in Weight: 161 lb 174 lb 9 oz BMI 25.9 28.1 BP 114/77 142/76 H Pulse 72 Intake Visit Reasons: NEW WEIGHT MANAGEMENT (ok per AW) Greens Tier Required: No Is patient in pain?: No [...] 2 current occupational status: employed current occupation: [employer] pets and animals: Yes pets and [...] in: yoga frequency: 3-4 times per week yola/anabaptist: Mormonism seatbelt use: always do you feel safe at home: Yes additional social history: - Yossi HPI NEW WEIGHT MANAGEMENT (ok per AW) Details: [...] to auscult (more content not included)... Normal [facility] Sales Training Coordinator Office Visit Reporton 08-21-2024 Sales Training Coordinator Office Visit Report [facility] [address] [place] [address], [address] [place] [address] OFFICE VISIT Date of Service: 08/21/24 MR#: [id number] Acct: [id number] Name: TOMEKA ALEXANDRE Rep #: [id number] : 1965 Provider: DAMIEN Leigh Age/Sex: 58/F [place] [facility] [place] Status: Signed Intake Vital Signs 08/07/24 11:01 08/21/24 08:14 Height 5 ft 6 in 5 ft 6 in Weight: 161 lb BMI 25.9 BP 114/77 Intake Visit Reasons: HRT Greens Tier Required: No Is patient in pain?: No [...] 2 current occupational status: employed current occupation: [employer] pets and animals: Yes pets and [...] in: yoga frequency: 3-4 times per week yola/anabaptist: Mormonism seatbelt use: always do you feel safe at home: Yes additional social history: - Yossi ALVARADO HRT Details: TOMEKA ALEXANDRE is a 58 [...] WM program--currently on compounded semaglutide--prescrib ed elsewhere. 08/21/24929 Date Monet Villalobos MANAGER BABY-C Cosigner Signature: Date (if applicable) CC: Normal [facility] PAP IG HPV APTIMA 16/18,45on 08-13-2024 ADEQ Comment Normal . [facility] Comment on above: Order Comment: Speci men Comment: [id number] Specimen Comment: Source.............Cervix Specimen Comment: Other..............Post Menopausal Specimen Comment: No. of containers..01 ThinPrep Vial Result Comment: Sati sfactory for evaluation. Endocervical and/or squamous metaplastic cells (endocervical component) are present. Performed By: #### L 7400.0280 #### [facility] [address] [place], [address] Normal [address] [facility] Comment on above: Order Comment: Speci men Comment: [id number] Specimen Comment: Source.............Cervix Specimen Comment: Other..............Post Menopausal Specimen Comment: No. of containers..01 ThinPrep Vial Performed By: #### L 7400.0280 #### [facility] [address] [place], [place], [address] COMMENT Comment Normal . [facility] Comment on above: Order Comment: Speci men Comment: [id number] Specimen Comment: Source.............Cervix Specimen Comment: Other..............Post Menopausal Specimen Comment: No. of containers..01 ThinPrep Vial Result Comment: This liquid based ThinPrep(R) pap test was screened with the use of an image guided system. Performed By: #### L 7400.0280 #### [facility] [address] [place], [place], [address] DIAG Comment Normal . [facility] Comment on above: Order Comment: Speci men Comment: [id number] Specimen Comment: Source.............Cervix Specimen Comment: Other..............Post Menopausal Specimen Comment: No. of containers..01 ThinPrep Vial Result Comment: NEGA TIVE FOR INTRAEPITHELIAL LESION OR MALIGNANCY. Performed By: #### L 7400.0280 #### [facility] [address] [place], [place], [address] HPV APTIMA, HR Negative Normal Negative [facility] Comment on above: Order Comment: Speci men Comment: [id number] Specimen Comment: Source.............Cervix Specimen Comment: Other..............Post Menopausal Specimen Comment: No. of containers..01 ThinPrep Vial Result Comment: This nucleic acid amplification test detects fourteen high- risk HPV types (16,18,31,33,35,39,45,51,52,56,58,59,66,68) without differentiation. Performed By: #### L 7400.0280 #### [facility] [address] [place], [place], [id number] HPV Lynn Rfx Comment Normal . [facility] Comment on above: Order Comment: Speci men Comment: [id number] Specimen Comment: Source.............Cervix Specimen Comment: Other..............Post Menopausal Specimen Comment: No. of containers..01 ThinPrep Vial Result Comment: Crit eria not met, HPV Genotype not performed. Performed at: - [address] [id number] Certified Teacher Assistant: Sultana Dela Cruz MD, Phone: [phone] Performed at: = - [facility] [id number] Certified Teacher Assistant: Sultana Dela Cruz MD, Phone: [phone] Performed By: #### L 7400.0280 #### [facility] [address] [place], [address] PAPSMR Comment Normal . [facility] Comment on above: Order Comment: Speci men Comment: [id number] Specimen Comment: Source.............Cervix Specimen Comment: Other..............Post Menopausal [...] occur. Performed By: #### L 7400.0280 #### [facility] [address] [place], [place], [id number] PERFORM Comment Normal . [facility] Comment on above: Order Comment: Speci men Comment: [id number] Specimen Comment: Source.............Cervix Specimen Comment: Other..............Post Menopausal Specimen Comment: No. of containers..01 ThinPrep Vial Result Comment: Yas Mayberry, Food Tr[employer] Assistants (ASCP) Performed By: #### L 7400.0280 #### [facility] [address] [place], [place], [id number] Sales Training Coordinator Office Visit Reporton 08-07-2024 Sales Training Coordinator Office Visit Report [facility] [address] [place] [address], [address] [place] [address] OFFICE VISIT Date of Service: 08/07/24 MR#: [id number] Acct: [id number] Name: TOMEKA ALEXANDRE Rep #: [id number] : 1965 Provider: DONOVAN Batista ams Age/Sex: 58/F [place] [facility] [place] [place]: Signed Intake Vital Signs 11/24/17 06:38 07/21/24 08:58 08/07/24 10:51 08/07/24 11:01 Height 5 ft 6 in 5 ft 6 in 5 ft 6 in 5 ft 6 in Weight: 160 lb BMI 25.8 BP 116/74 Intake Visit Reasons: Annual (CIGARETTE TIPPER) Greens Tier Required: No Is patient in pain?: No [...] No : No Current gender identity: female PFSH Medical History (Updated 08/07/24 @ 11:01 by [...] 2 current occupational status: employed current occupation: [employer] pets and animals: Yes pets and [...] in: yoga frequency: 3-4 times per week yola/anabaptist: Mormonism seatbelt use: always do you feel safe [...] History of abnormal mammogram: no Colon cancer screenin/18- Other preventative health care screenings: PCP Female [...] normal ext (more content not included)... Normal [facility] 07-21-2024 CNPN Telephone ([facility]) TOMEKA ALEXANDRE ([id number]) 1965 F Date Time Provider Department 07/21/24 MARYA MCDERMOTT [facility] During your visit today, we recorded the following information about you: Marya Mcdermott APRN.[facility] 07/21/2024 8:08 AM Signed You tested negative for COVID, Influenza, and RSV. Please contact us if your symptoms are worsening or not improving. Please advise Marya Mcdermott APRN.LOCK TENDER CHIEF OPERATOR 07/21/2024 8:29 AM Signed Attempted to call [...] Status:Closed by ROHINI MILLER on 07/22/24 Normal [facility] Urgent Care Visit Reporton 0 07-21-2024 Urgent Care Visit Report [facility] [address] [facility], [address] [place] [address] OFFICE VISIT Date of Service: 07/21/24 MR#: [id number] Acct: [id number] Name: TOMEKA ALEXANDRE Rep #: [id number] : 1965 Provider: [facility] Self Schedule Age/Sex: 58/F [place] [facility] [place] Status: Signed Intake Vital Signs 11/24/17 06:38 [...] Q8H PRN PRN Pain 11/22/17 07/21/24 History (Aleve) amoxicillin 500 mg tablet 500 mg PO [...] distress Orientation: alert, awake and oriented x3 HENMT Head: normal to inspection and normocephalic Ears: [...] Speech: s (more content not included)... Normal [facility] CNOVon 07-20-2024 CNOV Office Visit ([facility] ) TOMEKA ALEXANDRE ([id number]) 1965 F Date Time Provider Department 1/18/25 9:45 AM RADHA SULTANA [facility] During your visit today, we recorded the following information about you: Temperature Pulse Respiration Blood pressure 99.4 degrees 93/minute 18/minute 110/71 Weight 75 kg Radha Sultana APRN.LOCK TENDER CHIEF OPERATOR 07/20/2024 10:17 AM Signed Subjective HPI Tomeka [...] analgesia. - Discussed expected course of illness TRUDY Melgoza Kathy, APRN.CNP 07/20/2024 10:17 AM Signed ASSESSMENT/PLAN: 1. Sore [...] prn an (more content not included)... Normal [facility] COVID AND INFLUENZA A/B AND RSV PCR, ROUTINEon 07-20-2024 SARS-CoV-2 (COVID-19) RNA IVAN+probe Ql (Unsp spec) SARS-COV-2 (AGENT OF COVID-19) RNA: Not detected INFLUENZA A RNA: Not detected INFLUENZA B RNA: Not detected RESPIRATORY SYNCYTIAL VIRUS (RSV) RNA: Not detected Normal [facility] Comment on above: Performed By: #### C VFLRS #### [facility] CLIA [id number] [address] [place] [address] [place] STREP A MOLECULAR (POC)on Procedural Control Valid [facility] Strep A (POCT) Negative Negative [facility] Absolute lymphocyte countOrd ered By: Andrea Tapia on 10-10-2023 Lymphocytes Auto (Unsp spec) [#/Vol] 3.07 10*3/uL 0.83-4.51 [facility] Automated lymphocyte count a s percentage of total leukocytesOrdered By: Andrea Tapia on 10-10-2023 Lymphocytes/100 WBC Auto (Unsp spec) 35.3 % 19-41 [facility] Basophil percentageOrdered B y: Andrea Tapia on 10-10-2023 Basophils/100 WBC (Bld) 1.0 % 0-1 [facility] Bilirubin [Mass/Vol] 0.30 mg/dL 0.20-1.00 [facility] Comment on above: For patients on eltr ombopag therapy, use of Dimension [place] TBIL is not recommended. Chloride [Moles/Vol] 105 mmol/L 98-107 [facility] Cholesterol [Mass/Vol] 258 mg/dL <200 [facility] Comment on above: <200 mg/dL Desirable 200-240 mg/dL Borderline >240 mg/dL High Risk Eosinophils/100 WBC (Bld) 2.2 % 0-5 [facility] Glucose [Mass/Vol] 102 mg/dL 74-106 [facility] Comment on above: Fasting Glucose resu lt from 100 to 125 mg/dL suggests IMPAIRED HOMEOSTASIS per A.D.A. criteria. Hemoglobin (Bld) [Mass/Vol] 13.6 g/dL 12.0-15.0 [facility] Monocytes/100 WBC (Bld) 7.9 % 0-10 [facility] Neutrophils (Bld) [#/Vol] 4.6 10*3/uL 2.0-7.7 [facility] Neutrophils/100 WBC (Bld) 53.4 % 47-70 [facility] Potassium [Moles/Vol] 3.8 mmol/L 3.5-5.1 [facility] Protein [Mass/Vol] 7.3 g/dL 6.4-8.2 [facility] Sodium [Moles/Vol] 138 mmol/L 136-145 [facility] Triglyceride [Mass/Vol] 402 mg/dL <199 [facility] Comment on above: The drugs N-Acetylcy steine and Metamizole may falsely depress this assay. TRIGLYCERIDE IS GREATER THAN 400 mg/dL. LDL RESULT IS INVALID AND WILL NOT BE REPORTED.Serum Triglycerides Reference Interval Normal <150 mg/dL Borderline high 150 - 199 mg/dL High 200 - 499 mg/dL Very High > or = 500 mg/dL WBC (Bld) [#/Vol] 8.7 10*3/uL 4.4-11.0 [facility] Determination of erythrocyte mean corpuscular volume (MCV)Ordered By: Andrea Tapia on 10-10-2023 MCV (RBC) [Entitic vol] 95.4 fL 81-99 [facility] Erythrocyte distribution wid th ratioOrdered By: Andrea Tapia on 10-10-2023 Erythrocyte distribution width (RBC) [Ratio] 13.4 % 11.6-14.6 [facility] Erythrocyte distribution wid th standard deviationOrdered By: Andrea Tapia on 10-10-2023 Erythrocyte distribution width (RBC) [Entitic vol] 47.6 fL 35.1-43.9 [facility] Hematocrit Auto (Bld) [Volum e fraction]Ordered By: Andrea Tapia on 10-10-2023 Hematocrit (Bld) [Volume fraction] 41.6 % 37-47 [facility] Immature granulocytes/100 WB C Auto (Bld)Ordered By: Andrea Tapia on 10-10-2023 Immature granulocytes/100 WBC (Bld) 0.200 % 0.0-0.9 [facility] Comment on above: IG% - Immature Granu locytes (promyelocytes, myelocytes and metamyelocytes) > 1% indicates that a LEFT SHIFT is Present. Laboratory - Chemistry and C hemistry - challengeOrdered By: Andrea Tapia on 10-10-2023 Albumin/Globulin [Mass ratio] 1.1 {ratio} 0.9-2.4 [facility] ALP [Catalytic activity/Vol] 76 U/L 45-117 [facility] ALT [Catalytic activity/Vol] 45 U/L 13-56 [facility] Cholesterol in HDL [Mass/Vol] 46 mg/dL >40 [facility] Comment on above: The drugs N-Acetylcy steine and Metamizole may falsely depress this assay. Reference Range HDL <40 mg/dL Low HDL Cholesterol HDL >or= 60 mg/dL High HDL Cholesterol CO2 [Moles/Vol] 27.0 mmol/L 21.0-32.0 [facility] Globulin (S) [Mass/Vol] 3.4 g/dL 2.2-4.2 [facility] Urea nitrogen/Creatinine [Mass ratio] 29.8 mg/mg 10-20 [facility] Laboratory - Hematology and Cell countsOrdered By: Andrea Tapia on 10-10-2023 MCH (RBC) [Entitic mass] 31.2 pg 27.0-32.0 [facility] MCHC (RBC) [Mass/Vol] 32.7 g/dL 32-36 [facility] Nucleated RBC/100 WBC (Bld) [Ratio] 0 % 0-5 [facility] Platelet mean volume (Bld) [Entitic vol] 10.1 fL 6.2-12.0 [facility] Platelets (Bld) [#/Vol] 423 10*3/uL 150-450 [facility] No Panel InformationOrdered By: Andrea Tapia on 10-10-2023 Estimated GFR (MDRD) Amer 99 mL/min >60 [facility] Comment on above: GFR Calc Estimated GFR (MDRD) Non-Af Amer 82 mL/min >60 [facility] Comment on above: Non- GFR Calc LDL [facility] Comment on above: Test not performed Vitamin D 25-Hydroxy 34.0 ng/mL [facility] Comment on above: Vitamin D 25(OH) Sta tus Range Deficiency <20 ng/mL (50nmol/L) Insufficiency 20 - 30 ng/mL (50 - 75 nmol/L) Sufficiency 30 - 100 ng/mL (75 - 250 nmol/L) Toxicity >100 ng/mL (>250 nmol/L) VLDL [facility]olesterol [facility] Comment on above: Test not performed RBC Auto (Bld) [#/Vol]Ordere d By: Andrea Tapia on 10-10-2023 RBC (Bld) [#/Vol] 4.36 10*6/uL 4.2-5.4 [facility] Serum or plasma calcium case urement (mass/volume)Ordered By: Andrea Tapia on 10-10-2023 Calcium [Mass/Vol] 8.7 mg/dL 8.5-10.1 [facility] Serum or plasma creatinine m easurement (mass/volume)Ordered By: Andrea Tapia on 10-10-2023 Creatinine [Mass/Vol] 0.77 mg/dL 0.55-1.02 [facility] Comment on above: The validity of the calculated GFR & GFRAA in patients over 70 years has not been determined. Clinical correlation is essential. Serum or plasma thyroid stim ulating hormone (TSH) measurement (units/volume)Ordered By: Andrea Tapia on 10-10-2023 TSH Qn 1.30 uIU/mL 0.358-3.74 [facility] Serum or plasma urea nitroge n measurement (mass/volume)Ordered By: Andrea Tapia on 10-10-2023 Urea nitrogen [Mass/Vol] 23 mg/dL 7-18 [facility] Thin prep Papanicolaou smear with manual screeningOrdered By: Andrea Tapia on 10-10-2023 Thin prep Papanicolaou smear with manual screening 3.9 g/dL 3.2-5.0 [facility] Thin prep Papanicolaou smear with manual screening 25 U/L 15-37 [facility] Thin prep Papanicolaou smear with manual screening 6 5-15 [facility] Thin prep Papanicolaou smear with manual screening 0.84 ng/dL 0.76-1.46 [facility] Whole blood hemoglobin A1c/t otal hemoglobin ratio (mass fraction)Ordered By: Andrea Tapia on 10-10-2023 HbA1c (Bld) [Mass fraction] 5.9 % 3.8-5.6 [facility] Comment on above: Normal < 5.7 % Predi abetic 5.7 - 6.4 % Diabetic >or= 6.5 % Please note range changes. [facility] [facility] [facility] ALEXANDRETOMEKA ([id number]) 1965 F Date Time Provider Department 08/04/23 PIA HENSON [facility] During your visit today, we recorded the [...] Date Reviewed: 08/03/2023 Reviewed by: Regis Flowers APRN.LOCK TENDER CHIEF OPERATOR - Fully Assessed Reason for Visit: Results [...] Status:Closed by DENISE BLACKMON on 08/04/23 Normal [facility] COVID & INFLUENZA A/B & RSV NAAT, ROUTINEon 08-04-2023 FLUAV RNA IVAN+probe Ql (Unsp spec) Detected Abnormal Not Detected [facility] FLUBV RNA IVAN+probe Ql (Unsp spec) Not detected Not Detected [facility] RSV A RNA IVAN+probe Ql (Unsp spec) Not detected Not Detected [facility] SARS-CoV-2 (COVID-19) RNA IVAN+probe Ql (Resp) Not detected See comment [facility] ([facility] ) TOMEKA ALEXANDRE ([id number]) 1965 F Date Time Provider Department 08/03/23 2:30 PM REGIS FLOWERS [facility] During your visit today, we recorded the following information about you: Temperature Pulse Respiration Blood pressure 100.7 degrees 92/minute 18/minute 120/74 Weight 76.2 kg Regis Flowers APRN.LOCK TENDER CHIEF OPERATOR 08/03/2023 2:51 PM Signed Subjective HPI Nontoxic-appearing female presents urgent care chief complaint of cough and fever. Duration of symptoms 4 days. Associated symptoms fever body aches chills nasal congestion cough. Was seen here on Monday diagnosed with acute cough negative chest x-ray negative [id number] flu. States symptoms have stayed persistent. Most [...] (primary diagn (more content not included)... Normal [facility] COVID AND INFLUENZA A/B AND RSV NAAT, ROUTINEon 08-03-2023 SARS-CoV-2 (COVID-19) RNA IVAN+probe Ql (Unsp spec) COVID 19 RESULT: Not detected The method used is RT-PCR or an equivalent NAAT method. Reference Range (the expected result in uninfected individuals): Not detected INFLUENZA A PCR: Detected INFLUENZA B PCR: Not detected RSV PCR: Not detected Abnormal [facility] Comment on above: Performed By: #### C VFLRS #### [facility] CLIA [id number] [address] [place] [address] [place] CNOVon 08-01-2023 CNOV Office Visit ([facility] ) TOMEKA ALEXANDRE ([id number]) 1965 F Date Time Provider Department 08/01/23 9:15 AM [facility] During your visit today, we recorded the following information about you: Temperature Pulse Respiration Blood pressure 99.6 degrees 118/minute 21/minute 156/90 Weight 77.1 kg Marya Mcdermott APRN.CNP 08/01/2023 9:56 AM Signed This note was created using [employer]. Subjective Tomeka Alexandre is a 57 year [...] history is provided by the patient. No modern languages professor was used. Cough This is a new [...] Pulmonary e (more content not included)... Normal [facility] XR CHEST 2V FRONTAL/LATon XR CHEST [...] tissues: Unremarkable. IMPRESSION: No acute radiographic abnormality. Vacuum Cleaner Assembler: [facility] Transcribe Date/Time: Aug 01 2023 9:41A Dictated by : TARIQ PEARL MD This examination was interpreted and the report reviewed and electronically signed by: TARIQ PEARL MD on Aug 01 2023 9:43AM EST [id number] Normal [facility] XR Chest PA and Lateralon IMPRESSION: No acute radiographic abnormality. Vacuum Cleaner Assembler: [facility] Transcribe Date/Time: Aug 01 2023 9:41A Dictated [...] soft tissues: Unremarkable. DIVISION OF RADIOLOGY Provider, Rose Jeri [facility] - 08/01/2023 * * *Final Report* * [...] Unremarkable. IMPRESSION IMPRESSION: No acute radiographic abnormality. Vacuum Cleaner Assembler: [facility] Transcribe Date/Time: Aug 01 2023 9:41A Dictated by : TARIQ PEARL MD This examination was interpreted and the report reviewed and electronically signed by: TARIQ PEARL MD on Aug 01 2023 9:43AM EST [facility] Radiology Study observation (narrative) [facility] XR Chest PA and LateralOrder ed By: Ccf Provider on 08-01-2023 [facility] STREP A MOLECULAR (POC)on Procedural Control Valid [facility] Strep A (POCT) Negative Negative [facility] Basophil percentageOrdered B y: Andrea Sterlingpkins on 08-26-2022 Bilirubin [Mass/Vol] 0.40 mg/dL 0.20-1.00 [facility] Comment on above: For patients on eltr ombopag therapy, use of Dimension [place] TBIL is not recommended. Chloride [Moles/Vol] 105 mmol/L 98-107 [facility] Cholesterol [Mass/Vol] 202 mg/dL <200 [facility] Comment on above: <200 mg/dL Desirable 200-240 mg/dL Borderline >240 mg/dL High Risk Glucose [Mass/Vol] 112 mg/dL 74-106 [facility] Comment on above: Fasting Glucose resu lt from 100 to 125 mg/dL suggests IMPAIRED HOMEOSTASIS per A.D.A. criteria. Potassium [Moles/Vol] 4.3 mmol/L 3.5-5.1 [facility] Protein [Mass/Vol] 7.4 g/dL 6.4-8.2 [facility] Sodium [Moles/Vol] 139 mmol/L 136-145 [facility] Triglyceride [Mass/Vol] 93 mg/dL <199 [facility] Comment on above: The drugs N-Acetylcy steine and Metamizole may falsely depress this assay.Serum Triglycerides Reference Interval Normal <150 mg/dL Borderline high 150 - 199 mg/dL High 200 - 499 mg/dL Very High > or = 500 mg/dL WBC (Bld) [#/Vol] 8.2 10*3/uL 4.4-11.0 [facility] Blood erythrocytes count (nu mber/volume)Ordered By: Andrea Tapia on 08-26-2022 RBC (Bld) [#/Vol] 4.56 10*6/uL 4.2-5.4 [facility] Blood hemoglobin measurement (mass/volume)Ordered By: Andrea Tapia on 08-26-2022 Hemoglobin (Bld) [Mass/Vol] 14.1 g/dL 12.0-15.0 [facility] Blood platelet mean volumeOr dered By: Andrea Tapia on 08-26-2022 Platelet mean volume (Bld) [Entitic vol] 10.4 fL 6.2-12.0 [facility] Determination of erythrocyte mean corpuscular volume (MCV)Ordered By: Andrea Tapia on 08-26-2022 MCV (RBC) [Entitic vol] 97.1 fL 81-99 [facility] Hematocrit Auto (Bld) [Volum e fraction]Ordered By: Andrea Tapia on 08-26-2022 Hematocrit (Bld) [Volume fraction] 44.3 % 37-47 [facility] Laboratory - Chemistry and C hemistry - challengeOrdered By: Andrea Tapia on 08-26-2022 ALP [Catalytic activity/Vol] 90 U/L 45-117 [facility] ALT [Catalytic activity/Vol] 26 U/L 13-56 [facility] CO2 [Moles/Vol] 28.0 mmol/L 21.0-32.0 [facility] Globulin (S) [Mass/Vol] 3.6 g/dL 2.2-4.2 [facility] Urea nitrogen/Creatinine [Mass ratio] 34.4 mg/mg 10-20 [facility] - Hematology and Cell countsOrdered By: Andrea Tapia on 08-26-2022 Erythrocyte distribution width (RBC) [Entitic vol] 46.5 fL 35.1-43.9 [facility] Erythrocyte distribution width (RBC) [Ratio] 13.0 % 11.6-14.6 [facility] MCH (RBC) [Entitic mass] 30.9 pg 27.0-32.0 [facility] MCHC Auto (RBC) [Mass/Vol]Or dered By: Andrea Tapia on 08-26-2022 MCHC (RBC) [Mass/Vol] 31.8 g/dL 32-36 [facility] No Panel InformationOrdered By: Andrea Tapia on 08-26-2022 Estimated GFR (MDRD) Amer 112 mL/min >60 [facility] Comment on above: GFR Calc Estimated GFR (MDRD) Non-Af Amer 92 mL/min >60 [facility] Comment on above: Non- GFR Calc Thyroid Stimulating Hormone (TSH) 1.23 uIU/mL 0.358-3.74 [facility] Platelets bldOrdered By: Andrea Tapia on 08-26-2022 Platelets (Bld) [#/Vol] 508 10*3/uL 150-450 [facility] Serum or plasma albumin case urement (mass/volume)Ordered By: Andrea Tapia on 08-26-2022 Albumin [Mass/Vol] 3.8 g/dL 3.2-5.0 [facility] Serum or plasma albumin/glob ulin mass ratioOrdered By: Andrea Tapia on 08-26-2022 Albumin/Globulin [Mass ratio] 1.1 {ratio} 0.9-2.4 [facility] Serum or plasma calcium case urement (mass/volume)Ordered By: Andrea Tapia on 08-26-2022 Calcium [Mass/Vol] 9.2 mg/dL 8.5-10.1 [facility] Serum or plasma cholesterol in HDL measurement (mass/volume)Ordered By: Andrea Tapia on 08-26-2022 Cholesterol in HDL [Mass/Vol] 52 mg/dL >40 [facility] Comment on above: The drugs N-Acetylcy steine and Metamizole may falsely depress this assay. Reference Range HDL <40 mg/dL Low HDL Cholesterol HDL >or= 60 mg/dL High HDL Cholesterol Serum or plasma cholesterol in VLDL measurement (mass/volume)Ordered By: Andrea Tapia on 08-26-2022 Cholesterol in VLDL [Mass/Vol] 19 mg/dL 5-40 [facility] Serum or plasma creatinine m easurement (mass/volume)Ordered By: Andrea Tapia on 08-26-2022 Creatinine [Mass/Vol] 0.70 mg/dL 0.55-1.02 [facility] Comment on above: The validity of the calculated GFR & GFRAA in patients over 70 years has not been determined. Clinical correlation is essential. Serum or plasma low density lipoprotein (LDL) cholesterol measurement (mass/volume)Ordered By: Andrea Tapia on 08-26-2022 Cholesterol in LDL [Mass/Vol] 131 mg/dL 0-130 [facility] Serum or plasma urea nitroge n measurement (mass/volume)Ordered By: Andrea Tapia on 08-26-2022 Urea nitrogen [Mass/Vol] 24 mg/dL 7-18 [facility] Thin prep Papanicolaou smear with manual screeningOrdered By: Andrea Tapia on 08-26-2022 Thin prep Papanicolaou smear with manual screening 17 U/L 15-37 [facility] Thin prep Papanicolaou smear with manual screening 6 5-15 [facility] STREP A MOLECULAR (POC)on Procedural Control Valid [facility] Strep A (POCT) Negative Negative [facility] Vital Signs Date Time Vital Sign Value Performing Clinician Facility 02-06-2025 13:17 Body height 167.64 cm Andrea Tapia NP-C Work Phone: [facility] 02-06-2025 13:17-040 Body mass index (BMI) [Ratio] 28.1 kg/m2 Andrea Tapia MANAGER BABY-C Work Phone: [facility] 02-06-2025 13:17-0400 Body weight 79.18 kg Andrea Tapia MANAGER BABY-C Work Phone: [facility] 02-06-2025 13:17-0400 Diastolic blood pressure 76 mm[Hg] Andrea Tapia MANAGER BABY-C Work Phone: [facility] 02-06-2025 13:17-0400 Heart rate 72 /min Andrea Tapia MANAGER BABY-C Work Phone: [facility] 02-06-2025 13:17-0400 Systolic blood pressure 142 mm[Hg] Andrea Tapia MANAGER BABY-C Work Phone: [facility] 07-20-2024 09:56-0500 Body mass index (BMI) [Ratio] 26.69 kg/m2 Radhaparamjit Fergusonisler-Ari DRILL INSTRUCTOR.LOCK TENDER CHIEF OPERATOR Work Phone: [facility] 07-20-2024 09:56-0500 Body temperature 99.39 [degF] Radha Praisler-Wood DRILL INSTRUCTOR.LOCK TENDER CHIEF OPERATOR Work Phone: [facility] 07-20-2024 09:56-0500 Body weight 75 kg Radha Praisler-Wood DRILL INSTRUCTOR.LOCK TENDER CHIEF OPERATOR Work Phone: [facility] 07-20-2024 09:56-0500 Diastolic blood pressure 71 mm[Hg] Radha Praisler-Wood DRILL INSTRUCTOR.LOCK TENDER CHIEF OPERATOR Work Phone: [facility] 07-20-2024 09:56-0500 Heart rate 93 /min Radha Praisler-Wood DRILL INSTRUCTOR.LOCK TENDER CHIEF OPERATOR Work Phone: [facility] 07-20-2024 09:56-0500 Respiratory rate 18 /min Radha Praisler-Wood DRILL INSTRUCTOR.LOCK TENDER CHIEF OPERATOR Work Phone: [facility] 07-20-2024 09:56-0500 SaO2% (BldA) [Mass fraction] 96 % Radha Praisler-Wood DRILL INSTRUCTOR.LOCK TENDER CHIEF OPERATOR Work Phone: [facility] 07-20-2024 09:56-0500 Systolic blood pressure 110 mm[Hg] Radha Sultana DRILL INSTRUCTOR.LOCK TENDER CHIEF OPERATOR Work Phone: [facility] 08-03-2023 14:24-0500 Body temperature 100.71 [degF] [facility] DRILL INSTRUCTOR.LOCK TENDER CHIEF OPERATOR Work Phone: [facility] 08-03-2023 14:24-0500 Body weight 76.2 kg [facility] DRILL INSTRUCTOR.LOCK TENDER CHIEF OPERATOR Work Phone: [facility] 08-03-2023 14:24-0500 Diastolic blood pressure 74 mm[Hg] [facility] DRILL INSTRUCTOR.LOCK TENDER CHIEF OPERATOR Work Phone: [facility] 08-03-2023 14:24-0500 Heart rate 92 /min [facility] DRILL INSTRUCTOR.LOCK TENDER CHIEF OPERATOR Work Phone: [facility] 08-03-2023 14:24-0500 Respiratory rate 18 /min [facility] DRILL INSTRUCTOR.LOCK TENDER CHIEF OPERATOR Work Phone: [facility] 08-03-2023 14:24-0500 SaO2% (BldA) [Mass fraction] 96 % [facility] DRILL INSTRUCTOR.LOCK TENDER CHIEF OPERATOR Work Phone: [facility] 08-03-2023 14:24-0500 Systolic blood pressure 120 mm[Hg] [facility] DRILL INSTRUCTOR.LOCK TENDER CHIEF OPERATOR Work Phone: [facility] 07-02-2023 09:19-0500 Body temperature 98.01 [degF] Polina Athy PA-C Work Phone: [facility] 07-02-2023 09:19-0500 Body weight 78.93 kg Polina Athy PA-C Work Phone: [facility] 07-02-2023 09:19-0500 Diastolic blood pressure 80 mm[Hg] Polina Athy PA-C Work Phone: [facility] 07-02-2023 09:19-0500 Heart rate 84 /min Polina Athy PA-C Work Phone: [facility] 07-02-2023 09:19-0500 Respiratory rate 16 /min Polina Athy PA-C Work Phone: [facility] 07-02-2023 09:19-0500 SaO2% (BldA) [Mass fraction] 94 % Polina Athy PA-C Work Phone: [facility] 07-02-2023 09:19-0500 Systolic blood pressure 126 mm[Hg] Polina Athy PA-C Work Phone: [facility] 03-15-2023 07:26-0400 Body temperature 99.5 [degF] [facility] DRILL INSTRUCTOR.LOCK TENDER CHIEF OPERATOR Work Phone: [facility] 03-15-2023 07:26-0400 [facility].LOCK TENDER CHIEF OPERATOR Work Phone: [facility] 03-15-2023 07:26-0400 Diastolic blood pressure 80 mm[Hg] [facility] DRILL INSTRUCTOR.LOCK TENDER CHIEF OPERATOR Work Phone: [facility] 03-15-2023 07:26-0400 Heart rate 106 /min [facility] DRILL INSTRUCTOR.LOCK TENDER CHIEF OPERATOR Work Phone: [facility] 03-15-2023 07:26-0400 Respiratory rate 16 /min [facility] DRILL INSTRUCTOR.LOCK TENDER CHIEF OPERATOR Work Phone: [facility] 03-15-2023 07:26-0400 SaO2% (BldA) [Mass fraction] 98 % [facility] DRILL INSTRUCTOR.LOCK TENDER CHIEF OPERATOR Work Phone: [facility] 03-15-2023 07:26-0400 Systolic blood pressure 122 mm[Hg] [facility] DRILL INSTRUCTOR.LOCK TENDER CHIEF OPERATOR Work Phone: [facility] 07-10-2022 14:54-0500 Body temperature 99.7 [degF] Polina Athy PA-C Work Phone: [facility] 07-10-2022 14:54-0500 Body weight 76.66 kg Polina Athy PA-C Work Phone: [facility] 07-10-2022 14:54-0500 Diastolic blood pressure 86 mm[Hg] Polina Athy PA-C Work Phone: [facility] 07-10-2022 14:54-0500 Heart rate 93 /min Polina Athy PA-C Work Phone: [facility] 07-10-2022 14:54-0500 Respiratory rate 16 /min Polina Athy PA-C Work Phone: [facility] 07-10-2022 14:54-0500 SaO2% (BldA) [Mass fraction] 97 % Polina Athy PA-C Work Phone: [facility] 07-10-2022 14:54-0500 Systolic blood pressure 114 mm[Hg] Polina Athy PA-C Work Phone: [facility] Encounters Encounter Date Encounter Type Care Provider Facility Start: 02-28-2025 ambulatory [place] Tapia [place] [place] Start: 02-21-2025 ambulatory Monet Villalobos Facility :[facility] Start: 02-06-2025 End: 02-06-2025 Patient encounter procedure Monet Villalobos MANAGER BABY-C -[facility] Work Phone: Start: 02-06-2025 End: 02-06-2025 ambulatory Andrea Tapia MANAGER BABY-C Work Phone: -[facility] Start: 08-21-2024 End: 08-21-2024 ambulatory Monet Villalobos Facility:[facility] Start: 08-07-2024 Encounter for gynecological examination (general) (routine) without abnormal findings Salena Robins [facility] Start: 08-07-2024 End: 08-07-2024 ambulatory Andrea Tapia MANAGER BABY [place] [place] Start: 08-07-2024 End: 08-07-2024 ambulatory Andrea Tapia MANAGER BABY Facility:[facility] Start: 07-21-2024 End: 07-22-2024 Telephone encounter Marya Mcdermott APRN.CNP Work Phone: [facility] Comment on above: Results Start: 07-21-2024 End: 07-21-2024 ambulatory Robi Baldemar Kenny SLADE [place] [place] Start: 07-20-2024 End: 07-20-2024 ambulatory ANDREA TAPIA Facility:[facility] Start: 07-20-2024 End: 07-20-2024 Patient encounter procedure Radha Sultana APRN.LOCK TENDER CHIEF OPERATOR Work Phone: [facility] Comment on above: Sore throat (Primary Dx); Viral URI Start: 03-13-2024 ambulatory Monet [facility] [place] [place] Start: 10-10-2023 End: 10-10-[address] [facility] Work Phone: Start: 10-10-2023 End: 10-10-[address] [facility] Work Phone: Start: 08-04-2023 Telephone encounter Pia SLAUGHTER Work Phone: [facility] Comment on above: Results Start: 08-03-2023 End: 08-03-2023 ambulatory ANDREA TAPIA Facility:[facility] Start: 08-03-2023 End: 08-03-2023 Office outpatient visit 25 minutes Regis Flowers APRN.LOCK TENDER CHIEF OPERATOR Work Phone: [facility] Comment on above: Viral illness (Prima ry Dx); Fever, unspecified fever cause Start: 08-01-2023 End: 08-01-2023 Subsequent hospital visit by physician Xr [facility] Work Phone: Radiology Comment on above: Acute cough [R05.1] Start: 08-01-2023 End: 08-01-2023 ambulatory ANDREA TAPIA Facility:[facility] Start: 07-02-2023 End: 07-02-2023 Patient encounter procedure Polina Stone PA-C Work Phone: [facility] Comment on above: Lower resp. tract in fection (Primary Dx) Start: 03-15-2023 End: 03-15-2023 Office outpatient visit 15 minutes [facility] DRILL INSTRUCTOR.LOCK TENDER CHIEF OPERATOR Work Phone: [facility] Comment on above: Viral URI (Primary D x) Start: 11-18-2022 End: 11-18-[address] [facility] Work Phone: Start: 11-18-2022 End: 11-18-[address] [facility] Work Phone: Start: 08-26-2022 End: 08-26-[address] [facility] Work Phone: Start: 08-26-2022 End: 08-26-[address] 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: Start: 07-02-2023 STREP A MOLECULAR (POC) Polina Stone PA-C Work Phone: Start: 11-18-2022 Screening mammography Start: 07-10-2022 STREP A MOLECULAR (POC) Polina Stone PA-C Work Phone: Plan of Treatment Date Care Activity Detail Author Start: 07-05-2026 HPV TESTING HPV TESTING [facility] Start: 07-05-2026 PAP TESTING PAP TESTING [facility] Start: 07-05-2026 Screening for malign ant neoplasm of cervix [facility] Start: 03-03-2024 Influenza vaccination Influenza Vacc ine (#1) [facility] Start: 07-03-2023 Depression Assessment Depression Ass essment [facility] Start: 03-03-2023 Influenza vaccination Influenza Vacc ine (#1) [facility] Start: 07-10-2022 End: 07-24-2022 Influenza virus A and B RNA and SARS-CoV-2 (COVID-19) N gene panel - Respiratory specimen by IVAN with probe detection [facility] Work Phone: Comment on above: Expected: 07/10/2022 , Expires: 07/24/2022 Start: 07-05-2022 Screening for malign ant neoplasm of cervix Cervical Cancer Screening [facility] Start: 07-03-2022 DEPRESSION ASSESSMENT DEPRESSION ASS [facility] Start: 03-03-2022 Influenza vaccination INFLUENZA (#1) [facility] Start: 2016 SHINGRIX VACCINE (1 of 2) SHINGRIX VACCINE (1 of 2) [facility] Start: 11-22-2011 COLOGUARD (FIT-DNA) COLOGUARD (FIT-D NA) [facility] Start: 11-22-2011 Colonoscopy COLONOSCOPY [facility] Start: 11-22-2011 COLORECTAL CANCER SCREENING COLORECTAL CANCER SCREENING [facility] Start: 11-22-[address] COLONOGRAPHY [facility] Start: 11-22-2011 DIABETES SCREEN DIABETES SCREEN [facility] Start: 11-22-2011 Diabetes Screening Diabetes Screenin g [facility] Start: 11-22-2011 FECAL OCCULT BLOOD FECAL OCCULT BLOO D [facility] Start: 11-22-2011 Lipid 1996 panel - S pushpa or Plasma Lipid Screening [facility] Start: 11-22-2011 Lipid panel Lipid Screening [facility] Start: 11-22-2011 LIPID SCREEN LIPID SCREEN [facility] Start: 11-22-2011 Screening for malign ant neoplasm of colon [facility] Start: 11-22-2011 SIGMOIDOSCOPY SIGMOIDOSCOPY [facility] Start: 2006 Mammography [facility] Start: 2006 Screening for malign ant neoplasm of breast Mammogram Screening [facility] Start: 1985 Hepatitis B Vaccine (1 of 3 - 19+ 3-dose series) Hepatitis B Vaccine (1 of 3 - 19+ 3-dose series) [facility] Start: 1985 Pneumococcal Vaccine : 50+ (1 of 2 - PCV) Pneumococcal Vaccine: 50+ (1 of 2 - PCV) [facility] Start: 1985 Shingrix Vaccine (1 of 2) Shingrix Vaccine (1 of 2) [facility] Start: 1985 Urine microalbumin profile [facility] Start: 1984 Anxiety Screening Anxiety Screening [facility] Start: 1984 Depression Screening Depression Scre ening [facility] Start: 1984 HEPATITIS C SCREENING HEPATITIS C [facility] Start: 1984 Hepatitis C screening Hepatitis C [facility] Start: 1984 HIV SCREENING HIV SCREENING [facility] Start: 1984 HIV screening HIV Screening [facility] Start: 1972 Pneumococcal vaccination Pneum ococcal Vaccine (1 of 2 - PCV) [facility] Start: 11-22-1971 Covid-19 Vaccine (#1) Covid-19 Vacci ne (#1) [facility] Start: 05-24-1967 COVID-19 VACCINE (#1) COVID-19 VACCI NE (#1) [facility] Start: 1966 HEPATITIS B (1 of 3 - 3-dose series) HEPATITIS B (1 of 3 - 3-dose series) [facility] Start: 1966 Hepatitis B Vaccine (1 of 3 - 3-dose series) Hepatitis B Vaccine (1 of 3 - 3-dose series) [facility] COVID & INFLUENZA A/ B & RSV PCR, ROUTINE COVID & INFLUENZA A/B & RSV PCR, ROUTINE Microbiology Routine Viral URI Ordered: 07/20/2024 [facility] Work Phone: Comment on above: [facility] P[facility] Date Payer Category Payer Unknown [id number] 2024 Self-pay [id number] 2021 Unknown [id number] 2021 Unknown [id number] Unknown [id number] Unknown [id number] Unknown [id number] [id number] [id number] Unknown [id number] [id number] Unknown [id number] [id number] [id number] Unknown [id number] [id number] Unknown [id number] [id number] [id number] Unknown [id number] Social History Date Type Detail Facility Start: 07-10-2022 End: 02-06-2025 Tobacco smoking status NHIS Never smoked tobacco [facility] Start: 07-10-2022 Tobacco use and exposure Smokeless tobacco non-user [facility] Start: 07-10-2022 End: 07-20-2024 Alcohol intake Current drinker of alcohol (finding) [facility] Start: 07-05-2021 Alcohol Comment [facility] Start: 1965 Sex Assigned At Not on file [facility] Start: 11-24-2017 End: 11-24-2017 Tobacco smoking status CAIS Unknown if ever smoked [facility] Start: 11-24-2017 Non-smoker [facility] Start: 1965 Sex Assigned At Female W [facility] Start: 06-10-2020 End: 03-15-2023 History of Social function [facility] Start: 06-10-2020 End: 03-15-2023 Tobacco use panel [facility] National Score (1-100), lower number is lower risk Not on file [facility] Clinical Notes 07-10-2022 to 07-22-2024 Telephone Encounter - Rohini Miller MA - 07/22/2024 8:04 AM ESTTelephone Encounter - Rohini Miller MA - 07/22/2024 8:04 AM ESTPatient InstructionsPatient Instructions Note Date & Type Note Facility 07-22-2024 Telephone encount er Note Patient given results and verbalized understanding of instructions given. Rohini Miller MA [facility] 07-22-2024 Miscellaneous Notes Formattin g of this note might be different from the original. Patient given results and verbalized understanding of instructions given. Rohini Miller MA Attempted to call patient. Requested call back. Please discuss when calls back. You tested negative for COVID, Influenza, and RSV. Please contact us if your symptoms are worsening or not improving. Please advise documented in this encounter [facility] 07-21-2024 Telephone encount er Note Attempted to call patient. Requested call back. Please discuss when calls back. [facility] 07-21-2024 Telephone encount er Note You tested negative for COVID, Influenza, and RSV. Please contact us if your symptoms are worsening or not improving. Please advise [facility] 07-20-2024 Instructions Radha Sultana APRN.CNP - 07/20/2024 10:17 AM EST ASSESSMENT/PLAN: [...] Discussed expected course of illness Radha Sultana APRN.LOCK TENDER CHIEF OPERATOR Treatment for Viral Upper Respiratory Tract Infections [...] fluids help open respiratory and sinus passages [place] Nasal Sixes may offer relief of nasal and head [...] rather than better documented in this encounter [facility] 07-20-2024 Note HNO ID: [id number] Author: RADHA SULTANA APRN.LUIS MIGUEL Service: ? Author Type: Nurse Practitioner Type: [...] Discussed expected course of illness Radha Sultana APRN.[facility] 07-20-2024 History of Presen t illness Narrative [...] Discussed expected course of illness Radha Sultana APRN.LOCK TENDER CHIEF OPERATOR documented in this encounter [facility] 08-04-2023 Miscellaneous Notes Formattin g of this [...] measures at home. documented in this encounter [facility] 08-03-2023 Note HNO ID: [id number] Author: REGIS FLOWERS APRN.LOCK TENDER CHIEF OPERATOR Service: ? Author Type: Nurse Practitioner Type: Progress Notes Filed: 08/03/2023 14:51 Note Text: Subjective HPI Nontoxic-appearing female presents urgent care chief complaint of cough and fever. Duration of symptoms 4 days. Associated symptoms fever body aches chills nasal congestion cough. Was seen here on Monday diagnosed with acute cough negative chest x-ray negative sculn-[id number] flu. States symptoms have stayed persistent. Most [...] adventitious lung sounds. (more content not included)... [facility] 08-03-2023 History of Presen t illness Narrative Subjective HPI Nontoxic-appearing female presents urgent care chief complaint of cough and fever. Duration of symptoms 4 days. Associated symptoms fever body aches chills nasal congestion cough. Was seen here on Monday diagnosed with acute cough negative chest x-ray negative [id number] flu. States symptoms have stayed persistent. Most [...] of care. This note was generated using Shared Spectrum software. It may contain errors in wording, punctuation, or spelling. Regis Flowers APRN.LUIS MIGUEL documented in this encounter [facility] 08-03-2023 Instructions Regis Flowers APRN.LOCK TENDER CHIEF OPERATOR - 08/03/2023 2:40 PM EST How to [...] concerning to you. documented in this encounter [facility] 08-01-2023 History of Presen t illness Narrative [...] PATIENT PRESENTS WITH AN IMPLANTABLE OR ATTACHED WAFER FAB OPERATOR: No RADIOLOGY DEPARTMENT: General X-ray: Exam(s) Completed: Chest X-Ray PERIPHERAL IV DATA: Not applicable SIGNED BY: RT Estephanie(R) August 01, 2023 9:32 AM documented in this encounter [facility] 08-01-2023 Note HNO ID: [id number] Author: SELAM CURTIS RT(R) Service: ? Author Type: Field Producer Type: Progress Notes Filed: 08/01/2023 09:38 Note [...] PATIENT PRESENTS WITH AN IMPLANTABLE OR ATTACHED WAFER FAB OPERATOR: No RADIOLOGY DEPARTMENT: General X-ray: Exam(s) Completed: Chest X-Ray PERIPHERAL IV DATA: Not applicable SIGNED BY: RT Estephanie(R) August 01, 2023 9:32 AM [facility] 08-01-2023 Note HNO ID: [id number] Author: MARYA MCDERMOTT APRN.LOCK TENDER CHIEF OPERATOR Service: ? Author Type: Nurse Practitioner Type: Progress Notes Filed: 08/01/2023 09:56 Note Text: This note was created using [employer] Group[employer]. Subjective Tomeka Alexandre is a 57 year [...] history is provided by the patient. No modern languages professor was used. Cough This is a new [...] no mass. Tenderness: (more content not included)... [facility] 07-02-2023 History of Presen t illness Narrative This note was created using [employer]. Subjective Tomeka Alexandre is a 57 year old female. HPI Presents with a chief complaint of cough and congestion over the past 8 days. She had a fever last night of 101. She had not had a fever otherwise during her illness. She states cough is not improving. She has used some Mucinex qvqb-ygu-[id number]. No diarrhea or vomiting. No home COVID [...] Polina Stone PA-C documented in this encounter [facility] 03-15-2023 History of Presen t illness Narrative Subjective HPI Nontoxic-appearing female presents to urgent care with chief complaint of fever and cough. Duration of symptoms 2 days Associated symptoms with today's chief complaint are on and off headache, muscle aches, fatigue, sore throat, nonproductive cough, and fever. Patient stated symptoms started abruptly. Patient states they have used getu-qwv-flicorp medication with some success. No known sick [...] of care. This note was generated using Shared Spectrum software. It may contain errors in wording, punctuation, or spelling. Regis Flowers APRN.LUIS MIGUEL documented in this encounter [facility] 07-10-2022 History of Presen t illness Narrative This note was created using [employer]. Subjective Tomeka Alexandre is a 56 year [...] Polina Stone PA-C documented in this encounter [facility] Evaluation note Diagnosis Viral URI- Primary Acute upper respiratory infections of unspecified site documented [facility] this encounter [facility] noteNo assessment information availableWS[facility] Work Phone: Evaluation note* Diagnosis Viral URI- Primary Acute upper respiratory infections of unspecified site [facility] Diagnosis Lower resp. tract infection- Primary Other diseases of respiratory system, not elsewhere classified [facility]* Diagnosis Viral illness- Primary Unspecified viral infection, in conditions classified elsewhere and of unspecified site Fever, unspecified fever cause [facility]* Diagnosis Acute cough [facility]* Diagnosis Sore throat- Primary Acute pharyngitis Viral URI Acute upper respiratory infections of unspecified site [facility]* Diagnosis Onset Date Resolution Status Admit Date Overweight (BMI 25.0-29.9) acute February 06, 2025 1:10pm Post-menopausal acute January 1:10pm [facility] Work Phone: Reason for referral (narrative)No reason for referral information availableBlLos Medanos [facility] Work Phone: Health Concerns Infection Onset Date [...] November 22, 2017 1 0:18am Power of Manager Industrial No November 22, 2017 10:18am Advance Directive Response Recorded Date/ Time Living Will No November 22, 2017 1 1:18am Power of Manager Industrial No November 22, 2017 11:18am Chief Complaint and Reason for Visit Chief Complaint SCREENING Chief Complaint Admit Date NEW WEIGHT MANAGEMENT (ok per AW) February 06, 2025 1:10pm Reason for Visit Admit Date Overweight (BMI 25.0-29.9) February 06 1:10pm Post-menopausal February 06, 2025 1:1 0pm [...] or prosecute any alcohol or drug abuse patient.[facility] the event this information is protected by the Federal Confidentiality of Alcohol and Drug Abuse Patient Records regulations: The Federal rules restrict any use of the information to criminally investigate or prosecute any alcohol or drug abuse patient.[facility] the event this information is protected by the Federal Confidentiality of Alcohol and Drug Abuse Patient Records regulations: The Federal rules restrict any use of the information to criminally investigate or prosecute any alcohol or drug abuse patient.[facility] System[facility] the event this information is protected by the Federal Confidentiality of Alcohol and Drug Abuse Patient Records regulations: The Federal rules restrict any use of the information to criminally investigate or prosecute any alcohol or drug abuse patient.[facility] the event this information is protected by the Federal Confidentiality of Alcohol and Drug Abuse Patient Records regulations: The Federal rules restrict any use of the information to criminally investigate or prosecute any alcohol or drug abuse patient.[facility] System[facility] the event this information is protected by the Federal Confidentiality of Alcohol and Drug Abuse Patient Records regulations: The Federal rules restrict any use of the information to criminally investigate or prosecute any alcohol or drug abuse patient.[facility] System[facility] the event this information is protected by the Federal Confidentiality of Alcohol and Drug Abuse Patient Records regulations: The Federal rules restrict any use of the information to criminally investigate or prosecute any alcohol or drug abuse patient.[facility] the event this information is protected by the Federal Confidentiality of Alcohol and Drug Abuse Patient Records regulations: The Federal rules restrict any use of the information to criminally investigate or prosecute any alcohol or drug abuse patient.[facility] Reason for Visit (unrecogniz ed section and [...] Care Teams (unrecognized sec tion and content) Metal Patternmaker Relationship Specialty Start Date End Date Ruddy Phelps DO PCP - General Genetics 05/16/11 Team Status: Active Member Role Status Dates Dr. Ruddy Phelps DO Family Provider Active Andrea Tapia MANAGER BABY, MANAGER BABY-C Primary Care Provider Active Team Status: Inactive Member Role Status Dates Andrea Tapia MANAGER BABY, MANAGER BABY-C Primary Care Provider, Attending Provider, Referring Provider Active Metal Patternmaker Relationship Specialty Start Date End Date Andrea Tapia, LOCK TENDER CHIEF OPERATOR [address] [place] [address] PCP - General Family Medicine 03/15/23 Metal Patternmaker Relationship Specialty Start Date End Date Andrea Tapia, LOCK TENDER CHIEF OPERATOR [address] [facility] [place] [address] PCP - General Family Medicine 03/15/23 Metal Patternmaker Relationship Specialty Start Date End Date Andrea Tapia, LOCK TENDER CHIEF OPERATOR [address] [facility] [place] [address] PCP - General Family Medicine 03/15/23 Metal Patternmaker Relationship Specialty Start Date End Date Andrea Tapia, LOCK TENDER CHIEF OPERATOR [address] [facility] [place] [address] PCP - General Family Medicine 03/15/23 Metal Patternmaker Relationship Specialty Start Date End Date Andrea Tapia, LOCK TENDER CHIEF OPERATOR [address] [facility] [place] [address] PCP - General Family Medicine 03/15/23 Metal Patternmaker Relationship Specialty Start Date End Date Andrea Tapia, LOCK TENDER CHIEF OPERATOR [address] [facility] [place] [address] PCP - General Family Medicine 03/15/23 Team Status: Active Member Role/Relationship Status Dates Dr. Ruddy Phelps , DO Family Provider Active Andrea Tapia MANAGER BABY, MANAGER BABY-C Primary Care Provider Active Team Status: Inactive Member Role/Relationship Status Dates Andrea Tapia MANAGER BABY, MANAGER BABY-C Primary Care Provider Active Start: February 06, 2025 End: February 06, 2025 Andrea Tapia MANAGER BABY, MANAGER BABY-C Referring Provider Ac tive Start: February 06, 2025 End: February 06, 2025 DAMIEN Holliday Attending Provider Active Start: February 06, 2025 End: February 06, 2025 Goals (unrecognized section and content) Goals may be documented in a n alternate sectionGoals may be documented in an alternate sectionGoals may be documented in an alternate sectionGoals may be documented in an alternate section INFORMATION SOURCE (unrecogn ized section and content) DATE CREATED AUTHOR 07/22/2024 [facility] DATE CREATED AUTHOR AUTHOR'S COLTEN GONZALEZ 02/23/2025 [facility] FOR RECORDS PERTAINING TO PATIENTS WHO [...] BE BASED ON THE PRIMARY CLINICAL RECORDS. [employer] provides no warranty or guarantee of the accuracy or completeness of information in this document.
== END | disposition home or self-care (01) ==
LOC: PSN 06:59
PROVIDERS: PCP Family Medicine; Referring Provider Obstetrics & Gynecology; Visit Provider Obstetrics & Gynecology
DX: E66.3 Overweight (principal)
CPT/HCPCS: 93005